=== PATIENT | female | born 1940 | race Caucasian/White ===

== ENCOUNTER → 2020-06-25 15:48 | Outpatient (CLI) | payer MEDICARE, BC, SELFPAY ==
--- NOTE | ~2020-06-25 | XR_ITS ---
XR knee RT 2V DATE: 06/25/2020 16:03 INDICATION: Right knee pain TECHNIQUE: AP and lateral views COMPARISON: None FINDINGS: Moderate osteopenia. No fracture or dislocation or joint effusion. There is minimal periarticular spurring of the patella. There is subtle chondrocalcinosis. Joint spaces are relatively preserved. IMPRESSION: Mild chondral calcinosis Mild osteoarthritis Moderate osteopenia Reviewed, dictated and finalized at location A.
== END ==
PROVIDERS: PCP Internal Medicine Gastroenterology; Visit Provider Nurse Practitioner Family
DX: M17.11 Unilateral primary osteoarthritis, right knee (principal)
CPT/HCPCS: 73560

== ENCOUNTER 2021-01-08 17:05 | IRF | payer MEDICARE, BC, SELFPAY ==
--- NOTE | ~2021-01-08 | XR_ITS ---
XR abdomen/kub 1V 01/16/2021 15:04 Indication: Diarrhea Procedure: KUB Comparison: No prior studies for comparison. Findings: Bowel gas pattern is nonobstructive. There are coarse calcifications in the pelvis, possibl y calcified uterine fibroids. Moderate lumbar spondylosis. No acute osseous abnormality. Lung bases a re unremarkable. Impression: 1: No acute abdominal abnormality. Reviewed, dictated and finalized at location B. Impression: 1: No acute abdominal abnormality.
--- NOTE | 2021-01-08 17:27 | WPDREHABHP ---
H&P: HPI History of Present Illness Date/Time: 01/08/21 17:27 Chief Complaint: Lumbar sacral spinal stenosis Narrative: HISTORY OF PRESENT ILLNESS: The patient's primary rehab impairment category is orthopedic other The etiologic diagnosis is lumbar sacral spinal stenosis I saw this patient [id number] on 01/08/2021 The patient is a 79-year-old female with past medical history of polio with bilateral lower extremity involvement and right facial weakness, Diabetes mellitus, hyperlipidemia, and chronic back and leg pain. Patient presented to [facility] on 01/03/2021 with bilateral lower extremity weakness radiculopathy from her lower back through the right thigh. MRI of the lumbar spine demonstrated L2-L3 mild canal stenosis, L3-4 and L4-5 bulge with moderate to severe canal stenosis, and left L5-S1 left the centric disc herniation and canal stenosis and lateral recess stenosis. On 01/03/[address] Huey Uribe patient underwent an L3-4 through L5-S1 posterior lumbar decompression laminectomy. Postoperative course was complicated by acute blood loss anemia, leukocytosis, fever low-grade of 103.2 on the morning of 01/05/2021. UA and chest x-rays were both negative. Wbc's was initially 12 and down trended to 10.9. Postop pain has been complicated after her block wore off. And patient has now been managed with oral analgesic in transdermal lidocaine patch. Patient will be transferred on Lovenox for DVT prophylaxis until patient is able to ambulate consistently over 150 ft. Therapy was initiated at the acute care facility and the patient transferred to us from [facility] on 01/08/2021 FALLS OR SURGERIES: The patient has had major surgeries consisting of the lumbar laminectomy of 01/03/2021 in the 100 days prior to admission. Patient has had 2 falls in the past year. They had [no] falls with injury in the past year. PRIOR LEVEL OF FUNCTION: Eating was [INDEPENDENT] Oral Care was [INDEPENDENT] Toileting Hygiene was [INDEPENDENT] Shower/Bathing was [INDEPENDENT] Upper Body Dressing was [INDEPENDENT] Lower Body Dressing was [INDEPENDENT] Donning/[place] Footwear was [INDEPENDENT] Rolling Left and Right was [INDEPENDENT] Sit to Lying was [INDEPENDENT] Lying to Sitting was [INDEPENDENT] Sit to Stand was [INDEPENDENT] Bed to Chair Transfers was [INDEPENDENT] Toilet Transfers was [INDEPENDENT] Walking was [INDEPENDENT] [>500 feet] with [NO DEVICE] patient does have a 2 wheeled walker and a cane that she uses for community Wheelchair Mobility was [NOT APPLICABLE PRIOR TO ADMISSION] Stairs were [INDEPENDENT] CURRENT LEVEL OF FUNCTION: Eating was setup for clean-up of Oral Care was set up or clean-up of Toileting Hygiene was dependent Shower/Bathing was substantial to max assistance Upper Body Dressing was partial to moderate assist Lower Body Dressing was substantial to maximal assist Donning/[place] Footwear was substantial to max Rolling Left and Right was partial to moderate Sit to Lying was partial to moderate Lying to Sitting was partial to moderate Sit to Stand was partial to moderate Bed to Chair Transfers were partial to moderate Toilet Transfers were partial to moderate Walking was 30 ft with rolling walker and partial to moderate assistance Wheelchair Mobility was not tested Stairs were not tested GOALS: Our therapists will evaluate the patient and establish the goals. However, upon pre-admission screening, the expected goals were to be independent for upper extremity ADLs and minimal assistance for lower extremity ADLs with self-care, INDEPENDENT with transfers, and [INDEPENDENT] with functional mobility so that the patient can return home. ESTIMATED LENGTH OF STAY: [10-14 days] POTENTIAL BARRIERS TO DISCHARGE: Family needs training. Severity of condition. Architectural barriers. ACTIVE CO-MORBIDITIES PRESENT ON ADMISSION: Active co-morbidities include low back pain, bila
--- NOTE | 2021-01-08 17:34 | ADMGEN ---
This patient, Nely Sweeney, was admitted to [facility] Room 224-02. Patient/family oriented to hospital policies and general routines including ID bracelet, bed and alarms, visiting hours, pain management, procedures, bathroom and other care routines, personal items, smoking policy, room service/diet, and visiting hours. Information on how to activate the Rapid Response Team has been discussed. Patient/Family are encouraged to report perceived risks to care and to ask questions if they do not understand what they are told or what they should do.
[2021-01-08 18:00] VITALS: BP 145/53; PULSE 73; RESP 18; TEMP 36.6; O2SAT 97; BMI 27.5
[2021-01-08 18:35] LABS: Mean Platelet Volume 9.5 fl (7.4-10.4); Platelet Count Result 370 k/mm3 (150-375)
[2021-01-08 18:45] LABS: Estimated Glomerular Filt Rate > 60
[2021-01-08] MEDS: CITALOPRAM HYDROBROMIDE 20 MG TABLET 40 MG PO (21:51)
[2021-01-08] MEDS: HYDROcodone/acetaminophen (*CRX) 5-325 MG TABLET 1 TAB PO (21:58)
[2021-01-08 22:00] VITALS: BP 141/78; PULSE 86; RESP 16; TEMP 37.3; O2SAT 100
[2021-01-08] MEDS: methocarbamoL 500 MG TABLET PO (22:44)
[2021-01-09 00:21] LABS: Glucose Point of Care 143 (65-105)
[2021-01-09] MEDS: HYDROcodone/acetaminophen (*CRX) 5-325 MG TABLET 2 TAB PO ×4 (02:49→20:31)
[2021-01-09 05:22] LABS: Basophils Absolute Auto 0.1 K/mm3 (0.0-0.1); Basophils Percent Auto 0.7 % (0.2-1.2); Eosinophils Absolute Auto 0.3 K/mm3 (0-0.3); Eosinophils Percent Auto 4.4 % (0-4.4); Hematocrit 24.6 % (37.0-47.0); Hemoglobin 7.9 g/dL (12.0-15.0); Immature Granulocyte Absolute 0.08 K/mm3 (0.00-0.031); Immature Granulocyte Percent A 1.1 % (0-0.5); Lymphocytes Absolute Auto 1.67 K/mm3 (0.9-3.2); Lymphocytes Percent Auto 22.3 % (18.3-44.2); Mean Corpuscular HGB Conc 32.1 g/dl (32-36); Mean Corpuscular Hemoglobin 27.1 pg (26-34); Mean Corpuscular Volume 84.5 fl (80-100); Mean Platelet Volume 9.5 fl (7.4-10.4); Monocytes Absolute Auto 0.9 K/mm3 (0.1-0.6); Monocytes Percent Auto 11.5 % (2.6-8.5); Neutrophils Absolute Auto 4.5 K/mm3 (1.3-6.7); Platelet Count Result 395 k/mm3 (150-375); Red Blood Count 2.91 M/mm3 (4.2-5.4); Red Cell Distribution Width 13.2 % (11.5-14.5); White Blood Count 7.5 K/mm3 (4.5-10.0)
[2021-01-09 05:37] LABS: Alanine Aminotransferase 36 U/L (4-35); Albumin Level 3.6 g/dL (3.5-5.1); Alkaline Phosphatase 136 U/L (38-126); Anion Gap 7 mmol/L (8-16); Aspartate Amino Transferase 36 U/L (14-36); Bilirubin,Total 0.3 mg/dL (0.2-1.3); Blood Urea Nitrogen 20 mg/dL (7-17); Calcium 8.6 mg/dL (8.4-10.2); Carbon Dioxide 30 mmol/L (22-30); Chloride 98 mmol/L (98-107); Estimated Glomerular Filt Rate 53; Glucose 124 mg/dL (65-105); Potassium 3.6 mmol/L (3.4-5.0); Sodium 135 mmol/L (137-145)
[2021-01-09 05:52] VITALS: BP 133/67; PULSE 70; RESP 16; TEMP 36.5; O2SAT 98
[2021-01-09 05:56] LABS: Hemoglobin A1C 5.8 % (<5.7)
[2021-01-09] MEDS: ENOXAPARIN 40 MG/0.4 ML SYRINGE SUB-Q (06:00)
[2021-01-09 06:51] LABS: Glucose Point of Care 127 (65-105)
[2021-01-09] MEDS: metFORMIN HCL 500 MG TABLET 1000 MG PO ×2 (09:19→17:58)
[2021-01-09] MEDS: GABAPENTIN 300 MG CAPSULE PO (09:19)
[2021-01-09] MEDS: PIOGLITAZONE HCL 15 MG TAB PO (09:19)
[2021-01-09] MEDS: methocarbamoL 500 MG TABLET PO ×2 (09:19→13:10)
[2021-01-09 12:30] VITALS: BMI 27.5
[2021-01-09 14:00] VITALS: BP 97/62; PULSE 79; RESP 14; TEMP 37.3; O2SAT 98
--- NOTE | 2021-01-09 15:17 | WPDNEURORHBP ---
Subjective Date/time seen: 01/09/21 15:17 Patient is seen during physical therapy. Patient complains of pain. Review of Systems Review of Systems: All systems reviewed & are unremarkable except as noted in HPI and below Exam Narrative: Exam Narrative: Patient is quite anxious and anticipates pain. Head reveals right facial paralysis. External ocular muscles are intact. eye contact is fair minus. Speech is dysarthric due to facial paralysis. Heart rate and rhythm is regular. Lungs are clear to auscultation. Abdomen is obese soft nontender bilateral upper extremity strength are 4-5 bilateral hip weakness is are noted at 2 at on the left and 2+ on the right. Babinski's are upgoing. Deep tendon reflexes are 2/4 to patella tendon. Objective Data Vital Signs Vital Signs: Vital Signs - 24 hr 01/08/21 18:00 01/08/21 22:00 01/09/21 05:52 Temperature 36.6 C 37.3 C 36.5 C Pulse Rate 73 86 70 Respiratory Rate 18 16 16 Blood Pressure 145/53 H 141/78 H 133/67 Pulse Oximetry 97 100 98 Intake/Output Intake/Output: Intake & Output 01/06/21 01/07/21 01/08/21 01/09/21 23:59 23:59 23:59 23:59 Intake Total 240 600 Balance 240 600 Meds/Results Medications: Active Medications Generic Name Dose Route Start Last Admin Trade Name Freq PRN Reason Stop Dose Admin Hydrocodone Bitart/Acetaminophen 1 tab 01/08/21 19:31 01/08/21 21:58 Hydrocodone/Acetaminophen (*Crx) 5-325 Mg Tablet PO 1 tab Q4H PRN Administration Pain (Scale Score 4-6) Hydrocodone Bitart/Acetaminophen 2 tab 01/08/21 19:31 01/09/21 02:49 Hydrocodone/Acetaminophen (*Crx) 5-325 Mg Tablet PO 2 tab Q4H PRN Administration Pain (Scale Score 7-10) Hydrocodone Bitart/Acetaminophen 2 tab 01/09/21 08:44 01/09/21 13:11 Hydrocodone/Acetaminophen (*Crx) 5-325 Mg Tablet PO 2 tab BID@0700,1200 SAMUEL Administration Citalopram Hydrobromide 40 mg 01/08/21 21:00 01/08/21 21:51 Citalopram Hydrobromide 20 Mg Tablet PO 40 mg HS SAMUEL Administration Dextrose 12.5 gm 01/08/21 17:37 Dextrose 50% 25 Gm/50 Ml Syringe IV PUSH PRN PRN Hypoglycemia Protocol Enoxaparin Sodium 40 mg 01/09/21 06:30 01/09/21 06:00 Enoxaparin 40 Mg/0.4 Ml Syringe SUB-Q 40 mg DAILY@0630 SAMUEL Administration Gabapentin 300 mg 01/09/21 09:00 01/09/21 09:19 Gabapentin 300 Mg Capsule PO 300 mg DAILY SAMUEL Administration Glucagon 1 mg 01/08/21 17:37 Glucagon For Inj 1 Mg Vial IM PRN PRN Hypoglycemia Protocol Glucose 15 gm 01/08/21 17:37 Glucose Oral Gel 15 Gm Of Glucse In 37.5 Gm Tube PO PRN PRN Hypoglycemia Protocol Dextrose 1,000 mls @ 100 mls/hr 01/08/21 17:37 Dextrose 5% 1,000 Ml IVPB PRN PRN Hypoglycemia Protocol Lidocaine 2 patch 01/10/21 09:00 Lidocaine 5% Patch TRANSDERM DAILY SAMUEL Metformin HCl 1,000 mg 01/09/21 08:00 01/09/21 09:19 Metformin Hcl 500 Mg Tablet PO 1,000 mg BIDWM SAMUEL Administration Methocarbamol 500 mg 01/08/21 19:31 01/08/21 22:44 Methocarbamol 500 Mg Tablet PO 500 mg Q12H PRN Administration Muscle Spasm Methocarbamol 500 mg 01/09/21 09:00 01/09/21 13:10 Methocarbamol 500 Mg Tablet PO 500 mg BID@0700,1200 SAMUEL Administration Pantoprazole Sodium 40 mg 01/08/21 19:31 Pantoprazole 40 Mg Tablet PO QAM PRN Gastric Reflux Pioglitazone HCl 15 mg 01/09/21 09:00 01/09/21 09:19 Pioglitazone Hcl 15 Mg Tab PO 15 mg DAILY SAMUEL Administration Labs Labs: Laboratory Results - last 24 hr 01/08/21 01/08/21 01/08/21 18:28 18:29 22:46 WBC RBC Hgb Hct MCV MCH MCHC RDW Plt Count 370 MPV 9.5 Immature Gran % (Auto) Neut % (Auto) Lymph % (Auto) [place] % (Auto) Eos % (Auto) Baso % (Auto) Lymph # (Auto) [place] # (Auto) Eos # (Auto) Baso # (Auto) Abs Immat Gran (auto) Absolute Neuts (auto)
[2021-01-09 17:33] LABS: Glucose Point of Care 113 (65-105)
[2021-01-09] MEDS: CITALOPRAM HYDROBROMIDE 20 MG TABLET 40 MG PO (20:33)
[2021-01-09 21:36] VITALS: BP 119/56; PULSE 80; RESP 16; TEMP 37.4; O2SAT 99
[2021-01-10 06:00] VITALS: BP 142/59; PULSE 76; RESP 16; TEMP 36.8; O2SAT 98
[2021-01-10] MEDS: ENOXAPARIN 40 MG/0.4 ML SYRINGE SUB-Q (06:31)
[2021-01-10] MEDS: HYDROcodone/acetaminophen (*CRX) 5-325 MG TABLET 1 TAB PO ×4 (06:31→20:18)
[2021-01-10] MEDS: methocarbamoL 500 MG TABLET PO ×2 (06:38→11:42)
[2021-01-10 07:03] LABS: Glucose Point of Care 119 (65-105)
[2021-01-10] MEDS: LIDOCAINE 5% PATCH 2 PATCH TRANSDERM (09:37)
--- NOTE | 2021-01-10 09:37 | RPD ---
INDIVIDUALIZED PLAN OF CARE FOR Nely Sweeney Brief Synthesis of Pre-Admission Screen, Post-Admission Evaluation and Therapy Evaluations: The patient presents to rehab with lumbar sacral spinal stenosis. Comorbidities include low back pain, bilateral leg pain, recurrent falls, disequilibrium, diabetic neuropathy, leukocytosis, fever, status post L3-S1 decompressive laminectomy, acute blood loss anemia, and acute postoperative pain. The complexity of the patient's medical management, nursing, and therapy needs require an inpatient rehab hospital stay with a physician-led interdisciplinary team approach. The patient?s needs will be best met in an intensive program vs. at a lower level of care. The patient requires physician services for medical oversight, management of post-op complications (acute blood loss anemia, leukocytosis, fever) in setting of present comorbidities, and pain management. The patient requires nursing services for anticoagulation therapy, diabetes training, DVT prophylactics, infection protection, medication management and education, pressure relief, and wound care Deficits include:ADLs, Balance, Endurance, Family Training/Education, Mobility, Pain Management, ROM, Safety, Strength, and Transfers. Wire Stripper/Case Management for: Discharge Planning and Patient/Family Counseling Physical Therapy: 5 days per week for 75 minutes. Treatments may include: Therapeutic Exercise, Gait Training, Neuromuscular Re-education, Transfer Training, Community Reintegration, Bed Mobility, Patient/Family Education, Wheelchair Mobility Group Therapy/Concurrent Therapy Rationales: -Improve attention span during functional activities in a distracted environment. -Enhance problem solving and/or adequate judgment skills during functional activities in a distracted environment. -Promote increased safety awareness in a distracted environment to reduce fall risk with functional tasks, transfers, and ambulation to allow a more safe, self-sufficient return to the home environment. -Improve dynamic balance skills to promote safety and independence with functional activities in a distracted environment for maximum gain. Occupational Therapy: 5 days per week for 75 minutes. Treatments may include: Therapeutic Exercise, Therapeutic Activity, Cognitive Training, Self-Care Transfer Training, Community Reintegration, Home Management, Patient/Family Education, Wheelchair Mobility Training, Energy Conservation Training Group Therapy/Concurrent Therapy Rationales: -Allow therapist to observe and teach generalization and carry-over of skills learned in individual therapy. -Enhance problem solving and sequencing skills during therapeutic activities in a distracted environment. -Promote increased safety awareness in a realistic setting to reduce fall risk with functional tasks due to visual and verbal distractions. -Increase functional level with ADLs, ADL transfers and use of adaptive equipment through therapeutic activities with others while promoting safety to allow a more safe, self-sufficient return home. Speech Therapy: 5 days per week for 30 minutes. Treatments may include: Dysphasia Therapy, Speech/Language/Communication Therapy, Cognitive Training, Patient/Family Education Group Therapy/Concurrent Therapy - Rationale: -Allow therapist to observe and teach generalization and carry-over of skills learned in individual therapy. -Improve comprehension skills with complex or abstract ideas through discussion in a realistic setting. -Enhance problem solving skills with complex issues during activities in a distracted environment. -Promote increased memory skills and concentration in a distracted environment for a safe transition home. -Improve attention and focus with language/communication skills in a realistic and supportive therapeutic setting. -Allow for practice of expression of basic needs and ideas through functional activities with others. Medical Prognosis: Good An
[2021-01-10] MEDS: metFORMIN HCL 500 MG TABLET 1000 MG PO ×2 (09:38→18:45)
[2021-01-10] MEDS: PIOGLITAZONE HCL 15 MG TAB PO (09:38)
[2021-01-10 14:00] VITALS: BP 117/57; PULSE 82; RESP 16; TEMP 37.6; O2SAT 97
--- NOTE | 2021-01-10 16:09 | WPDNEURORHBP ---
Subjective Date/time seen: 01/10/21 16:09 patient complains of bilateral lower extremity pain. Review of Systems Review of Systems: All systems reviewed & are unremarkable except as noted in HPI and below Functional Status Ambulation Ability Ability to Ambulate 10 Feet: Moderate Assistance X 1 Ambulation Assistive Devices: Walker, Wheeled Exam Narrative: Exam Narrative: Patient is quite anxious and anticipates pain. Head reveals right facial paralysis. External ocular muscles are intact. eye contact is fair minus. Speech is dysarthric due to facial paralysis. Heart rate and rhythm is regular. Lungs are clear to auscultation. Abdomen is obese soft nontender bilateral upper extremity strength are 4-5 bilateral hip weakness is are noted at 2 at on the left and 2+ on the right. Babinski's are upgoing. Deep tendon reflexes are 2/4 to patella tendon. Objective Data Vital Signs Vital Signs: Vital Signs - 24 hr 01/09/21 21:36 01/10/21 06:00 01/10/21 14:00 Temperature 37.4 C 36.8 C 37.6 C Pulse Rate 80 76 82 Respiratory Rate 16 16 16 Blood Pressure 119/56 L 142/59 H 117/57 L Pulse Oximetry 99 98 97 Intake/Output Intake/Output: Intake & Output 01/07/21 01/08/21 01/09/21 01/10/21 23:59 23:59 23:59 23:59 Intake Total 240 720 600 Balance 240 720 600 Meds/Results Medications: Active Medications Generic Name Dose Route Start Last Admin Trade Name Freq PRN Reason Stop Dose Admin Hydrocodone Bitart/Acetaminophen 1 tab 01/08/21 19:31 01/10/21 13:24 Hydrocodone/Acetaminophen (*Crx) 5-325 Mg Tablet PO 1 tab Q4H PRN Administration Pain (Scale Score 4-6) Hydrocodone Bitart/Acetaminophen 2 tab 01/08/21 19:31 01/09/21 20:31 Hydrocodone/Acetaminophen (*Crx) 5-325 Mg Tablet PO 2 tab Q4H PRN Administration Pain (Scale Score 7-10) Hydrocodone Bitart/Acetaminophen 1 tab 01/10/21 07:00 01/10/21 11:41 Hydrocodone/Acetaminophen (*Crx) 5-325 Mg Tablet PO 1 tab BID@0700,1200 SAMUEL Administration Citalopram Hydrobromide 40 mg 01/08/21 21:00 01/09/21 20:33 Citalopram Hydrobromide 20 Mg Tablet PO 40 mg HS SAMUEL Administration Dextrose 12.5 gm 01/08/21 17:37 Dextrose 50% 25 Gm/50 Ml Syringe IV PUSH PRN PRN Hypoglycemia Protocol Enoxaparin Sodium 40 mg 01/09/21 06:30 01/10/21 06:31 Enoxaparin 40 Mg/0.4 Ml Syringe SUB-Q 40 mg DAILY@0630 SAMUEL Administration Gabapentin 300 mg 01/10/21 21:00 Gabapentin 300 Mg Capsule PO HS SAMUEL Glucagon 1 mg 01/08/21 17:37 Glucagon For Inj 1 Mg Vial IM PRN PRN Hypoglycemia Protocol Glucose 15 gm 01/08/21 17:37 Glucose Oral Gel 15 Gm Of Glucse In 37.5 Gm Tube PO PRN PRN Hypoglycemia Protocol Dextrose 1,000 mls @ 100 mls/hr 01/08/21 17:37 Dextrose 5% 1,000 Ml IVPB PRN PRN Hypoglycemia Protocol Lidocaine 2 patch 01/10/21 09:00 01/10/21 09:37 Lidocaine 5% Patch TRANSDERM 2 patch DAILY SAMUEL Administration Metformin HCl 1,000 mg 01/09/21 08:00 01/10/21 09:38 Metformin Hcl 500 Mg Tablet PO 1,000 mg BIDWM SAMUEL Administration Methocarbamol 500 mg 01/08/21 19:31 01/08/21 22:44 Methocarbamol 500 Mg Tablet PO 500 mg Q12H PRN Administration Muscle Spasm Methocarbamol 500 mg 01/09/21 09:00 01/10/21 11:42 Methocarbamol 500 Mg Tablet PO 500 mg BID@0700,1200 SAMUEL Administration Pantoprazole Sodium 40 mg 01/08/21 19:31 Pantoprazole 40 Mg Tablet PO QAM PRN Gastric Reflux Pioglitazone HCl 15 mg 01/09/21 09:00 01/10/21 09:38 Pioglitazone Hcl 15 Mg Tab PO 15 mg DAILY SAMUEL Administration Labs Labs: Laboratory Results - last 24 hr 01/09/21 01/10/21 17:31 07:00 POC Capillary Glucose 113 H 119 H Progress Note: A&P Assessment and Plan (1) Degenerative lumbar spinal stenosis: Code(s): M48.061 - Spinal stenosis, lumbar region without neurogenic claudication
[2021-01-10 17:25] LABS: Glucose Point of Care 90 (65-105)
[2021-01-10] MEDS: CITALOPRAM HYDROBROMIDE 20 MG TABLET 40 MG PO (20:19)
[2021-01-10] MEDS: GABAPENTIN 300 MG CAPSULE PO (20:19)
[2021-01-10 22:00] VITALS: BP 119/59; PULSE 72; RESP 16; TEMP 36.4; O2SAT 98
[2021-01-11 05:56] VITALS: BP 146/77; PULSE 71; RESP 16; TEMP 37.1; O2SAT 98
[2021-01-11] MEDS: HYDROcodone/acetaminophen (*CRX) 5-325 MG TABLET 1 TAB PO ×4 (06:48→21:12)
[2021-01-11] MEDS: methocarbamoL 500 MG TABLET PO (06:48)
[2021-01-11] MEDS: ENOXAPARIN 40 MG/0.4 ML SYRINGE SUB-Q (06:49)
[2021-01-11 06:55] LABS: Glucose Point of Care 129 (65-105)
[2021-01-11] MEDS: LIDOCAINE 5% PATCH 2 PATCH TRANSDERM (09:16)
[2021-01-11] MEDS: metFORMIN HCL 500 MG TABLET 1000 MG PO ×2 (09:16→16:31)
[2021-01-11] MEDS: PIOGLITAZONE HCL 15 MG TAB PO (09:16)
--- NOTE | 2021-01-11 10:05 | WPDNEURORHBP ---
Subjective Date/time seen: 01/11/21 10:05 Interval history: DX lumbar sacral spinal stenosis The patient is a 79-year-old female with past medical history of polio with bilateral lower extremity involvement and right facial weakness, Diabetes mellitus, hyperlipidemia, and chronic back and leg pain. Patient presented to [facility] on 01/03/2021 with bilateral lower extremity weakness radiculopathy from her lower back through the right thigh. MRI of the lumbar spine demonstrated L2-L3 mild canal stenosis, L3-4 and L4-5 bulge with moderate to severe canal stenosis, and left L5-S1 left the centric disc herniation and canal stenosis and lateral recess stenosis. On 01/03/[address] Huey Uribe patient underwent an L3-4 through L5-S1 posterior lumbar decompression laminectomy. Postoperative course was complicated by acute blood loss anemia, leukocytosis, fever low-grade of 103.2 on the morning of 01/05/2021. UA and chest x-rays were both negative. Wbc's was initially 12 and down trended to 10.9. Postop pain has been complicated after her block wore off. And patient has now been managed with oral analgesic and transdermal lidocaine patch. Patient [facility] be [facility] for D[facility] prophylaxis until patient is able to ambulate consistently over 150 ft. Review of Systems Review of Systems: All systems reviewed & are unremarkable except as noted in HPI and below Functional Status Ambulation Ability Ability to Ambulate 10 Feet: Moderate Assistance X 1 Ambulation Assistive Devices: Walker, Wheeled Exam Narrative: Exam Narrative: Patient appears more calm. Head reveals right facial paralysis. External ocular muscles are intact. eye contact is fair minus. Speech is dysarthric due to facial paralysis. Heart rate and rhythm is regular. Lungs are clear to auscultation. Abdomen is obese soft nontender bilateral upper extremity strength are 4-5 bilateral hip weakness is are noted at 2 at on the left and 2+ on the right. Babinski's are upgoing. Deep tendon reflexes are 2/4 to patella tendon. Objective Data Vital Signs Vital Signs: Vital Signs - 24 hr 01/10/21 14:00 01/10/21 22:00 01/11/21 05:56 Temperature 37.6 C 36.4 C 37.1 C Pulse Rate 82 72 71 Respiratory Rate 16 16 16 Blood Pressure 117/57 L 119/59 L 146/77 H Pulse Oximetry 97 98 98 Intake/Output Intake/Output: Intake & Output 01/08/21 01/09/21 01/10/21 01/11/21 23:59 23:59 23:59 23:59 Intake Total 240 720 840 240 Balance 240 720 840 240 Meds/Results Medications: Active Medications Generic Name Dose Route Start Last Admin Trade Name Freq PRN Reason Stop Dose Admin Hydrocodone Bitart/Acetaminophen 1 tab 01/08/21 19:31 01/10/21 20:18 Hydrocodone/Acetaminophen (*Crx) 5-325 Mg Tablet PO 1 tab Q4H PRN Administration Pain (Scale Score 4-6) Hydrocodone Bitart/Acetaminophen 2 tab 01/08/21 19:31 01/09/21 20:31 Hydrocodone/Acetaminophen (*Crx) 5-325 Mg Tablet PO 2 tab Q4H PRN Administration Pain (Scale Score 7-10) Hydrocodone Bitart/Acetaminophen 1 tab 01/10/21 07:00 01/11/21 06:48 Hydrocodone/Acetaminophen (*Crx) 5-325 Mg Tablet PO 1 tab BID@0700,1200 SAMUEL Administration Citalopram Hydrobromide 40 mg 01/08/21 21:00 01/10/21 20:19 Citalopram Hydrobromide 20 Mg Tablet PO 40 mg HS SAMUEL Administration Dextrose 12.5 gm 01/08/21 17:37 Dextrose 50% 25 Gm/50 Ml Syringe IV PUSH PRN PRN Hypoglycemia Protocol Enoxaparin Sodium 40 mg 01/09/21 06:30 01/11/21 06:49 Enoxaparin 40 Mg/0.4 Ml Syringe SUB-Q 40 mg DAILY@0630 SAMUEL Administration Gabapentin 300 mg 01/10/21 21:00 01/10/21 20:19 Gabapentin 300 Mg Capsule PO 300 mg HS SAMUEL Administration Glucagon 1 mg 01/08/21 17:37 Glucagon For Inj 1 Mg Vial IM PRN PRN Hypoglycemia Protocol Glucose 15 gm 01/08/21 17:37 Glucose Oral Gel 15 Gm Of Glucse In 37.5 Gm Tube PO PRN PRN Hypoglycemia
[2021-01-11] MEDS: methocarbamoL 750 MG TABLET PO ×2 (11:01→16:31)
[2021-01-11 14:00] VITALS: BP 125/59; PULSE 85; RESP 18; TEMP 36.7; O2SAT 97
[2021-01-11 16:44] LABS: Glucose Point of Care 111 (65-105)
[2021-01-11] MEDS: CITALOPRAM HYDROBROMIDE 20 MG TABLET 40 MG PO (21:02)
[2021-01-11] MEDS: GABAPENTIN 300 MG CAPSULE PO (21:03)
[2021-01-11 22:00] VITALS: BP 132/63; PULSE 75; RESP 18; TEMP 36.3; O2SAT 97
[2021-01-12 06:00] VITALS: BP 147/65; PULSE 69; RESP 18; TEMP 36.9; O2SAT 97
[2021-01-12] MEDS: HYDROcodone/acetaminophen (*CRX) 5-325 MG TABLET 1 TAB PO ×3 (06:32→20:18)
[2021-01-12] MEDS: ENOXAPARIN 40 MG/0.4 ML SYRINGE SUB-Q (06:44)
[2021-01-12 06:52] LABS: Glucose Point of Care 113 (65-105)
[2021-01-12] MEDS: methocarbamoL 750 MG TABLET PO ×3 (08:24→17:12)
[2021-01-12] MEDS: metFORMIN HCL 500 MG TABLET 1000 MG PO ×2 (08:24→17:12)
[2021-01-12] MEDS: PIOGLITAZONE HCL 15 MG TAB PO (08:25)
[2021-01-12] MEDS: LIDOCAINE 5% PATCH 2 PATCH TRANSDERM (08:25)
--- NOTE | 2021-01-12 08:41 | WPDNEURORHBP ---
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 Patient presented to [facility] on 01/03/2021 with bilateral lower extremity weakness, radiculopathy from her lower back through the right thigh. MRI of the lumbar spine demonstrated L2-L3 mild canal stenosis, L3-4 and L4-5 bulge with moderate to severe canal stenosis, and left L5-S1 left the centric disc herniation and canal stenosis and lateral recess stenosis. On 01/03/[address] Huey Uribe, patient underwent an L3-4 through L5-S1 posterior lumbar decompression laminectomy. Postoperative course was complicated by acute blood loss anemia, leukocytosis, fever low-grade of 103.2 on the morning of 01/05/2021. UA and chest x-rays were both negative. Wbc's was initially 12 and down trended to 10.9. Postop pain has been complicated after her block wore off. And patient has now been managed with oral analgesic and transdermal lidocaine patch. Patient will be transferred on Lovenox for DVT prophylaxis until patient is able to ambulate consistently over 150 ft. Patient is alert and bright. Patient states she is not in pain currently. Patient did not walk with therapy yesterday because of pain. Will increase gabapentin Review of Systems Review of Systems: All systems reviewed & are unremarkable except as noted in HPI and below Functional Status Ambulation Ability Ability to Ambulate 10 Feet: Moderate Assistance X 1 Ambulation Assistive Devices: Walker, Wheeled Exam Narrative: Exam Narrative: Patient more alert and does not voice any pain symptoms for the first time. Head reveals right facial paralysis. External ocular muscles are intact. eye contact is fair minus. Speech is dysarthric due to facial paralysis. Heart rate and rhythm is regular. Lungs are clear to auscultation. Abdomen is obese soft nontender. Bilateral upper extremity strength are 4-5, bilateral hip weakness is are noted at 2+at on the left and 3- on the right. Babinski's are upgoing. Deep tendon reflexes are 2/4 to patella tendon. No spasms noted on exam today. Patient did not walk yesterday because of pain. Objective Data Vital Signs Vital Signs: Vital Signs - 24 hr 01/11/21 14:00 01/11/21 22:00 01/12/21 06:00 Temperature 36.7 C 36.3 C L 36.9 C Pulse Rate 85 75 69 Respiratory Rate 18 18 18 Blood Pressure 125/59 L 132/63 147/65 H Pulse Oximetry 97 97 97 Intake/Output Intake/Output: Intake & Output 01/09/21 01/10/21 01/11/21 01/12/21 23:59 23:59 23:59 23:59 Intake Total 720 840 810 120 Balance 720 840 810 120 Meds/Results Medications: Active Medications Generic Name Dose Route Start Last Admin Trade Name Freq PRN Reason Stop Dose Admin Hydrocodone Bitart/Acetaminophen 1 tab 01/08/21 19:31 01/11/21 21:12 Hydrocodone/Acetaminophen (*Crx) 5-325 Mg Tablet PO 1 tab Q4H PRN Administration Pain (Scale Score 4-6) Hydrocodone Bitart/Acetaminophen 2 tab 01/08/21 19:31 01/09/21 20:31 Hydrocodone/Acetaminophen (*Crx) 5-325 Mg Tablet PO 2 tab Q4H PRN Administration Pain (Scale Score 7-10) Hydrocodone Bitart/Acetaminophen 1 tab 01/10/21 07:00 01/12/21 06:32 Hydrocodone/Acetaminophen (*Crx) 5-325 Mg Tablet PO 1 tab BID@0700,1200 SAMUEL Administration Citalopram Hydrobromide 40 mg 01/08/21 21:00 01/11/21 21:02 Citalopram Hydrobromide 20 Mg Tablet PO 40 mg HS SAMUEL Administration Dextrose 12.5 gm 01/08/21 17:37 Dextrose 50% 25 Gm/50 Ml Syringe IV PUSH PRN PRN Hypoglycemia Protocol Enoxaparin Sodium 40 mg 01/09/21 06:30 01/12/21 06:44 Enoxaparin 40 Mg/0.4 Ml Syringe SUB-Q 40 mg DAILY@0630 SAMUEL Administration G
[2021-01-12] MEDS: GABAPENTIN 100 MG CAPSULE PO ×2 (09:12→13:47)
[2021-01-12 14:00] VITALS: BP 107/46; PULSE 83; RESP 16; TEMP 36.7; O2SAT 93
[2021-01-12 17:09] LABS: Glucose Point of Care 97 (65-105)
[2021-01-12] MEDS: CITALOPRAM HYDROBROMIDE 20 MG TABLET 40 MG PO (20:17)
[2021-01-12] MEDS: GABAPENTIN 300 MG CAPSULE PO (20:17)
[2021-01-12 20:20] VITALS: PULSE 64; RESP 16; O2SAT 95
[2021-01-12 21:24] VITALS: BP 116/49; PULSE 64; RESP 16; TEMP 36.5; O2SAT 95
[2021-01-13 06:00] VITALS: BP 139/65; PULSE 73; RESP 16; TEMP 36.2; O2SAT 95
[2021-01-13] MEDS: ENOXAPARIN 40 MG/0.4 ML SYRINGE SUB-Q (06:17)
[2021-01-13] MEDS: HYDROcodone/acetaminophen (*CRX) 5-325 MG TABLET 1 TAB PO ×2 (06:20→11:59)
[2021-01-13 06:48] LABS: Glucose Point of Care 112 (65-105)
[2021-01-13] MEDS: GABAPENTIN 100 MG CAPSULE PO ×2 (08:38→13:02)
[2021-01-13] MEDS: methocarbamoL 750 MG TABLET PO ×3 (08:38→16:59)
[2021-01-13] MEDS: metFORMIN HCL 500 MG TABLET 1000 MG PO ×2 (08:38→16:59)
[2021-01-13] MEDS: LIDOCAINE 5% PATCH 2 PATCH TRANSDERM (08:38)
[2021-01-13] MEDS: PIOGLITAZONE HCL 15 MG TAB PO (08:38)
--- NOTE | 2021-01-13 11:37 | PCPTNOTE ---
eNly Sweeney was evaluated for a two wheeled walker on 01/13/2021 by this physical therapist branch assistant. The two wheeled walker will resolve patient's mobility limitations and will be used for ADL's within the home. The patient can safely use the two wheeled walker. ?The two wheeled walker will resolve the patient?s mobility deficits, including spinal precautions, increased pain, decreased endurance, decreased strength, decreased balance, and decreased safety awareness. Sara Singh, HR RECRUITER
[2021-01-13 14:00] VITALS: BP 122/55; PULSE 77; RESP 20; TEMP 36.3; O2SAT 95
--- NOTE | 2021-01-13 14:15 | WPDNEURORHBP ---
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 Patient presented to [facility] on 01/03/2021 with bilateral lower extremity weakness, radiculopathy from her lower back through the right thigh. MRI of the lumbar spine demonstrated L2-L3 mild canal stenosis, L3-4 and L4-5 bulge with moderate to severe canal stenosis, and left L5-S1 left the centric disc herniation and canal stenosis and lateral recess stenosis. On 01/03/[address] Huey Uribe, patient underwent an L3-4 through L5-S1 posterior lumbar decompression laminectomy. Postoperative course was complicated by acute blood loss anemia, leukocytosis, fever low-grade of 103.2 on the morning of 01/05/2021. UA and chest x-rays were both negative. Wbc's was initially 12 and down trended to 10.9. Postop pain has been complicated after her block wore off. And patient has now been managed with oral analgesic and transdermal lidocaine patch. Patient will be transferred on Lovenox for DVT prophylaxis until patient is able to ambulate consistently over 150 ft. Patient only walking short distance. Pain is limiting factor Review of Systems Review of Systems: All systems reviewed & are unremarkable except as noted in HPI and below Functional Status Ambulation Ability Ability to Ambulate 10 Feet: Moderate Assistance X 1 Ambulation Assistive Devices: Walker, Wheeled Exam Narrative: Exam Narrative: Patient more alert and does not voice any pain symptoms for the first time. Head reveals right facial paralysis. External ocular muscles are intact. Speech is dysarthric due to facial paralysis. Heart rate and rhythm is regular. Lungs are clear to auscultation. Abdomen is obese soft nontender. Bilateral upper extremity strength are 4-5, bilateral hip weakness is are noted at 2+at on the left and 3- on the right. Babinski's are upgoing. Deep tendon reflexes are 2/4 to patella tendon. No spasms noted on exam today. Objective Data Vital Signs Vital Signs: Vital Signs - 24 hr 01/12/21 20:20 01/12/21 21:24 01/13/21 06:00 Temperature 36.5 C 36.2 C L Pulse Rate 64 64 73 Respiratory Rate 16 16 16 Blood Pressure 116/49 L 139/65 Pulse Oximetry 95 95 95 Intake/Output Intake/Output: Intake & Output 01/10/21 01/11/21 01/12/21 01/13/21 23:59 23:59 23:59 23:59 Intake Total 840 810 600 480 Balance 840 810 600 480 Meds/Results Medications: Active Medications Generic Name Dose Route Start Last Admin Trade Name Freq PRN Reason Stop Dose Admin Hydrocodone Bitart/Acetaminophen 1 tab 01/08/21 19:31 01/12/21 20:18 Hydrocodone/Acetaminophen (*Crx) 5-325 Mg Tablet PO 1 tab Q4H PRN Administration Pain (Scale Score 4-6) Hydrocodone Bitart/Acetaminophen 2 tab 01/08/21 19:31 01/09/21 20:31 Hydrocodone/Acetaminophen (*Crx) 5-325 Mg Tablet PO 2 tab Q4H PRN Administration Pain (Scale Score 7-10) Hydrocodone Bitart/Acetaminophen 1 tab 01/10/21 07:00 01/13/21 11:59 Hydrocodone/Acetaminophen (*Crx) 5-325 Mg Tablet PO 1 tab BID@0700,1200 SAMUEL Administration Citalopram Hydrobromide 40 mg 01/08/21 21:00 01/12/21 20:17 Citalopram Hydrobromide 20 Mg Tablet PO 40 mg HS SAMUEL Administration Dextrose 12.5 gm 01/08/21 17:37 Dextrose 50% 25 Gm/50 Ml Syringe IV PUSH PRN PRN Hypoglycemia Protocol Enoxaparin Sodium 40 mg 01/09/21 06:30 01/13/21 06:17 Enoxaparin 40 Mg/0.4 Ml Syringe SUB-Q 40 mg DAILY@0630 SAMUEL Administration Gabapentin 300 mg 01/10/21 21:00 01/12/21 20:17 Gabapentin 300 Mg Capsule PO 300 mg HS SAMUEL Administration Gabapentin 100 mg 01/12/21 09:00 01/13/21 13:02 Gabapentin 100
--- NOTE | 2021-01-13 14:48 | PCPTNOTE ---
Sara Singh PTA completed an inpatient rehab wheelchair evaluation on Nely Sweeney on 01/13/2021. The patient is unable to safely and independently ambulate household distances due to their current impairments. Their diagnosis is decompressive laminectomy and their impairments include decreased strength, decreased endurance, decreased range of motion, decreased balance, lower extremity weakness, and ataxia. Nely's weight bearing status is weight-bearing as tolerated on the bilateral lower legs. The patient demonstrates significant functional mobility limitations that impair their ability to participate in mobility-related activities of daily living (MRADLs), including toileting, feeding, dressing, grooming, and bathing in the customary locations in the home. These limitations cannot be sufficiently resolved by the use of an appropriately fitted cane or walker. It is recommended that the patient utilize a wheelchair for functional mobility within the home in order to facilitate optimal safety, independence and participation in all MRADL's and adequately access their home environment on a regular basis. The patient's home provides adequate access between rooms, maneuvering space, and surfaces to accommodate the recommended wheelchair. The use of a wheelchair for functional mobility is strongly recommended and the patient is receptive to using the wheelchair. The use of this wheelchair will significantly improve the patient's ability to participate in MRADLS and the patient will use it on a regular basis in the home. This will facilitate optimal safety, independence, and participation. The patient has demonstrated sufficient physical and mental capabilities needed to safely propel a manual wheelchair that is provided in the home during a typical day. Recommended Wheelchair Frame: STANDARD Recommended Wheelchair Size: 16X16, seat to floor height 16 inches (patient height 4ft 10in) Recommended Wheelchair Cushion: STANDARD Wheelchair Leg Recommendations: BILATERAL SWING AWAY LEG RESTS -Anti-tippers are recommended due to patient demonstrating increased risk for falls. They would benefit from anti-tippers with added safety and stabilization. -Adjustable arm height is recommended because the patient requires an arm height that is different than that which is available using non-adjustable arms. The patient spends at least 2 hours per day in the wheelchair. Sara Singh PTA 01/13/21 Evaluating Therapist Date I agree with and certify that the above recommendation is medically necessary. Referring Physician Date I agree with and certify that the above recommendation is medically necessary. Referring Physician Date
[2021-01-13 17:26] LABS: Glucose Point of Care 102 (65-105)
[2021-01-13] MEDS: CITALOPRAM HYDROBROMIDE 20 MG TABLET 40 MG PO (21:32)
[2021-01-13] MEDS: GABAPENTIN 300 MG CAPSULE PO (21:32)
[2021-01-13 21:38] VITALS: BP 100/78; PULSE 84; RESP 16; TEMP 36.7; O2SAT 100
[2021-01-13] MEDS: HYDROcodone/acetaminophen (*CRX) 5-325 MG TABLET 2 TAB PO (21:39)
[2021-01-14 06:00] VITALS: BP 134/64; PULSE 75; RESP 16; TEMP 36.7; O2SAT 98
[2021-01-14] MEDS: ENOXAPARIN 40 MG/0.4 ML SYRINGE SUB-Q (06:30)
[2021-01-14] MEDS: HYDROcodone/acetaminophen (*CRX) 5-325 MG TABLET 1 TAB PO ×2 (06:30→21:05)
[2021-01-14 06:47] LABS: Glucose Point of Care 112 (65-105)
--- NOTE | 2021-01-14 10:54 | PCNFU ---
Nutrition Follow-Up Complete: Increased protein/kcal needs related to increased demands for healing and recovery as evidenced by recent laminectomy. Goal: Patient to consume 75% of meals/supplements or greater. Pt current nutrition is Diabetic Carbohydrate Consistent Diet. Last recorded weight is 59.7 kg. Bowel Motility: Last BM: 01/13 Labs Reviewed: Glu 112 Meds Noted: Hydrocodone, Celexa, Lovenox, Gabapentin, Lidoderm, Metformin, Robaxin, Protonix, Actos. Additional Notes: Agree with current diet order. Patient reports that she has a poor appetite but eats when meals come. Patient is eating 50 to 100% of meals. Patient requested discontinuing Glucerna Nutritional Shakes because patient thinks it might contribute to her loose stools. Patient explained that she does not each much when she is at home. Follow up in 7 days.
[2021-01-14] MEDS: metFORMIN HCL 500 MG TABLET 1000 MG PO ×2 (10:56→17:46)
[2021-01-14] MEDS: methocarbamoL 750 MG TABLET PO ×3 (10:56→17:46)
[2021-01-14] MEDS: LIDOCAINE 5% PATCH 2 PATCH TRANSDERM (10:57)
[2021-01-14] MEDS: GABAPENTIN 100 MG CAPSULE PO ×2 (10:57→14:31)
[2021-01-14] MEDS: PIOGLITAZONE HCL 15 MG TAB PO (10:57)
--- NOTE | 2021-01-14 11:19 | WPDNEURORHBP ---
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 Patient presented to [facility] on 01/03/2021 with bilateral lower extremity weakness, radiculopathy from her lower back through the right thigh. MRI of the lumbar spine demonstrated L2-L3 mild canal stenosis, L3-4 and L4-5 bulge with moderate to severe canal stenosis, and left L5-S1 left the centric disc herniation and canal stenosis and lateral recess stenosis. On 01/03/[address] Huey Uribe, patient underwent an L3-4 through L5-S1 posterior lumbar decompression laminectomy. Postoperative course was complicated by acute blood loss anemia, leukocytosis, fever low-grade of 103.2 on the morning of 01/05/2021. UA and chest x-rays were both negative. Wbc's was initially 12 and down trended to 10.9. Postop pain has been complicated after her block wore off. And patient has now been managed with oral analgesic and transdermal lidocaine patch. [facility] until patient is able to ambulate consistently over 150 ft. Patient only walking short distance. Pain is limiting factor. Review of Systems Review of Systems: All systems reviewed & are unremarkable except as noted in HPI and below Functional Status Ambulation Ability Ability to Ambulate 10 Feet: Moderate Assistance X 1 Ambulation Assistive Devices: Walker, Wheeled Exam Narrative: Exam Narrative: Patient resting comfortably in bed. Patient states she has no pain in bed but has difficulty with gait. Head reveals right facial paralysis. External ocular muscles are intact. Speech is dysarthric due to facial paralysis. Heart rate and rhythm is regular. Lungs are clear to auscultation. Abdomen is obese soft nontender. Bilateral upper extremity strength are 4-5, bilateral hip weakness is are noted at 2+at on the left and 3- on the right. Babinski's are upgoing. Deep tendon reflexes are 2/4 to patella tendon. No spasms noted on exam today. Objective Data Vital Signs Vital Signs: Vital Signs - 24 hr 01/13/21 14:00 01/13/21 21:38 01/14/21 06:00 Temperature 36.3 C L 36.7 C 36.7 C Pulse Rate 77 84 75 Respiratory Rate 20 16 16 Blood Pressure 122/55 L 100/78 134/64 Pulse Oximetry 95 100 98 Intake/Output Intake/Output: Intake & Output 01/11/21 01/12/21 01/13/21 01/14/21 23:59 23:59 23:59 23:59 Intake Total 810 600 720 240 Balance 810 600 720 240 Meds/Results Medications: Active Medications Generic Name Dose Route Start Last Admin Trade Name Freq PRN Reason Stop Dose Admin Hydrocodone Bitart/Acetaminophen 1 tab 01/08/21 19:31 01/12/21 20:18 Hydrocodone/Acetaminophen (*Crx) 5-325 Mg Tablet PO 1 tab Q4H PRN Administration Pain (Scale Score 4-6) Hydrocodone Bitart/Acetaminophen 2 tab 01/08/21 19:31 01/13/21 21:39 Hydrocodone/Acetaminophen (*Crx) 5-325 Mg Tablet PO 2 tab Q4H PRN Administration Pain (Scale Score 7-10) Hydrocodone Bitart/Acetaminophen 2 tab 01/14/21 12:00 Hydrocodone/Acetaminophen (*Crx) 5-325 Mg Tablet PO BID@0700,1200 SAMUEL Citalopram Hydrobromide 40 mg 01/08/21 21:00 01/13/21 21:32 Citalopram Hydrobromide 20 Mg Tablet PO 40 mg HS SAMUEL Administration Dextrose 12.5 gm 01/08/21 17:37 Dextrose 50% 25 Gm/50 Ml Syringe IV PUSH PRN PRN Hypoglycemia Protocol Enoxaparin Sodium 40 mg 01/09/21 06:30 01/14/21 06:30 Enoxaparin 40 Mg/0.4 Ml Syringe SUB-Q 40 mg DAILY@0630 SAMUEL Administration Gabapentin 300 mg 01/10/21 21:00 01/13/21 21:32 Gabapentin 300 Mg Capsule PO 300 mg HS SAMUEL Administration Gabapentin 100 mg 01/12/21 09:00 01/14/21 10:57 Gabapen
--- NOTE | 2021-01-14 11:59 | PCNSR ---
On 01/14/21, the student, Isi Pal, provided care and completed Converser documentation on this patient. I have reviewed the student's documentation and agree with the findings. In addition, previous intake goal was being met. Will continue to monitor with same goal.
[2021-01-14] MEDS: HYDROcodone/acetaminophen (*CRX) 5-325 MG TABLET 2 TAB PO (12:23)
[2021-01-14 14:00] VITALS: BP 116/58; PULSE 80; RESP 18; TEMP 36.1; O2SAT 100
[2021-01-14 17:11] LABS: Glucose Point of Care 101 (65-105)
[2021-01-14] MEDS: GABAPENTIN 300 MG CAPSULE PO (20:57)
[2021-01-14] MEDS: CITALOPRAM HYDROBROMIDE 20 MG TABLET 40 MG PO (20:57)
[2021-01-14 22:00] VITALS: BP 125/55; PULSE 78; RESP 16; TEMP 36.3; O2SAT 98
[2021-01-15] MEDS: HYDROcodone/acetaminophen (*CRX) 5-325 MG TABLET 2 TAB PO ×3 (05:32→20:12)
[2021-01-15 06:00] VITALS: BP 125/68; PULSE 77; RESP 16; TEMP 36.8; O2SAT 98
[2021-01-15] MEDS: ENOXAPARIN 40 MG/0.4 ML SYRINGE SUB-Q (06:55)
[2021-01-15 07:13] LABS: Glucose Point of Care 117 (65-105)
[2021-01-15] MEDS: metFORMIN HCL 500 MG TABLET 1000 MG PO ×2 (08:58→17:33)
[2021-01-15] MEDS: LIDOCAINE 5% PATCH 2 PATCH TRANSDERM (08:58)
[2021-01-15] MEDS: methocarbamoL 750 MG TABLET PO ×3 (08:58→17:33)
[2021-01-15] MEDS: GABAPENTIN 100 MG CAPSULE PO ×2 (08:59→13:37)
[2021-01-15] MEDS: PIOGLITAZONE HCL 15 MG TAB PO (08:59)
[2021-01-15 14:00] VITALS: BP 142/77; PULSE 80; RESP 18; TEMP 36.8; O2SAT 99
--- NOTE | 2021-01-15 14:14 | WPDNEURORHBP ---
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 Patient presented to [facility] on 01/03/2021 with bilateral lower extremity weakness, radiculopathy from her lower back through the right thigh. MRI of the lumbar spine demonstrated L2-L3 mild canal stenosis, L3-4 and L4-5 bulge with moderate to severe canal stenosis, and left L5-S1 left the centric disc herniation and canal stenosis and lateral recess stenosis. On 01/03/[address] Huey Uribe, patient underwent an L3-4 through L5-S1 posterior lumbar decompression laminectomy. Postoperative course was complicated by acute blood loss anemia, leukocytosis, fever low-grade of 103.2 on the morning of 01/05/2021. UA and chest x-rays were both negative. Wbc's was initially 12 and down trended to 10.9. Postop pain has been complicated after her block wore off. And patient has now been managed with oral analgesic and transdermal lidocaine patch. Patient will be transferred on Lovenox for DVT prophylaxis until patient is able to ambulate consistently over 150 ft. Patient seen with PT. Patient is walking greater distance and has decreased pain. Review of Systems Review of Systems: All systems reviewed & are unremarkable except as noted in HPI and below Functional Status Ambulation Ability Ability to Ambulate 10 Feet: Contact Guard Ability to Ambulate 50 Feet With 2 Turns: Contact Guard Ability to Ambulate 150 Feet: Contact Guard Ambulation Assistive Devices: Walker, Wheeled Exam Narrative: Exam Narrative: Head reveals right facial paralysis. External ocular muscles are intact. Speech is dysarthric due to facial paralysis. Heart rate and rhythm is regular. Lungs are clear to auscultation. Abdomen is obese soft nontender. Bilateral upper extremity strength are 4-5, bilateral hip weakness is are noted at 3/5 Babinski's are upgoing. Deep tendon reflexes are 2/4 to patella tendon. No spasms noted on exam today. Objective Data Vital Signs Vital Signs: Vital Signs - 24 hr 01/14/21 22:00 01/15/21 06:00 Temperature 36.3 C L 36.8 C Pulse Rate 78 77 Respiratory Rate 16 16 Blood Pressure 125/55 L 125/68 Pulse Oximetry 98 98 Intake/Output Intake/Output: Intake & Output 01/12/21 01/13/21 01/14/21 01/15/21 23:59 23:59 23:59 23:59 Intake Total 600 720 840 840 Balance 600 720 840 840 Meds/Results Medications: Active Medications Generic Name Dose Route Start Last Admin Trade Name Freq PRN Reason Stop Dose Admin Hydrocodone Bitart/Acetaminophen 1 tab 01/08/21 19:31 01/14/21 21:05 Hydrocodone/Acetaminophen (*Crx) 5-325 Mg Tablet PO 1 tab Q4H PRN Administration Pain (Scale Score 4-6) Hydrocodone Bitart/Acetaminophen 2 tab 01/08/21 19:31 01/13/21 21:39 Hydrocodone/Acetaminophen (*Crx) 5-325 Mg Tablet PO 2 tab Q4H PRN Administration Pain (Scale Score 7-10) Hydrocodone Bitart/Acetaminophen 2 tab 01/14/21 12:00 01/15/21 11:07 Hydrocodone/Acetaminophen (*Crx) 5-325 Mg Tablet PO 2 tab BID@0700,1200 SAMUEL Administration Citalopram Hydrobromide 40 mg 01/08/21 21:00 01/14/21 20:57 Citalopram Hydrobromide 20 Mg Tablet PO 40 mg HS SAMUEL Administration Dextrose 12.5 gm 01/08/21 17:37 Dextrose 50% 25 Gm/50 Ml Syringe IV PUSH PRN PRN Hypoglycemia Protocol Enoxaparin Sodium 40 mg 01/09/21 06:30 01/15/21 06:55 Enoxaparin 40 Mg/0.4 Ml Syringe SUB-Q 40 mg DAILY@0630 SAMUEL Administration Gabapentin 300 mg 01/10/21 21:00 01/14/21 20:57 Gabapentin 300 Mg Capsule PO 300 mg HS SAMUEL Administration Gabapentin 100 mg 01/12/21 09:00 01/15/21 13:37 Gabapentin 100 Mg Capsule PO 100 mg
[2021-01-15 17:07] LABS: Glucose Point of Care 120 (65-105)
[2021-01-15] MEDS: CITALOPRAM HYDROBROMIDE 20 MG TABLET 40 MG PO (20:12)
[2021-01-15] MEDS: GABAPENTIN 300 MG CAPSULE PO (20:12)
[2021-01-16 05:43] LABS: Basophils Absolute Auto 0.1 K/mm3 (0.0-0.1); Basophils Percent Auto 0.6 % (0.2-1.2); Eosinophils Absolute Auto 0.5 K/mm3 (0-0.3); Eosinophils Percent Auto 3.5 % (0-4.4); Hematocrit 28.9 % (37.0-47.0); Hemoglobin 9.1 g/dL (12.0-15.0); Immature Granulocyte Absolute 0.11 K/mm3 (0.00-0.031); Immature Granulocyte Percent A 0.9 % (0-0.5); Lymphocytes Absolute Auto 2.55 K/mm3 (0.9-3.2); Lymphocytes Percent Auto 20.1 % (18.3-44.2); Mean Corpuscular HGB Conc 31.5 g/dl (32-36); Mean Corpuscular Hemoglobin 27.7 pg (26-34); Mean Corpuscular Volume 88.1 fl (80-100); Mean Platelet Volume 9.6 fl (7.4-10.4); Monocytes Absolute Auto 0.7 K/mm3 (0.1-0.6); Monocytes Percent Auto 5.4 % (2.6-8.5); Neutrophils Absolute Auto 8.8 K/mm3 (1.3-6.7); Neutrophils Percent Auto 69.5 % (45.5-73.1); Platelet Count Result 809 k/mm3 (150-375); Red Blood Count 3.28 M/mm3 (4.2-5.4); Red Cell Distribution Width 13.8 % (11.5-14.5); White Blood Count 12.7 K/mm3 (4.5-10.0)
[2021-01-16 05:44] LABS: Alanine Aminotransferase 26 U/L (4-35); Albumin Level 3.9 g/dL (3.5-5.1); Alkaline Phosphatase 144 U/L (38-126); Anion Gap 7 mmol/L (8-16); Aspartate Amino Transferase 33 U/L (14-36); Bilirubin,Total 0.2 mg/dL (0.2-1.3); Blood Urea Nitrogen 21 mg/dL (7-17); Calcium 9.3 mg/dL (8.4-10.2); Carbon Dioxide 28 mmol/L (22-30); Chloride 102 mmol/L (98-107); Estimated Glomerular Filt Rate 53; Glucose 92 mg/dL (65-105); Potassium 4.1 mmol/L (3.4-5.0); Sodium 137 mmol/L (137-145)
[2021-01-16 06:00] VITALS: BP 130/59; PULSE 68; RESP 20; TEMP 36.2; O2SAT 98
[2021-01-16] MEDS: HYDROcodone/acetaminophen (*CRX) 7.5-325 MG TABLET 1 TAB PO ×2 (06:39→12:13)
[2021-01-16] MEDS: ENOXAPARIN 40 MG/0.4 ML SYRINGE SUB-Q (06:39)
[2021-01-16 07:16] LABS: Glucose Point of Care 115 (65-105)
[2021-01-16] MEDS: metFORMIN HCL 500 MG TABLET 1000 MG PO ×2 (08:39→17:01)
[2021-01-16] MEDS: PIOGLITAZONE HCL 15 MG TAB PO (08:39)
[2021-01-16] MEDS: LIDOCAINE 5% PATCH 2 PATCH TRANSDERM (08:39)
[2021-01-16] MEDS: GABAPENTIN 100 MG CAPSULE PO ×2 (08:39→14:40)
[2021-01-16] MEDS: methocarbamoL 750 MG TABLET PO (08:40)
--- NOTE | 2021-01-16 11:43 | WPDNEURORHBP ---
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 Patient presented to [facility] on 01/03/2021 with bilateral lower extremity weakness, radiculopathy from her lower back through the right thigh. MRI of the lumbar spine demonstrated L2-L3 mild canal stenosis, L3-4 and L4-5 bulge with moderate to severe canal stenosis, and left L5-S1 left the centric disc herniation and canal stenosis and lateral recess stenosis. On 01/03/[address] Huey Uribe, patient underwent an L3-4 through L5-S1 posterior lumbar decompression laminectomy. Postoperative course was complicated by acute blood loss anemia, leukocytosis, fever low-grade of 103.2 on the morning of 01/05/2021. UA and chest x-rays were both negative. Wbc's was initially 12 and down trended to 10.9. Postop pain has been complicated after her block wore off. And patient has now been managed with oral analgesic and transdermal lidocaine patch. Patient will be transferred on Lovenox for DVT prophylaxis until patient is able to ambulate consistently over 150 ft. Patient found incontinent of urine and had explosive diarrhea. Patient denies abdominal pain. Patient voices no other complaints. . Review of Systems Review of Systems: All systems reviewed & are unremarkable except as noted in HPI and below Functional Status Ambulation Ability Ability to Ambulate 10 Feet: Contact Guard Ability to Ambulate 50 Feet With 2 Turns: Contact Guard Ability to Ambulate 150 Feet: Contact Guard Ambulation Assistive Devices: Walker, Wheeled Exam Narrative: Exam Narrative: Head reveals right facial paralysis. External ocular muscles are intact. Speech is dysarthric due to facial paralysis. Heart rate and rhythm is regular. Lungs are clear to auscultation. Abdomen is obese soft nontender normal active bowel sounds.. Bilateral upper extremity strength are 4-5, bilateral hip weakness is are noted at 3/5 Babinski's are upgoing. Deep tendon reflexes are 2/4 to patella tendon. No spasms noted on exam today. Objective Data Vital Signs Vital Signs: Vital Signs - 24 hr 01/15/21 14:00 01/16/21 06:00 Temperature 36.8 C 36.2 C L Pulse Rate 80 68 Respiratory Rate 18 20 Blood Pressure 142/77 H 130/59 L Pulse Oximetry 99 98 Intake/Output Intake/Output: Intake & Output 01/13/21 01/14/21 01/15/21 01/16/21 23:59 23:59 23:59 23:59 Intake Total 835 499 9653 240 Balance 591 131 0141 240 Meds/Results Medications: Active Medications Generic Name Dose Route Start Last Admin Trade Name Freq PRN Reason Stop Dose Admin Hydrocodone Bitart/Acetaminophen 1 tab 01/08/21 19:31 01/14/21 21:05 Hydrocodone/Acetaminophen (*Crx) 5-325 Mg Tablet PO 1 tab Q4H PRN Administration Pain (Scale Score 4-6) Hydrocodone Bitart/Acetaminophen 2 tab 01/08/21 19:31 01/15/21 20:12 Hydrocodone/Acetaminophen (*Crx) 5-325 Mg Tablet PO 2 tab Q4H PRN Administration Pain (Scale Score 7-10) Hydrocodone Bitart/Acetaminophen 1 tab 01/16/21 07:00 01/16/21 06:39 Hydrocodone/Acetaminophen (*Crx) 7.5-325 Mg Tablet PO 1 tab BID@0700,1200 SAMUEL Administration Citalopram Hydrobromide 40 mg 01/08/21 21:00 01/15/21 20:12 Citalopram Hydrobromide 20 Mg Tablet PO 40 mg HS SAMUEL Administration Dextrose 12.5 gm 01/08/21 17:37 Dextrose 50% 25 Gm/50 Ml Syringe IV PUSH PRN PRN Hypoglycemia Protocol Enoxaparin Sodium 40 mg 01/09/21 06:30 01/16/21 06:39 Enoxaparin 40 Mg/0.4 Ml Syringe SUB-Q 40 mg DAILY@0630 SAMUEL Administration Gabapentin 300 mg 01/10/21 21:00 01/15/21 20:12 Gabapentin 300 Mg Capsule PO 300 mg HS SAMUEL Administration Gabapentin
[2021-01-16] MEDS: methocarbamoL 500 MG TABLET PO ×2 (13:00→17:01)
[2021-01-16 14:00] VITALS: BP 98/48; PULSE 84; RESP 14; TEMP 37.1; O2SAT 95
--- NOTE | 2021-01-16 14:34 | PCDIET ---
Nutrition Follow-Up Complete: Nutrition Diagnosis: Increased protein/kcal needs related to increased demands for healing and recovery as evidenced by recent laminectomy. Nutrition Goal: Patient to consume 75% of meals/supplements or greater. Goal met. Patient has consumed more than 80% of recorded meals, on average, since last review. Continues on diabetic diet. No c/o and feels diarrhea has almost completely resolved. Last recorded weight is 59.7 kg. Recommend obtaining new weight. Bowel Motility: Patient reports small BM this morning. Labs Reviewed: Hgb (9.1), Hct (28.9), Glu (115), BUN (21) Meds Noted: [place], Glucophage, Protonix, Actos Additional Notes: No documented pressure sores. Lower back incision open to air. Will continue to monitor with same goal. Nutrition Monitoring and Evaluation: Follow up in 7 days.
[2021-01-16] MEDS: CITALOPRAM HYDROBROMIDE 20 MG TABLET 40 MG PO (20:23)
[2021-01-16] MEDS: HYDROcodone/acetaminophen (*CRX) 5-325 MG TABLET 1 TAB PO (20:23)
[2021-01-16] MEDS: GABAPENTIN 300 MG CAPSULE PO (20:23)
[2021-01-16 20:30] VITALS: BP 117/50; PULSE 83; RESP 16; TEMP 36.8; O2SAT 100
[2021-01-17 05:30] VITALS: BP 115/58; PULSE 75; RESP 20; TEMP 36.7; O2SAT 100
[2021-01-17] MEDS: ENOXAPARIN 40 MG/0.4 ML SYRINGE SUB-Q (06:39)
[2021-01-17] MEDS: HYDROcodone/acetaminophen (*CRX) 7.5-325 MG TABLET 1 TAB PO ×2 (06:41→12:34)
[2021-01-17 07:09] LABS: Glucose Point of Care 114 (65-105)
[2021-01-17] MEDS: methocarbamoL 500 MG TABLET PO ×3 (08:35→17:08)
[2021-01-17] MEDS: PIOGLITAZONE HCL 15 MG TAB PO (08:35)
[2021-01-17] MEDS: GABAPENTIN 100 MG CAPSULE PO ×2 (08:35→14:11)
[2021-01-17] MEDS: metFORMIN HCL 500 MG TABLET 1000 MG PO ×2 (08:35→17:08)
[2021-01-17] MEDS: LIDOCAINE 5% PATCH 2 PATCH TRANSDERM (08:35)
[2021-01-17 13:32] VITALS: BP 123/69; PULSE 71; RESP 16; TEMP 36.4; O2SAT 99
--- NOTE | 2021-01-17 13:40 | WPDNEURORHBP ---
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 Patient presented to [facility] on 01/03/2021 with bilateral lower extremity weakness, radiculopathy from her lower back through the right thigh. MRI of the lumbar spine demonstrated L2-L3 mild canal stenosis, L3-4 and L4-5 bulge with moderate to severe canal stenosis, and left L5-S1 left the centric disc herniation and canal stenosis and lateral recess stenosis. On 01/03/[address] Huey Uribe, patient underwent an L3-4 through L5-S1 posterior lumbar decompression laminectomy. Postoperative course was complicated by acute blood loss anemia, leukocytosis, fever low-grade of 103.2 on the morning of 01/05/2021. UA and chest x-rays were both negative. Wbc's was initially 12 and down trended to 10.9. Postop pain has been complicated after her block wore off. And patient has now been managed with oral analgesic and transdermal lidocaine patch. Patient will be transferred on Lovenox for DVT prophylaxis until patient is able to ambulate consistently over 150 ft. Patient remains incontinent of bowel with diarrhea. Shier, daughter was called and stated patient had diarrhea at home very often. Patient is doing well with 1.5 Halls and Robaxin 500mg TID. Review of Systems Review of Systems: All systems reviewed & are unremarkable except as noted in HPI and below Functional Status Ambulation Ability Ability to Ambulate 10 Feet: Standby Assistance Ability to Ambulate 50 Feet With 2 Turns: Standby Assistance Ability to Ambulate 150 Feet: Standby Assistance Ambulation Assistive Devices: Walker, Wheeled Exam Narrative: Exam Narrative: Head reveals right facial paralysis. External ocular muscles are intact. Speech is dysarthric due to facial paralysis. Heart rate and rhythm is regular. Lungs are clear to auscultation. Abdomen is obese soft nontender normal active bowel sounds.. Bilateral upper extremity strength are 4-5, bilateral hip weakness is are noted at 3/5 Babinski's are upgoing. Deep tendon reflexes are 2/4 to patella tendon. No spasms noted on exam today. Objective Data Vital Signs Vital Signs: Vital Signs - 24 hr 01/16/21 14:00 01/16/21 20:30 01/17/21 05:30 Temperature 37.1 C 36.8 C 36.7 C Pulse Rate 84 83 75 Respiratory Rate 14 16 20 Blood Pressure 98/48 L 117/50 L 115/58 L Pulse Oximetry 95 100 100 01/17/21 13:32 Temperature 36.4 C L Pulse Rate 71 Respiratory Rate 16 Blood Pressure 123/69 Pulse Oximetry 99 Intake/Output Intake/Output: Intake & Output 01/14/21 01/15/21 01/16/21 01/17/21 23:59 23:59 23:59 23:59 Intake Total 840 1200 720 290 Balance 840 1200 720 290 Meds/Results Medications: Active Medications Generic Name Dose Route Start Last Admin Trade Name Freq PRN Reason Stop Dose Admin Hydrocodone Bitart/Acetaminophen 1 tab 01/08/21 19:31 01/16/21 20:23 Hydrocodone/Acetaminophen (*Crx) 5-325 Mg Tablet PO 1 tab Q4H PRN Administration Pain (Scale Score 4-6) Hydrocodone Bitart/Acetaminophen 2 tab 01/08/21 19:31 01/15/21 20:12 Hydrocodone/Acetaminophen (*Crx) 5-325 Mg Tablet PO 2 tab Q4H PRN Administration Pain (Scale Score 7-10) Hydrocodone Bitart/Acetaminophen 1 tab 01/16/21 07:00 01/17/21 12:34 Hydrocodone/Acetaminophen (*Crx) 7.5-325 Mg Tablet PO 1 tab BID@0700,1200 SAMUEL Administration Citalopram Hydrobromide 40 mg 01/08/21 21:00 01/16/21 20:23 Citalopram Hydrobromide 20 Mg Tablet PO 40 mg HS SAMUEL Administration Dextrose 12.5 gm 01/08/21 17:37 Dextrose 50% 25 Gm/50 Ml Syringe IV PUSH PRN PRN Hypoglycemia Protocol Enoxaparin Sodium 40 mg 01/09/21 06:30
[2021-01-17] MEDS: HYDROcodone/acetaminophen (*CRX) 5-325 MG TABLET 1 TAB PO (18:01)
[2021-01-17 19:50] VITALS: PULSE 71; RESP 16; O2SAT 99
[2021-01-17] MEDS: CITALOPRAM HYDROBROMIDE 20 MG TABLET 40 MG PO (20:02)
[2021-01-17] MEDS: GABAPENTIN 300 MG CAPSULE PO (20:02)
[2021-01-17 21:27] VITALS: BP 129/50; PULSE 80; RESP 16; TEMP 36.3; O2SAT 100
[2021-01-18 05:34] VITALS: BP 120/67; PULSE 73; RESP 16; TEMP 36.4; O2SAT 97
[2021-01-18 06:17] LABS: Glucose Point of Care 109 (65-105)
[2021-01-18] MEDS: ENOXAPARIN 40 MG/0.4 ML SYRINGE SUB-Q (06:30)
[2021-01-18] MEDS: HYDROcodone/acetaminophen (*CRX) 7.5-325 MG TABLET 1 TAB PO ×2 (06:30→12:30)
--- NOTE | 2021-01-18 08:35 | WPDNEURORHBP ---
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 Patient presented to [facility] on 01/03/2021 with bilateral lower extremity weakness, radiculopathy from her lower back through the right thigh. MRI of the lumbar spine demonstrated L2-L3 mild canal stenosis, L3-4 and L4-5 bulge with moderate to severe canal stenosis, and left L5-S1 left the centric disc herniation and canal stenosis and lateral recess stenosis. On 01/03/[address] Huey Uribe, patient underwent an L3-4 through L5-S1 posterior lumbar decompression laminectomy. Postoperative course was complicated by acute blood loss anemia, leukocytosis, fever low-grade of 103.2 on the morning of 01/05/2021. UA and chest x-rays were both negative. Wbc's was initially 12 and down trended to 10.9. Postop pain has been complicated after her block wore off. And patient has now been managed with oral analgesic and transdermal lidocaine patch. Patient will be transferred on Lovenox for DVT prophylaxis until patient is able to ambulate consistently over 150 ft. Patient with no diarrhea today. This appears to be acute/chronic situation. Review of Systems Review of Systems: All systems reviewed & are unremarkable except as noted in HPI and below Functional Status Ambulation Ability Ability to Ambulate 10 Feet: Standby Assistance Ability to Ambulate 50 Feet With 2 Turns: Standby Assistance Ability to Ambulate 150 Feet: Standby Assistance Ambulation Assistive Devices: Walker, Wheeled Exam Narrative: Exam Narrative: Head reveals right facial paralysis. External ocular muscles are intact. Speech is dysarthric due to facial paralysis. Heart rate and rhythm is regular. Lungs are clear to auscultation. Abdomen is obese soft nontender normal active bowel sounds.. Bilateral upper extremity strength are 4-5, bilateral hip weakness is are noted at 3/5 Babinski's are upgoing. Deep tendon reflexes are 2/4 to patella tendon. No spasms noted on exam today. Patient at SBA/Min with stand pivot transfers. Objective Data Vital Signs Vital Signs: Vital Signs - 24 hr 01/17/21 13:32 01/17/21 19:50 01/17/21 21:27 Temperature 36.4 C L 36.3 C L Pulse Rate 71 71 80 Respiratory Rate 16 16 16 Blood Pressure 123/69 129/50 L Pulse Oximetry 99 99 100 01/18/21 05:34 Temperature 36.4 C L Pulse Rate 73 Respiratory Rate 16 Blood Pressure 120/67 Pulse Oximetry 97 Intake/Output Intake/Output: Intake & Output 01/15/21 01/16/21 01/17/21 01/18/21 23:59 23:59 23:59 23:59 Intake Total 1200 720 530 240 Balance 1200 720 530 240 Meds/Results Medications: Active Medications Generic Name Dose Route Start Last Admin Trade Name Freq PRN Reason Stop Dose Admin Acetaminophen 325 mg 01/17/21 14:09 Acetaminophen 325 Mg Tablet PO Q4H PRN Mild Pain (1-3) or Fever Hydrocodone Bitart/Acetaminophen 1 tab 01/08/21 19:31 01/17/21 18:01 Hydrocodone/Acetaminophen (*Crx) 5-325 Mg Tablet PO 1 tab Q4H PRN Administration Pain (Scale Score 4-6) Hydrocodone Bitart/Acetaminophen 2 tab 01/08/21 19:31 01/15/21 20:12 Hydrocodone/Acetaminophen (*Crx) 5-325 Mg Tablet PO 2 tab Q4H PRN Administration Pain (Scale Score 7-10) Hydrocodone Bitart/Acetaminophen 1 tab 01/16/21 07:00 01/18/21 06:30 Hydrocodone/Acetaminophen (*Crx) 7.5-325 Mg Tablet PO 1 tab BID@0700,1200 SAMUEL Administration Citalopram Hydrobromide 40 mg 01/08/21 21:00 01/17/21 20:02 Citalopram Hydrobromide 20 Mg Tablet PO 40 mg HS SAMUEL Administration Dextrose 12.5 gm 01/08/21 17:37 Dextrose 50% 25 Gm/50 Ml Syringe IV PUSH PRN PRN Hypoglycemia Protocol E
[2021-01-18] MEDS: metFORMIN HCL 500 MG TABLET 1000 MG PO ×2 (08:36→16:48)
[2021-01-18] MEDS: methocarbamoL 500 MG TABLET PO ×3 (08:39→16:49)
[2021-01-18] MEDS: GABAPENTIN 100 MG CAPSULE PO ×2 (08:39→14:55)
[2021-01-18] MEDS: LIDOCAINE 5% PATCH 2 PATCH TRANSDERM (08:40)
[2021-01-18] MEDS: PIOGLITAZONE HCL 15 MG TAB PO (08:40)
[2021-01-18 09:06] LABS: Basophils Absolute Auto 0.1 K/mm3 (0.0-0.1); Eosinophils Absolute Auto 0.5 K/mm3 (0-0.3); Eosinophils Percent Auto 4.6 % (0-4.4); Hematocrit 27.3 % (37.0-47.0); Hemoglobin 8.8 g/dL (12.0-15.0); Immature Granulocyte Absolute 0.07 K/mm3 (0.00-0.031); Immature Granulocyte Percent A 0.7 % (0-0.5); Lymphocytes Absolute Auto 1.46 K/mm3 (0.9-3.2); Lymphocytes Percent Auto 14.7 % (18.3-44.2); Mean Corpuscular HGB Conc 32.2 g/dl (32-36); Mean Corpuscular Volume 86.9 fl (80-100); Mean Platelet Volume 9.1 fl (7.4-10.4); Monocytes Absolute Auto 0.6 K/mm3 (0.1-0.6); Monocytes Percent Auto 5.7 % (2.6-8.5); Neutrophils Absolute Auto 7.3 K/mm3 (1.3-6.7); Neutrophils Percent Auto 73.3 % (45.5-73.1); Platelet Count Result 821 k/mm3 (150-375); Red Blood Count 3.14 M/mm3 (4.2-5.4); Red Cell Distribution Width 13.7 % (11.5-14.5); White Blood Count 9.9 K/mm3 (4.5-10.0)
[2021-01-18 14:00] VITALS: BP 115/59; PULSE 78; RESP 18; TEMP 36.6; O2SAT 98
[2021-01-18] MEDS: HYDROcodone/acetaminophen (*CRX) 5-325 MG TABLET 1 TAB PO ×2 (16:49→21:55)
[2021-01-18 20:00] VITALS: PULSE 78; RESP 18; O2SAT 98
[2021-01-18] MEDS: CITALOPRAM HYDROBROMIDE 20 MG TABLET 40 MG PO (20:37)
[2021-01-18] MEDS: GABAPENTIN 300 MG CAPSULE PO (20:37)
[2021-01-18 21:43] VITALS: BP 107/51; PULSE 70; RESP 16; TEMP 36.6; O2SAT 99
[2021-01-19 05:32] VITALS: BP 118/68; PULSE 78; RESP 16; TEMP 37.1; O2SAT 99
[2021-01-19 05:50] LABS: Glucose Point of Care 96 (65-105)
[2021-01-19] MEDS: HYDROcodone/acetaminophen (*CRX) 7.5-325 MG TABLET 1 TAB PO ×2 (06:53→11:35)
[2021-01-19] MEDS: ENOXAPARIN 40 MG/0.4 ML SYRINGE SUB-Q (06:53)
--- NOTE | 2021-01-19 08:19 | WPDNEURORHBP ---
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 Patient presented to [facility] on 01/03/2021 with bilateral lower extremity weakness, radiculopathy from her lower back through the right thigh. MRI of the lumbar spine demonstrated L2-L3 mild canal stenosis, L3-4 and L4-5 bulge with moderate to severe canal stenosis, and left L5-S1 left the centric disc herniation and canal stenosis and lateral recess stenosis. On 01/03/[address] Huey Uribe, patient underwent an L3-4 through L5-S1 posterior lumbar decompression laminectomy. Postoperative course was complicated by acute blood loss anemia, leukocytosis, fever low-grade of 103.2 on the morning of 01/05/2021. UA and chest x-rays were both negative. Wbc's was initially 12 and down trended to 10.9. Postop pain has been complicated after her block wore off. And patient has now been managed with oral analgesic and transdermal lidocaine patch. [facility] until patient is able to ambulate consistently over 150 ft. Patient complains of pain in legs. Patient does not want adjustments to pain meds. Review of Systems Review of Systems: All systems reviewed & are unremarkable except as noted in HPI and below Functional Status Ambulation Ability Ability to Ambulate 10 Feet: Standby Assistance Ability to Ambulate 50 Feet With 2 Turns: Standby Assistance Ability to Ambulate 150 Feet: Standby Assistance Ambulation Assistive Devices: Walker, Wheeled Exam Narrative: Exam Narrative: Head reveals right facial paralysis. External ocular muscles are intact. Speech is dysarthric due to facial paralysis. Heart rate and rhythm is regular. Lungs are clear to auscultation. Abdomen is obese soft nontender normal active bowel sounds.No spasms noted on exam today. Patient at A with stand pivot transfers. Objective Data Vital Signs Vital Signs: Vital Signs - 24 hr 01/18/21 14:00 01/18/21 20:00 01/18/21 21:43 Temperature 36.6 C 36.6 C Pulse Rate 78 78 70 Respiratory Rate 18 18 16 Blood Pressure 115/59 L 107/51 L Pulse Oximetry 98 98 99 01/19/21 05:32 Temperature 37.1 C Pulse Rate 78 Respiratory Rate 16 Blood Pressure 118/68 Pulse Oximetry 99 Intake/Output Intake/Output: Intake & Output 01/16/21 01/17/21 01/18/21 01/19/21 23:59 23:59 23:59 23:59 Intake Total 720 530 720 Balance 720 530 720 Meds/Results Medications: Active Medications Generic Name Dose Route Start Last Admin Trade Name Freq PRN Reason Stop Dose Admin Acetaminophen 325 mg 01/17/21 14:09 Acetaminophen 325 Mg Tablet PO Q4H PRN Mild Pain (1-3) or Fever Hydrocodone Bitart/Acetaminophen 1 tab 01/16/21 07:00 01/19/21 06:53 Hydrocodone/Acetaminophen (*Crx) 7.5-325 Mg Tablet PO 1 tab BID@0700,1200 SAMUEL Administration Hydrocodone Bitart/Acetaminophen 1 tab 01/18/21 21:06 01/18/21 21:55 Hydrocodone/Acetaminophen (*Crx) 5-325 Mg Tablet PO 1 tab Q4H PRN Administration Pain (Scale Score 4-6) Hydrocodone Bitart/Acetaminophen 2 tab 01/18/21 21:06 Hydrocodone/Acetaminophen (*Crx) 5-325 Mg Tablet PO Q4H PRN Pain (Scale Score 7-10) Citalopram Hydrobromide 40 mg 01/08/21 21:00 01/18/21 20:37 Citalopram Hydrobromide 20 Mg Tablet PO 40 mg HS SAMUEL Administration Dextrose 12.5 gm 01/08/21 17:37 Dextrose 50% 25 Gm/50 Ml Syringe IV PUSH PRN PRN Hypoglycemia Protocol Enoxaparin Sodium 40 mg 01/09/21 06:30 01/19/21 06:53 Enoxaparin 40 Mg/0.4 Ml Syringe SUB-Q 40 mg DAILY@0630 SAMUEL Administration Gabapentin 300 mg 01/10/21 21:00 01/18/21 20:37 Gabapentin 300
[2021-01-19] MEDS: LIDOCAINE 5% PATCH 2 PATCH TRANSDERM (08:32)
[2021-01-19] MEDS: methocarbamoL 500 MG TABLET PO ×3 (08:32→17:17)
[2021-01-19] MEDS: GABAPENTIN 100 MG CAPSULE PO ×2 (08:32→14:53)
[2021-01-19] MEDS: metFORMIN HCL 500 MG TABLET 1000 MG PO ×2 (08:32→17:17)
[2021-01-19] MEDS: PIOGLITAZONE HCL 15 MG TAB PO (08:33)
[2021-01-19 14:00] VITALS: BP 102/50; PULSE 65; RESP 18; TEMP 36.3; O2SAT 96
[2021-01-19] MEDS: HYDROcodone/acetaminophen (*CRX) 5-325 MG TABLET 1 TAB PO ×2 (17:17→21:19)
[2021-01-19] MEDS: GABAPENTIN 300 MG CAPSULE PO (20:09)
[2021-01-19] MEDS: CITALOPRAM HYDROBROMIDE 20 MG TABLET 40 MG PO (20:09)
[2021-01-19 21:03] VITALS: BP 124/64; PULSE 70; RESP 18; TEMP 36; O2SAT 99
[2021-01-20 06:00] VITALS: BP 135/56; PULSE 66; RESP 20; TEMP 36.3; O2SAT 100
[2021-01-20] MEDS: HYDROcodone/acetaminophen (*CRX) 7.5-325 MG TABLET 1 TAB PO ×2 (06:35→11:53)
[2021-01-20] MEDS: ENOXAPARIN 40 MG/0.4 ML SYRINGE SUB-Q (06:37)
[2021-01-20 06:43] LABS: Glucose Point of Care 107 (65-105)
[2021-01-20] MEDS: GABAPENTIN 100 MG CAPSULE PO (08:37)
[2021-01-20] MEDS: LIDOCAINE 5% PATCH 2 PATCH TRANSDERM (08:37)
[2021-01-20] MEDS: metFORMIN HCL 500 MG TABLET 1000 MG PO ×2 (08:38→17:43)
[2021-01-20] MEDS: PIOGLITAZONE HCL 15 MG TAB PO (08:38)
[2021-01-20] MEDS: methocarbamoL 500 MG TABLET PO ×3 (08:38→17:43)
--- NOTE | 2021-01-20 08:56 | WPDNEURORHBP ---
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 Patient presented to [facility] on 01/03/2021 with bilateral lower extremity weakness, radiculopathy from her lower back through the right thigh. MRI of the lumbar spine demonstrated L2-L3 mild canal stenosis, L3-4 and L4-5 bulge with moderate to severe canal stenosis, and left L5-S1 left the centric disc herniation and canal stenosis and lateral recess stenosis. On 01/03/[address] Huey Uribe, patient underwent an L3-4 through L5-S1 posterior lumbar decompression laminectomy. Postoperative course was complicated by acute blood loss anemia, leukocytosis, fever low-grade of 103.2 on the morning of 01/05/2021. UA and chest x-rays were both negative. Wbc's was initially 12 and down trended to 10.9. Postop pain has been complicated after her block wore off. And patient has now been managed with oral analgesic and transdermal lidocaine patch. Patient will be transferred on Lovenox for DVT prophylaxis until patient is able to ambulate consistently over 150 ft. Patient complains of shooting/burning pain to left hip. Patient does not want adjustments to pain meds to be lowered. Patient receptive to increasing Neurontin. Review of Systems Review of Systems: All systems reviewed & are unremarkable except as noted in HPI and below Functional Status Ambulation Ability Ability to Ambulate 10 Feet: Standby Assistance Ability to Ambulate 50 Feet With 2 Turns: Standby Assistance Ability to Ambulate 150 Feet: Standby Assistance Ambulation Assistive Devices: Walker, Wheeled Exam Narrative: Exam Narrative: Head reveals right facial paralysis. External ocular muscles are intact. Speech is dysarthric due to facial paralysis. Heart rate and rhythm is regular. Lungs are clear to auscultation. Abdomen is obese soft nontender normal active bowel sounds.No spasms noted on exam today. Patient at SBA with stand pivot transfers. Endurance is good. Objective Data Vital Signs Vital Signs: Vital Signs - 24 hr 01/19/21 14:00 01/19/21 21:03 01/20/21 06:00 Temperature 36.3 C L 36.0 C L 36.3 C L Pulse Rate 65 70 66 Respiratory Rate 18 18 20 Blood Pressure 102/50 L 124/64 135/56 L Pulse Oximetry 96 99 100 Intake/Output Intake/Output: Intake & Output 01/17/21 01/18/21 01/19/21 01/20/21 23:59 23:59 23:59 23:59 Intake Total 530 720 720 Balance 530 720 720 Meds/Results Medications: Active Medications Generic Name Dose Route Start Last Admin Trade Name Freq PRN Reason Stop Dose Admin Acetaminophen 325 mg 01/17/21 14:09 Acetaminophen 325 Mg Tablet PO Q4H PRN Mild Pain (1-3) or Fever Hydrocodone Bitart/Acetaminophen 1 tab 01/16/21 07:00 01/20/21 06:35 Hydrocodone/Acetaminophen (*Crx) 7.5-325 Mg Tablet PO 1 tab BID@0700,1200 SAMUEL Administration Hydrocodone Bitart/Acetaminophen 1 tab 01/18/21 21:06 01/19/21 21:19 Hydrocodone/Acetaminophen (*Crx) 5-325 Mg Tablet PO 1 tab Q4H PRN Administration Pain (Scale Score 4-6) Hydrocodone Bitart/Acetaminophen 2 tab 01/18/21 21:06 Hydrocodone/Acetaminophen (*Crx) 5-325 Mg Tablet PO Q4H PRN Pain (Scale Score 7-10) Citalopram Hydrobromide 40 mg 01/08/21 21:00 01/19/21 20:09 Citalopram Hydrobromide 20 Mg Tablet PO 40 mg HS SAMUEL Administration Dextrose 12.5 gm 01/08/21 17:37 Dextrose 50% 25 Gm/50 Ml Syringe IV PUSH PRN PRN Hypoglycemia Protocol Enoxaparin Sodium 40 mg 01/09/21 06:30 01/20/21 06:37 Enoxaparin 40 Mg/0.4 Ml Syringe SUB-Q 40 mg DAILY@0630 SAMUEL Administration Gabapentin 300 mg 01/10/21 21:00 01/19/21 20:09 Gabapentin 300
[2021-01-20] MEDS: GABAPENTIN 100 MG CAPSULE 200 MG PO (13:11)
[2021-01-20 14:00] VITALS: BP 104/51; PULSE 84; RESP 16; TEMP 36.2; O2SAT 98
[2021-01-20] MEDS: HYDROcodone/acetaminophen (*CRX) 5-325 MG TABLET 1 TAB PO ×2 (17:48→22:03)
[2021-01-20] MEDS: GABAPENTIN 300 MG CAPSULE PO (20:24)
[2021-01-20] MEDS: CITALOPRAM HYDROBROMIDE 20 MG TABLET 40 MG PO (20:24)
[2021-01-20 21:32] VITALS: BP 110/53; PULSE 73; RESP 16; TEMP 36.2; O2SAT 100
[2021-01-21] MEDS: HYDROcodone/acetaminophen (*CRX) 5-325 MG TABLET 2 TAB PO (05:20)
[2021-01-21 05:44] VITALS: BP 150/70; PULSE 70; RESP 16; TEMP 36.3; O2SAT 99
[2021-01-21] MEDS: ENOXAPARIN 40 MG/0.4 ML SYRINGE SUB-Q (05:56)
[2021-01-21 06:48] LABS: Glucose Point of Care 109 (65-105)
[2021-01-21] MEDS: methocarbamoL 500 MG TABLET PO ×3 (09:32→17:35)
[2021-01-21] MEDS: metFORMIN HCL 500 MG TABLET 1000 MG PO ×2 (09:32→17:35)
[2021-01-21] MEDS: PIOGLITAZONE HCL 15 MG TAB PO (09:33)
[2021-01-21] MEDS: GABAPENTIN 100 MG CAPSULE 200 MG PO ×2 (09:33→15:22)
[2021-01-21] MEDS: LIDOCAINE 5% PATCH 2 PATCH TRANSDERM (10:50)
[2021-01-21] MEDS: HYDROcodone/acetaminophen (*CRX) 7.5-325 MG TABLET 1 TAB PO (12:34)
--- NOTE | 2021-01-21 13:12 | WPDNEURORHBP ---
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 Patient presented to [facility] on 01/03/2021 with bilateral lower extremity weakness, radiculopathy from her lower back through the right thigh. MRI of the lumbar spine demonstrated L2-L3 mild canal stenosis, L3-4 and L4-5 bulge with moderate to severe canal stenosis, and left L5-S1 left the centric disc herniation and canal stenosis and lateral recess stenosis. On 01/03/[address] Huey Uribe, patient underwent an L3-4 through L5-S1 posterior lumbar decompression laminectomy. Postoperative course was complicated by acute blood loss anemia, leukocytosis, fever low-grade of 103.2 on the morning of 01/05/2021. UA and chest x-rays were both negative. Wbc's was initially 12 and down trended to 10.9. Postop pain has been complicated after her block wore off. And patient has now been managed with oral analgesic and transdermal lidocaine patch. Patient will be transferred on Lovenox for DVT prophylaxis until patient is able to ambulate consistently over 150 ft. Patient complains of ongoing hip pain. Patient denies problems with increased dose of Neurontin. Review of Systems Review of Systems: All systems reviewed & are unremarkable except as noted in HPI and below Functional Status Ambulation Ability Ability to Ambulate 10 Feet: Independent Ability to Ambulate 50 Feet With 2 Turns: Standby Assistance Ability to Ambulate 150 Feet: Standby Assistance Ambulation Assistive Devices: Walker, Wheeled Transfers Ability Ability to Transfer In/Out of Chair: Independent Exam Narrative: Exam Narrative: Head reveals right facial paralysis. External ocular muscles are intact. Speech is dysarthric due to facial paralysis. Heart rate and rhythm is regular. Lungs are clear to auscultation. Abdomen is obese soft nontender normal active bowel sounds.No spasms noted on exam today. Patient see walking with walker at increased pace. Patient reminded to decrease speed. Endurance is good. Objective Data Vital Signs Vital Signs: Vital Signs - 24 hr 01/20/21 14:00 01/20/21 21:32 01/21/21 05:44 Temperature 36.2 C L 36.2 C L 36.3 C L Pulse Rate 84 73 70 Respiratory Rate 16 16 16 Blood Pressure 104/51 L 110/53 L 150/70 H Pulse Oximetry 98 100 99 Intake/Output Intake/Output: Intake & Output 01/18/21 01/19/21 01/20/21 01/21/21 23:59 23:59 23:59 23:59 Intake Total 720 720 600 240 Balance 720 720 600 240 Meds/Results Medications: Active Medications Generic Name Dose Route Start Last Admin Trade Name Freq PRN Reason Stop Dose Admin Acetaminophen 325 mg 01/17/21 14:09 Acetaminophen 325 Mg Tablet PO Q4H PRN Mild Pain (1-3) or Fever Hydrocodone Bitart/Acetaminophen 1 tab 01/16/21 07:00 01/21/21 12:34 Hydrocodone/Acetaminophen (*Crx) 7.5-325 Mg Tablet PO 1 tab BID@0700,1200 SMAUEL Administration Hydrocodone Bitart/Acetaminophen 1 tab 01/18/21 21:06 01/20/21 22:03 Hydrocodone/Acetaminophen (*Crx) 5-325 Mg Tablet PO 1 tab Q4H PRN Administration Pain (Scale Score 4-6) Hydrocodone Bitart/Acetaminophen 2 tab 01/18/21 21:06 01/21/21 05:20 Hydrocodone/Acetaminophen (*Crx) 5-325 Mg Tablet PO 2 tab Q4H PRN Administration Pain (Scale Score 7-10) Citalopram Hydrobromide 40 mg 01/08/21 21:00 01/20/21 20:24 Citalopram Hydrobromide 20 Mg Tablet PO 40 mg HS SAMUEL Administration Dextrose 12.5 gm 01/08/21 17:37 Dextrose 50% 25 Gm/50 Ml Syringe IV PUSH PRN PRN Hypoglycemia Protocol Gabapentin 300 mg 01/10/21 21:00 01/20/21 20:24 Gabapentin 300 Mg Capsule PO 300 mg HS SAMUEL Administration Gabap
[2021-01-21 14:00] VITALS: BP 122/54; PULSE 78; RESP 16; TEMP 36.6; O2SAT 100
[2021-01-21] MEDS: HYDROcodone/acetaminophen (*CRX) 5-325 MG TABLET 1 TAB PO ×2 (17:39→22:00)
[2021-01-21] MEDS: CITALOPRAM HYDROBROMIDE 20 MG TABLET 40 MG PO (20:48)
[2021-01-21] MEDS: GABAPENTIN 300 MG CAPSULE PO (20:48)
[2021-01-21 21:53] VITALS: BP 107/56; PULSE 71; RESP 18; TEMP 36.1; O2SAT 98
[2021-01-22 06:00] VITALS: BP 132/63; PULSE 80; RESP 16; TEMP 36.6; O2SAT 100
[2021-01-22] MEDS: HYDROcodone/acetaminophen (*CRX) 7.5-325 MG TABLET 1 TAB PO ×2 (06:35→12:25)
[2021-01-22 06:59] LABS: Glucose Point of Care 99 (65-105)
[2021-01-22] MEDS: LIDOCAINE 5% PATCH 2 PATCH TRANSDERM (09:03)
[2021-01-22] MEDS: metFORMIN HCL 500 MG TABLET 1000 MG PO ×2 (09:03→17:31)
[2021-01-22] MEDS: methocarbamoL 500 MG TABLET PO ×3 (09:03→17:31)
[2021-01-22] MEDS: GABAPENTIN 100 MG CAPSULE 200 MG PO ×2 (09:04→14:02)
[2021-01-22] MEDS: PIOGLITAZONE HCL 15 MG TAB PO (09:05)
--- NOTE | 2021-01-22 10:50 | PCNFU ---
Nutrition Follow-Up Complete: Increased protein/kcal needs related to increased demands for healing and recovery as evidenced by recent laminectomy. Goal: Patient to consume 75% of meals/supplements or greater. Goal has been achieved. Will continue to meet goal. Pt current nutrition is Diabetic Carbohydrate Consistent Diet. Receiving Banatrol Plus. Last recorded weight is 59.7 kg. Bowel Motility: Last 01/20 Labs Reviewed: Hgb 8.8, Hct 27.3, POC Capillary Glucose 99 Meds Noted: Tylenol PRN, Hydrocodone Bitart/Acetaminophen, Celexa, Dextrose PRN, Gabapentin, Glucagon PRN, Glucose-15 PRN, Lidoderm, Metformin, Robaxin, Protonix, Actos. Additional Notes: Nutrition follow up. 70 to 100% of meals being consumed. Patient reports not having an appetite but she eats anyway. Follow up in 7 days.
[2021-01-22 14:00] VITALS: BP 124/60; PULSE 99; RESP 18; TEMP 36.1; O2SAT 99
--- NOTE | 2021-01-22 15:35 | WPDNEURORHBP ---
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 Patient presented to [facility] on 01/03/2021 with bilateral lower extremity weakness, radiculopathy from her lower back through the right thigh. MRI of the lumbar spine demonstrated L2-L3 mild canal stenosis, L3-4 and L4-5 bulge with moderate to severe canal stenosis, and left L5-S1 left the centric disc herniation and canal stenosis and lateral recess stenosis. On 01/03/[address] Huey Uribe, patient underwent an L3-4 through L5-S1 posterior lumbar decompression laminectomy. Postoperative course was complicated by acute blood loss anemia, leukocytosis, fever low-grade of 103.2 on the morning of 01/05/2021. UA and chest x-rays were both negative. Wbc's was initially 12 and down trended to 10.9. Postop pain has been complicated after her block wore off. And patient has now been managed with oral analgesic and transdermal lidocaine patch. Patient will be transferred on Lovenox for DVT prophylaxis until patient is able to ambulate consistently over 150 ft. Patient complains of ongoing hip pain. Patient denies problems with increased dose of Neurontin.Discharge meds reviewed with patient. Review of Systems Review of Systems: All systems reviewed & are unremarkable except as noted in HPI and below Functional Status Ambulation Ability Ability to Ambulate 10 Feet: Independent Ability to Ambulate 50 Feet With 2 Turns: Independent Ability to Ambulate 150 Feet: Independent Ambulation Assistive Devices: Walker, Wheeled Transfers Ability Ability to Transfer In/Out of Chair: Standby Assistance Exam Narrative: Exam Narrative: Head reveals right facial paralysis. External ocular muscles are intact. Speech is dysarthric due to facial paralysis. Heart rate and rhythm is regular. Lungs are clear to auscultation. Abdomen is obese soft nontender normal active bowel sounds.No spasms noted on exam today. Patient resting comfortably in bed. Endurance is good. Objective Data Vital Signs Vital Signs: Vital Signs - 24 hr 01/21/21 21:53 01/22/21 06:00 01/22/21 14:00 Temperature 36.1 C L 36.6 C 36.1 C L Pulse Rate 71 80 99 Respiratory Rate 18 16 18 Blood Pressure 107/56 L 132/63 124/60 Pulse Oximetry 98 100 99 Intake/Output Intake/Output: Intake & Output 01/19/21 01/20/21 01/21/21 01/22/21 23:59 23:59 23:59 23:59 Intake Total 720 600 600 480 Balance 720 600 600 480 Meds/Results Medications: Active Medications Generic Name Dose Route Start Last Admin Trade Name Freq PRN Reason Stop Dose Admin Acetaminophen 325 mg 01/17/21 14:09 Acetaminophen 325 Mg Tablet PO Q4H PRN Mild Pain (1-3) or Fever Hydrocodone Bitart/Acetaminophen 1 tab 01/16/21 07:00 01/22/21 12:25 Hydrocodone/Acetaminophen (*Crx) 7.5-325 Mg Tablet PO 1 tab BID@0700,1200 SAMUEL Administration Hydrocodone Bitart/Acetaminophen 1 tab 01/18/21 21:06 01/21/21 22:00 Hydrocodone/Acetaminophen (*Crx) 5-325 Mg Tablet PO 1 tab Q4H PRN Administration Pain (Scale Score 4-6) Hydrocodone Bitart/Acetaminophen 2 tab 01/18/21 21:06 01/21/21 05:20 Hydrocodone/Acetaminophen (*Crx) 5-325 Mg Tablet PO 2 tab Q4H PRN Administration Pain (Scale Score 7-10) Citalopram Hydrobromide 40 mg 01/08/21 21:00 01/21/21 20:48 Citalopram Hydrobromide 20 Mg Tablet PO 40 mg HS SAMUEL Administration Dextrose 12.5 gm 01/08/21 17:37 Dextrose 50% 25 Gm/50 Ml Syringe IV PUSH PRN PRN Hypoglycemia Protocol Gabapentin 300 mg 01/10/21 21:00 01/21/21 20:48 Gabapentin 300 Mg Capsule PO 300 mg HS SAMUEL Administration Gabapentin 200 mg 01/20/21 14:0
[2021-01-22] MEDS: HYDROcodone/acetaminophen (*CRX) 5-325 MG TABLET 1 TAB PO ×2 (17:35→22:51)
[2021-01-22 20:00] VITALS: PULSE 99; RESP 18; O2SAT 99
[2021-01-22 20:59] LABS: Glucose Point of Care 94 (65-105)
[2021-01-22] MEDS: CITALOPRAM HYDROBROMIDE 20 MG TABLET 40 MG PO (21:00)
[2021-01-22] MEDS: GABAPENTIN 300 MG CAPSULE PO (21:03)
[2021-01-22 22:00] VITALS: BP 103/56; PULSE 76; RESP 18; TEMP 36.5; O2SAT 98
[2021-01-23] MEDS: ACETAMINOPHEN 325 MG TABLET PO (05:15)
[2021-01-23 05:20] LABS: Basophils Absolute Auto 0.1 K/mm3 (0.0-0.1); Basophils Percent Auto 1.2 % (0.2-1.2); Eosinophils Absolute Auto 0.6 K/mm3 (0-0.3); Eosinophils Percent Auto 6.8 % (0-4.4); Hematocrit 25.6 % (37.0-47.0); Hemoglobin 8.2 g/dL (12.0-15.0); Immature Granulocyte Absolute 0.04 K/mm3 (0.00-0.031); Immature Granulocyte Percent A 0.5 % (0-0.5); Lymphocytes Absolute Auto 2.36 K/mm3 (0.9-3.2); Lymphocytes Percent Auto 28.2 % (18.3-44.2); Mean Corpuscular Volume 84.2 fl (80-100); Mean Platelet Volume 9.4 fl (7.4-10.4); Monocytes Absolute Auto 0.8 K/mm3 (0.1-0.6); Neutrophils Absolute Auto 4.6 K/mm3 (1.3-6.7); Neutrophils Percent Auto 54.3 % (45.5-73.1); Platelet Count Result 710 k/mm3 (150-375); Red Blood Count 3.04 M/mm3 (4.2-5.4); Red Cell Distribution Width 13.6 % (11.5-14.5); White Blood Count 8.4 K/mm3 (4.5-10.0)
[2021-01-23 05:42] LABS: Alanine Aminotransferase 11 U/L (4-35); Albumin Level 3.6 g/dL (3.5-5.1); Alkaline Phosphatase 98 U/L (38-126); Anion Gap 4 mmol/L (8-16); Aspartate Amino Transferase 20 U/L (14-36); Bilirubin,Total 0.2 mg/dL (0.2-1.3); Blood Urea Nitrogen 22 mg/dL (7-17); Carbon Dioxide 31 mmol/L (22-30); Chloride 102 mmol/L (98-107); Estimated Glomerular Filt Rate 53; Glucose 92 mg/dL (65-105); Potassium 4.4 mmol/L (3.4-5.0); Sodium 137 mmol/L (137-145)
[2021-01-23 05:49] VITALS: BP 120/57; PULSE 67; RESP 18; TEMP 37.2; O2SAT 99
[2021-01-23 07:03] LABS: Glucose Point of Care 108 (65-105)
[2021-01-23] MEDS: HYDROcodone/acetaminophen (*CRX) 7.5-325 MG TABLET 1 TAB PO ×2 (07:10→12:24)
[2021-01-23] MEDS: methocarbamoL 500 MG TABLET PO ×2 (08:47→12:24)
[2021-01-23] MEDS: GABAPENTIN 100 MG CAPSULE 200 MG PO (08:47)
[2021-01-23] MEDS: LIDOCAINE 5% PATCH 2 PATCH TRANSDERM (08:47)
[2021-01-23] MEDS: metFORMIN HCL 500 MG TABLET 1000 MG PO (08:48)
[2021-01-23] MEDS: PIOGLITAZONE HCL 15 MG TAB PO (08:48)
--- NOTE | 2021-01-23 12:22 | PM.DS ---
DS: Admitting Diagnosis Admitting Diagnosis Admitting Diagnosis: lumbar sacral spinal stenosis with myelopathy and radiculopathy in setting of post-polio status post decompression laminectomy DS: Discharge Diagnosis Discharge Diagnosis (1) Degenerative lumbar spinal stenosis: Code(s): M48.061 - Spinal stenosis, lumbar region without neurogenic claudication Status: Acute Assessment and Plan: s/p surgery and rehab (2) Hx of decompressive lumbar laminectomy: Code(s): Z98.890 - Other specified postprocedural states Status: Acute (3) Diabetes: Code(s): E11.9 - Type 2 diabetes mellitus without complications Status: Acute Assessment and Plan: Actos 15mg daily. Glucophage 1000mg BID. (4) Post-polio syndrome: Code(s): G14 - Postpolio syndrome Status: Acute Assessment and Plan: Monitor (5) Hyperlipidemia: Code(s): E78.5 - Hyperlipidemia, unspecified Status: Acute (6) Radiculopathy due to disorder of intervertebral disc of lumbar spine: Code(s): M51.16 - Intervertebral disc disorders with radiculopathy, lumbar region Status: Acute Assessment and Plan: Neurontin 100 mg BID with 300mg q hs. 01/20/21 increase Neruontin to 200 mg BID with 300 mg qhs (7) Myelopathy: Code(s): G95.9 - Disease of spinal cord, unspecified Status: Acute Assessment and Plan: Post polio with spinal stenosis. (8) Acute postoperative pain: Code(s): G89.18 - Other acute postprocedural pain Status: Acute Assessment and Plan: norco and robaxin one tablet before am and pm therapy. Neurontin 100 mg BID with 300mg hs. 01/14/21 Will increase [place] to 2 tablets before therapies to allow for longer distance in gait and more participation during therapies. 01/15/21 Decrease [place] to 1.5 BID with therapies 01/16/21 Decrease Robaxin to 500mg TID (9) Anemia: Code(s): D64.9 - Anemia, unspecified Status: Acute (10) Diarrhea: Code(s): R19.7 - Diarrhea, unspecified Status: Acute Assessment and Plan: Patient has had on and off again diarrhea. Today large diarrhea was noted. Patient was also incontinent of urine. KUB will be ordered. Blood work revealed elevated white count of 12. 01/18/21 WBC 9.9 No diarrhea. 01/19/21 Patient started on Bannatrol to assist with loose stools. 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 Patient presented to [facility] on 01/03/2021 with bilateral lower extremity weakness, radiculopathy from her lower back through the right thigh. MRI of the lumbar spine demonstrated L2-L3 mild canal stenosis, L3-4 and L4-5 bulge with moderate to severe canal stenosis, and left L5-S1 left the centric disc herniation and canal stenosis and lateral recess stenosis. On 01/03/[address] Huey Uribe, patient underwent an L3-4 through L5-S1 posterior lumbar decompression laminectomy. Postoperative course was complicated by acute blood loss anemia, leukocytosis, fever low-grade of 103.2 on the morning of 01/05/2021. UA and chest x-rays were both negative. Wbc's was initially 12 and down trended to 10.9. Postop pain has been complicated after her block wore off. And patient has now been managed with oral analgesic and transdermal lidocaine patch. Patient will be transferred on Lovenox for DVT prophylaxis until patient is able to ambulate consistently over 150 ft. REHAB HOSPITAL COURSE: Diarrhea: Patient has acute on chronic diarrhea mostly contributing from the use of Glucophage. Patient has been placed on Bannatrol with relatively good results. DM good control on current regime Inc
--- NOTE | 2021-01-25 18:09 | PC.NURSE ---
family called regarding issue with a script from surgeon. Stated that the pharmacy was not able to get ahold of that doctor and family called stating patient had not had any pain medication since discharge and was in a lot of pain. Spoke with Dr Matt who wrote script for patient for a small amount of pain medication to ensure patient could pain medication and updated family to make sure that the surgeons office was contacted regarding original script for direction clarification. script was picked up by family member of patient.
--- NOTE | 2021-01-26 10:21 | PC.NURSE ---
talked with pharmacist this at outside facility apparently the script that was given to patient yesterday for pain did not have a date on it. I told pharmacist that i was sitting here yesterday when other nurse nataliia was talking to Dr. Matt and heard them talking about writing a pain script.
== END 2021-01-23 13:30 | disposition home health service (06) | DRG 561 ==
PROVIDERS: Admitting Provider Physical Medicine & Rehabilitation; PCP Internal Medicine Gastroenterology; Visit Provider Physical Medicine & Rehabilitation
DX: Z47.89 Encounter for other orthopedic aftercare (principal); M48.07 Spinal stenosis, lumbosacral region; R29.810 Facial weakness; D64.9 Anemia, unspecified; E78.5 Hyperlipidemia, unspecified; E11.42 Type 2 diabetes mellitus with diabetic polyneuropathy; G89.29 Other chronic pain; M54.16 Radiculopathy, lumbar region; R32 Unspecified urinary incontinence; R19.7 Diarrhea, unspecified; R29.6 Repeated falls; Z86.12 Personal history of poliomyelitis; Z79.84 Long term (current) use of oral hypoglycemic drugs
CPT/HCPCS: 36415; 74018; 80053; 82565; 82948; 83036; 85025; 85049; 92507; 92523; 92610; 97110; 97116; 97161; 97165; 97530; 97535; 97542; A9270; J1650

== ENCOUNTER 2021-01-24 14:21 | Emergency (ER) | payer MEDICARE, BC, SELFPAY ==
--- NOTE | ~2021-01-24 | XR_ITS ---
EXAMINATION: XR pelvis 1-2V EXAM DATE: 01/24/2021 14:59 INDICATION: Fall, pelvic pain. TECHNIQUE: Pelvis frontal projection(s) obtained and reviewed. There is no prior study for compariso n. FINDINGS: There are no acute pelvic fractures or dislocations identified. There is no subcutaneous g as. The soft tissue is unremarkable. There are no radiopaque foreign bodies. There is mild symmetric bilateral hip primary osteoarthritis. IMPRESSION: No acute osseous findings. Reviewed, dictated and finalized at location B. IMPRESSION: No acute osseous findings.
--- NOTE | ~2021-01-24 | CT_ITS ---
EXAMINATION: CT cervical spine wo con EXAM DATE: 01/24/2021 14:48 INDICATION: Fall. TECHNIQUE: Spiral CT of the cervical spine was performed without contrast. Axial images were reviewe d. Coronal and sagittal reformatted images cervical spine were also reviewed. The dose-length produc t (DLP) for this examination was 175.09 mGy-cm. The exposure was tailored according to patient size (auto mA exposure control), and iterative reconstruction (ASIR) was used as additional dose reduction technique. There is no prior study for comparison. FINDINGS: There is no evidence of acute cervical fracture. The odontoid process is intact. Pre-dens space is normal. Prevertebral soft tissue is normal. There are no soft tissue abnormalities identi fied. There is no disc space widening or traumatic vertebral body subluxation suspected. Moderate t o severe disc disease C5-6 and 6-7, mild to moderate C3-4 4-5. Multiple subluxations which are likely degenerative. Advanced cervical arthropathy and multilevel neural foraminal stenosis. A detailed le gustavo by level evaluation of spondylosis can be added as addendum if requested. IMPRESSION: 1. No acute cervical fracture. 2. Advanced cervical spondylosis. Reviewed, dictated and finalized at location B.
--- NOTE | ~2021-01-24 | CT_ITS ---
EXAMINATION: CT brain wo con DATE: 01/24/2021 14:48 INDICATION: Fall with head injury TECHNIQUE: Computed tomography (CT) of the head was performed without intravenous contrast. Sagittal and coronal reconstructions were performed. The mA was adjusted according to patient size. Iterative reconstruction technique was employed. The dose-length product was 605.33 mGy-cm. COMPARISON: None FINDINGS: No fracture. No acute intracranial hemorrhage, acute infarction or abnormal extra axial fluid collect ion. There is moderate scattered white matter hypoattenuation consistent with chronic small vessel is chemic disease. Symmetric prominence of the sulci and ventricles consistent with mild to moderate age -appropriate diffuse cerebral volume loss. No mass/mass effect. The orbits, paranasal sinuses and mas toid air cells are normal. IMPRESSION: 1. No fracture or acute intracranial process. 2. Age-related changes including mild to moderate diffuse volume loss and moderate scattered white ma tter hypoattenuation consistent with chronic small vessel ischemic disease. Reviewed, dictated and finalized at location A. IMPRESSION: 1. No fracture or acute intracranial process. 2. Age-related changes including mild to moderate diffuse volume loss and moder ate scattered white matter hypoattenuation consistent with chronic small vessel ischemic disease.
--- NOTE | ~2021-01-24 | XR_ITS ---
EXAMINATION: XR lumbar spine 2-3V EXAM DATE: 01/24/2021 14:58 INDICATION: Fall, posterior back surgery. TECHNIQUE: Lumber spine frontal, lateral, lateral L5-S1 projections for interpretation. There is no prior study for comparison. FINDINGS: Probable L3 laminotomy, L4 and L5 laminectomies. There is moderate disc disease L4-5 with gas in the disc space , probably vacuum disc phenomenon. There is about 3 mm mm anterolisthesis L3 on L4 and L4 on L5 without spondylolysis. There are no acute fractures identified. Sacrum, sacroiliac j oints, sacral arcuate lines are intact. Probable small fibroids. Paraspinal soft tissue is unremarkab le. Vertebral body heights are maintained. IMPRESSION: 1. No acute lumbar findings. 2. Posterior surgical changes L3-L5. 3. Moderate disc disease L3-4. Reviewed, dictated and finalized at location B.
[2021-01-24 14:21] VITALS: BP 141/78; PULSE 82; RESP 15; TEMP 37.4; O2SAT 99
--- NOTE | 2021-01-24 14:38 | ED.FALL ---
HPI - Fall General Chief Complaint: Fall Stated Complaint: Fall, Back Pain Time Seen by Provider: 01/24/21 14:25 Source: patient, EMS and RN notes reviewed Mode of arrival: EMS Limitations: no limitations History of Present Illness HPI Narrative: Patient is 80 years old white female status post lower back surgery at [facility] 2 weeks ago, got discharged from our rehab yesterday. Today was going to the bathroom using her walker, lost her coordination and fell sideways, hit the head on the wall in the way down to the floor. Patient denies any other injuries. Patient denies any new complaints different than before or after the surgery. Patient is telling me that she have trouble moving her legs and have lower back pain and leg pain which is not improving after the surgery. Patient could not get her prescription of pain medication yesterday because was told by the pharmacist that the dose is very high Related Data Home Medications Medication Instructions Recorded Confirmed citalopram 40 mg PO HS 04/25/20 01/08/21 metformin 1,000 mg PO BIDWM 04/25/20 01/08/21 pioglitazone [Actos] 15 mg PO DAILY 04/25/20 01/08/21 hydrocodone-acetaminophen 1 tablet PO Q4H PRN 01/08/21 01/08/21 hydrocodone-acetaminophen 2 tablet PO Q4H PRN 01/08/21 01/08/21 methocarbamol 500 mg PO Q12H PRN 01/08/21 01/08/21 pantoprazole 40 mg PO QAM PRN 01/08/21 01/08/21 Allergies Allergy/AdvReac Type Severity Reaction Status Date / Time No Known Allergies Allergy Verified 01/24/21 14:26 Review of Systems Review of Systems: Narrative: CONSTITUTIONAL: Denies fever, chills, or sweats. EYES: Denies visual changes, redness, or discharge. ENT: Denies rhinorrhea, congestion, sore throat, or otalgia. CARDIOVASCULAR: Denies chest pain, palpitations, or edema. RESPIRATORY: Denies cough or dyspnea. GASTROINTESTINAL: Denies abdominal pain, nausea, vomiting, or diarrhea. GENITOURINARY: Denies dysuria or hematuria. SKIN: Denies rash or itching. MUSCULOSKELETAL: Denies back pain, joint pain, or myalgia. NEUROLOGIC: Denies headache, numbness, or weakness. PSYCHIATRIC: Denies anxiety or depression. [facility] Past Medical History Medical History Chronic back pain Degenerative lumbar spinal stenosis Diabetes Hyperlipidemia Myelopathy Post-polio syndrome Radiculopathy due to disorder of intervertebral disc of lumbar spine Surgical History Surgical History History of carpal tunnel surgery of left wrist History of carpal tunnel surgery of right wrist History of right cataract surgery Hx of tonsillectomy Family History Family History Other Cancer Diabetes mellitus Social History Social History Social History: patient lives with her daughter in a one-story home with 5 steps to enter and a basement. The patient reports she ambulates household distances at home without device. Patient also admits to frequent falls. Patient has a 2 wheeled walker, wheelchair, and a straight cane. The patient's daughters home mission worker and there to college age grand children at home that can provide assistance. Patient states that she bathe and dress herself. Daughter performed meal prepping. Smoking status: Never smoker Second hand tobacco smoke exposure: No Alcohol intake: never Substance use: never Substance use type: does not use Spiritual care concerns: No Exam Narrative: Exam Narrative: General appearance: Well-developed, well-nourished Skin: Normal color Head: Normocephalic, nontraumatic Eyes: Clear conjunctiva ENT: Oropharynx normal, ears normal, nose normal Neck: Supple, nontender Chest and respiratory: Airway patent, no respiratory distress, no accessory muscle use Heart: Regular rate/rhythm Abdomen: Soft, nontender, no organomegaly, quiet bowel
[2021-01-24 15:29] VITALS: BP 154/87; PULSE 74; RESP 15; O2SAT 99
--- NOTE | 2021-01-24 16:57 | PC.NURSE ---
patient's daughter reports that they would like to go home tonight. Patient's daugher and patient reports that they feel its all due to medications that they can discontinue themselves. patients daughter also requests pain pills due to a script that has never been filled. air traffic coordinator contacted at this time for follow up.
--- NOTE | 2021-01-24 17:28 | PC.NURSE ---
pt ambulated with walker without difficulty
[2021-01-24] MEDS: LOPERAMIDE HCL 2 MG CAPSULE 4 MG PO (17:49)
[2021-01-24 18:05] VITALS: BP 123/65; PULSE 64; RESP 16; O2SAT 100
== END 2021-01-24 18:09 | disposition home or self-care (01) ==
PROVIDERS: Emergency Provider Emergency Medicine; PCP Internal Medicine Gastroenterology
DX: S09.90XA Unspecified injury of head, initial encounter (principal); E11.9 Type 2 diabetes mellitus without complications; E78.5 Hyperlipidemia, unspecified; G14 Postpolio syndrome; M51.16 Intervertebral disc disorders with radiculopathy, lumbar region; M48.061 Spinal stenosis, lumbar region without neurogenic claudication; Z79.84 Long term (current) use of oral hypoglycemic drugs; Z98.41 Cataract extraction status, right eye; M47.812 Spondylosis without myelopathy or radiculopathy, cervical region; W18.39XA Other fall on same level, initial encounter
CPT/HCPCS: 70450; 72100; 72125; 72170; 99284; A9270

== ENCOUNTER 2021-02-06 14:15 | Outpatient (NON) | payer MEDICARE, BC, SELFPAY ==
[2021-02-06 15:26] LABS: Add Urine Microscopic? YES; Amorphous Sediment Urine Few; Appearance Urine Cloudy (Clear); Bacteria Urine Trace /hpf; Bilirubin Urine Negative (Negative); Blood Urine Negative (Negative); Color Urine Yellow (Yellow); Glucose Urine UA Negative (Negative); Ketones Urine Negative (Negative); Leukocyte Esterase Ur 1+ LEU/UL (Negative); Mucus Urine Few /lpf; Nitrate Urine Negative (Negative); Protein Urine 2+ mg/dL (Negative); Squamous Epithelial Cell Urine Many /hpf (Few); Urobilinogen Urine Negative mg/dL (<2.0)
== END 2021-02-06 14:16 | disposition home or self-care (01) ==
PROVIDERS: PCP Internal Medicine Gastroenterology; Visit Provider Internal Medicine Gastroenterology
DX: N39.0 Urinary tract infection, site not specified (principal)
CPT/HCPCS: 81001; 87086; 87088

== ENCOUNTER 2023-07-27 16:34 | Emergency (ER) | payer MEDICARE, BC, SELFPAY ==
--- NOTE | ~2023-07-27 | CT_ITS ---
EXAMINATION: CT lumbar spine wo con DATE: 07/27/2023 17:38 INDICATION: R low back pain s/p fall . TECHNIQUE: Computed tomography (CT) of the lumbar spine was performed without intravenous contrast. A utomated exposure control and iterative reconstruction technique were employed. The dose-length produ ct was 411.84 mGy-cm. COMPARISON: 01/24/2021. FINDINGS: 5 nonrib-bearing lumbar-type vertebral bodies. Pedicles intact. Stable grade 1 anterolisthe ses at L3-4 and L4-5. Stable grade 1 retrolisthesis at L5-S1. Vertebral body heights preserved. Manny ectomy defects from L3 through L5. Severe degenerative disc disease at L3-4 and L4-5. No severe centr al canal stenosis. Severe bilateral neural foraminal narrowing at L5-S1. Atherosclerotic aortic calci fications. Calcified uterine fibroids. IMPRESSION: No acute fracture or traumatic malalignment in the lumbar spine. Reviewed, dictated and finalized at location K. MECHANIC
--- NOTE | ~2023-07-27 | CT_ITS ---
EXAMINATION: CT brain wo con DATE: 07/27/2023 17:11 INDICATION: Fall with head injury TECHNIQUE: Computed tomography (CT) of the head was performed without intravenous contrast. Sagittal and coronal reconstructions were performed. The mA was adjusted according to patient size. Iterative reconstruction technique was employed. The dose-length product was 605.33 mGy-cm. COMPARISON: head CT dated 01/24/2021 FINDINGS: No fracture. No acute intracranial hemorrhage, acute infarction or abnormal extra axial fluid collect ion. There is moderate scattered white matter hypoattenuation consistent with chronic small vessel is chemic disease. Symmetric prominence of the sulci and ventricles consistent with mild to moderate age -appropriate diffuse cerebral volume loss. No mass/mass effect. Changes of right intraocular lens rep lacement. The orbits, paranasal sinuses and mastoid air cells are normal. IMPRESSION: 1. No fracture or acute intracranial process. 2. Age-related changes including mild to moderate diffuse volume loss and moderate scattered white ma tter hypoattenuation consistent with chronic small vessel ischemic disease. Reviewed, dictated and finalized at location A. LER HEAD IMPRESSION: 1. No fracture or acute intracranial process. 2. Age-related changes including mild to moderate diffuse volume loss and moder ate scattered white matter hypoattenuation consistent with chronic small vessel ischemic disease.
--- NOTE | ~2023-07-27 | CT_ITS ---
EXAMINATION: 1. CT facial & cervical spine wo DATE: 07/27/2023 17:13 INDICATION: Right facial swelling and ecchymoses to the right eye post fall with head injury TECHNIQUE: 1. Computed tomography (CT) of the maxillofacial region and of the cervical spine were performed with out intravenous contrast. Sagittal and coronal reconstructions of both regions were obtained. Automat ed exposure control and iterative reconstruction technique were employed. The dose-length product was 182.56 mGy-cm. COMPARISON: None. FINDINGS: Maxillofacial CT: Bilateral temporomandibular joints are normal alignment. No acute maxillofacial fractures. Specifical ly the nasal bones, zygomatic arches, mandible, pterygoid plates and yanez of the orbits and paranasa l sinuses are all intact. Changes of right intraocular lens replacement. Orbits are otherwise normal. Mild mucosal thickening in the right maxillary sinus. Patient is edentulous aside from the right-yang ed mandibular incisors. Cervical spine CT: Mild cervical levocurvature. 4 mm anterolisthesis C7 on T1, 2 mm anterolisthesis C4 on C5 and T1-2 mi llimeters anterolisthesis C2 on C3 and C3 on C4. Vertebral body heights are normal. No fracture. Melinda re disc height loss with degenerative endplate changes at C5-C6, C6-C7 and T4-T5. Moderate disc heigh t loss at C3-C4, C4-C5 and C7-T1 through T3-T4 and mild at C2-C3. Disc bulges and disc osteophyte com plex resulting in multilevel mild central canal stenosis throughout the cervical spine. Multilevel bi lateral moderate to severe cervical facet and uncovertebral osteoarthritis. This results in moderate neural from stenosis at many levels on both the left and right sides of the cervical spine most promi nent on the left at C3-C4. There is also multilevel bilateral neural foraminal stenosis in the visual ized upper thoracic spine. Mosaic attenuation in the visualized upper lungs likely related to expirat ory phase of imaging. Cervical soft tissues are unremarkable. IMPRESSION: 1. No maxillofacial fractures. 2. Severe cervical spondylosis with no acute osseous abnormality. Reviewed, dictated and finalized at location A. ANALYST
[2023-07-27 16:48] VITALS: BP 158/74; PULSE 71; RESP 18; TEMP 36.5; O2SAT 97
[2023-07-27 17:01] VITALS: BP 157/80; PULSE 68; RESP 15; O2SAT 98
--- NOTE | 2023-07-27 17:04 | ED.FALL ---
HPI - Fall General Chief Complaint: Fall Stated Complaint: Fall this morning Time Seen by Provider: 07/27/23 16:57 Source: patient Mode of arrival: ambulatory Limitations: no limitations History of Present Illness HPI Narrative: Patient is an 83 y/o female, with PMH of polio and post polio syndrome, who presents to the ED with c/o fall. Patient reports she fell this morning. She states she had gotten up out of bed and became slightly dizzy. She went to sit back down on the bed but fell forward, hitting her face and landing on her knees. Patient does not believe she lost consciousness or had a syncopal episode. She remembers the fall. She states she frequently has dizziness due to her postpolio syndrome. She denies feeling dizzy currently or since the fall this morning. Patient complains of pain to the right side of her face. She does also complain of L sided neck pain and right-sided low back pain. She did experiencing epistaxis after the fall which has since resolved. Denies vision changes, N/V, CP, SOB. Patient is not on any blood thinners. Related Data Home Medications Medication Instructions Recorded Confirmed pioglitazone 15 mg tablet (Actos) 15 mg PO DAILY 04/25/20 02/18/23 oxybutynin chloride 5 mg tablet 5 mg PO DAILY 11/06/22 02/18/23 Allergies Allergy/AdvReac Type Severity Reaction Status Date / Time gabapentin AdvReac Mild Exsessive Verified 07/27/23 16:35 Sleepiness Review of Systems Review of Systems: CONSTITUTIONAL: Denies fever, chills, or sweats. EYES: Denies visual changes. CARDIOVASCULAR: Denies chest pain. RESPIRATORY: Denies dyspnea. GASTROINTESTINAL: Denies abdominal pain, nausea, vomiting. MUSCULOSKELETAL: See HPI. NEUROLOGIC: See HPI. All systems reviewed & are unremarkable except as noted in HPI and below PMFSH Past Medical History Medical History Arthritis Candidiasis of skin Cervical spondylosis Chronic back pain Degenerative lumbar spinal stenosis Diabetes Dizziness Encounter to establish care GERD (gastroesophageal reflux disease) Headache History of poliomyelitis Hyperlipidemia Hypothyroid Myelopathy Post-polio syndrome Radiculopathy due to disorder of intervertebral disc of lumbar spine Urinary incontinence Vertigo Vitamin D deficiency Surgical History Surgical History History of back surgery History of carpal tunnel surgery of left wrist History of carpal tunnel surgery of right wrist History of right cataract surgery Hx of tonsillectomy Family History Family History Other Cancer Diabetes mellitus Social History Social History Social History: patient lives with her daughter in a one-story home with 5 steps to enter and a basement. The patient reports she ambulates household distances at home without device. Patient also admits to frequent falls. Patient has a 2 wheeled walker, wheelchair, and a straight cane. The patient's daughters sanitation worker and there to college age grand children at home that can provide assistance. Patient states that she bathe and dress herself. Daughter performed meal prepping. Smoking status: Never smoker Second hand tobacco smoke exposure: No Alcohol intake: never Substance use: never Substance use type: does not use Lack of Transportation: No Lack of Food: Never True Current Housing: I Do Not Have Housing Concerned About Future Housing: No Difficulty Paying Gas/Electric Bills: No Difficulty Paying for Meds: No Currently Unemployed: No Education: High School Diploma/GED Spiritual care concerns: No Exam Narrative: GENERAL: Well appearing, well-nourished, non-toxic, in no acute distress. HEAD: Normocephalic. Mild swelling and bruising noted to
[2023-07-27] MEDS: ACETAMINOPHEN 325 MG TABLET 650 MG PO (17:41)
[2023-07-27 17:43] VITALS: BP 183/71; PULSE 65; RESP 16; O2SAT 100
[2023-07-27 18:12] VITALS: BP 177/77; PULSE 65; RESP 16; O2SAT 97
== END 2023-07-27 18:20 | disposition home or self-care (01) ==
PROVIDERS: Emergency Provider Physician Assistant; PCP Nurse Practitioner Family
DX: S09.90XA Unspecified injury of head, initial encounter (principal); E78.5 Hyperlipidemia, unspecified; E03.9 Hypothyroidism, unspecified; E11.9 Type 2 diabetes mellitus without complications; W06.XXXA Fall from bed, initial encounter
CPT/HCPCS: 70450; 70486; 72125; 72131; 99284; A9270

== ENCOUNTER 2024-01-23 11:38 | Emergency (ER) | payer MEDICARE, BC, SELFPAY ==
--- NOTE | 2024-01-23 11:39 | ED.GENADULT ---
HPI - General Adult General Chief complaint: Skin/Abscess/Foreign Body Stated complaint: Left Leg Rash Time Seen by Provider: 01/23/24 11:50 Source: patient, RN notes reviewed and old records reviewed Mode of arrival: ambulatory Limitations: no limitations History of Present Illness HPI narrative: 83-year-old female presents to the [facility] with complaints of a rash to her left anterior upper leg that started yesterday No treatment prior to arrival Related Data Home Medications Medication Instructions Recorded Confirmed ergocalciferol (vitamin D2) 1,250 1,250 mcg PO DAILY 01/23/24 01/23/24 mcg (50,000 unit) capsule Allergies Allergy/AdvReac Type Severity Reaction Status Date / Time gabapentin AdvReac Mild Exsessive Verified 01/23/24 11:46 Sleepiness Review of Systems Review of Systems: All systems reviewed & are unremarkable except as noted in HPI and below Constitutional: Constitutional: Reports no additional constitutional complaints Eyes: Eyes: Reports no additional eye complaints ENT: Reports system reviewed and no additional complaints, except as documented Cardiovascular: Cardiovascular: Reports no additional cardiovascular complaints, Denies chest pain and Denies dyspnea Respiratory: Respiratory: Reports no additional respiratory complaints, Denies chest congestion, Denies cough and Denies dyspnea Gastrointestinal: Gastrointestinal: Reports no additional gastrointestinal complaints, Denies abdominal pain, Denies nausea and Denies vomiting Musculoskeletal: Musculoskeletal: Reports no additional musculoskeletal complaints Integumentary/Breasts: Skin/Breast: Reports as per HPI Neurologic: Reports system reviewed and no additional complaints, except as documented Psychiatric: Psychiatric: Reports no additional psychiatric complaints Allergic/Immunologic: Allergic/Immunologic: Reports no additional allergic/immunologic complaints [facility] Past Medical History Medical History Anxiety Arthritis Candidiasis of skin Cervical spondylosis Chronic back pain Degenerative lumbar spinal stenosis Depression Diabetes Dizziness Encounter to establish care GERD (gastroesophageal reflux disease) Headache History of poliomyelitis Hyperlipidemia Hypothyroid Myelopathy Post-polio syndrome Radiculopathy due to disorder of intervertebral disc of lumbar spine Urinary incontinence Vertigo Vitamin D deficiency Surgical History Surgical History History of back surgery History of carpal tunnel surgery of left wrist History of carpal tunnel surgery of right wrist History of right cataract surgery Hx of tonsillectomy Family History Family History Other Cancer Diabetes mellitus Social History Social History Social History: patient lives with her daughter in a one-story home with 5 steps to enter and a basement. The patient reports she ambulates household distances at home without device. Patient also admits to frequent falls. Patient has a 2 wheeled walker, wheelchair, and a straight cane. The patient's daughters social work associate and there to college age grand children at home that can provide assistance. Patient states that she bathe and dress herself. Daughter performed meal prepping. Smoking status: Never smoker Second hand tobacco smoke exposure: No Alcohol intake: never Substance use: never Substance use type: does not use Lack of Transportation: No Lack of Food: Never True Current Housing: I Do Not Have Housing Concerned About Future Housing: No Difficulty Paying Gas/Electric Bills: No Difficulty Paying for Meds: No Currently Unemployed: No Education: High School Diploma/GED Spiritual care concerns: No Comments At the time of my signature, I
[2024-01-23 11:51] VITALS: BP 166/86; PULSE 78; RESP 16; TEMP 36.8; O2SAT 98
== END 2024-01-23 12:12 | disposition home or self-care (01) ==
PROVIDERS: Emergency Provider Nurse Practitioner; PCP Nurse Practitioner Family
DX: L03.116 Cellulitis of left lower limb (principal); M47.812 Spondylosis without myelopathy or radiculopathy, cervical region; M47.816 Spondylosis without myelopathy or radiculopathy, lumbar region; E11.9 Type 2 diabetes mellitus without complications; K21.9 Gastro-esophageal reflux disease without esophagitis; E78.5 Hyperlipidemia, unspecified; E03.9 Hypothyroidism, unspecified; E55.9 Vitamin D deficiency, unspecified; M19.90 Unspecified osteoarthritis, unspecified site
CPT/HCPCS: 99213; G0463

== ENCOUNTER 2024-05-28 13:15 | Inpatient (IN) | payer MEDICARE, BC, SELFPAY ==
[2024-05-28] VITALS (20 sets, daily range): BP systolic 126–163; BP diastolic 65–142; PULSE 80–96; RESP 12–22; TEMP 36.2–36.4; O2SAT 93–100; BMI 26.5
--- NOTE | ~2024-05-28 | CT_ITS ---
EXAMINATION: CTA chest PE protocol DATE: 05/28/2024 15:47 INDICATION: Chest pain, cough, upper respiratory infection. Positive d-dimer. Dizziness. TECHNIQUE: Computed tomography angiography (CTA) of the chest was performed with 100 mL Omnipaque-350 intravenous contrast timed to evaluate the pulmonary arteries. Coronal maximum intensity projection 3D-reconstructions were created by the technologist. Automated exposure control and iterative reconst ruction technique were employed. Exam dose: 280.96 mGy-cm total exam DLP. COMPARISON: 05/28/2024 2 view chest FINDINGS: There is diagnostic contrast enhancement of the pulmonary arteries and no evidence of pulmo nary embolism. No thoracic aortic aneurysm or dissection. Aortic and great vessel coronary artery calcifications. No hilar or mediastinal mass lesion or lymphadenopathy. Cardiomegaly. No pericardial or pleural effusion. There is a very large hiatal hernia containing the majority of the stomach. Calcified subcarinal nodes consistent with old granulomatous disease. Normal morphology of the adrenal glands. Spleen there is a fat-containing left foramen of Bochdalek hernia. Mild bilateral lower lobe mild atelectasis. No pulmonary infiltrate or consolidation. Degenerative changes of the lower cervical and thoracic spine. No suspicious osteolytic or osteoblast ic lesions are noted. IMPRESSION: No evidence of pulmonary embolism Large hiatal hernia containing majority of stomach Mild bilateral lower lobe atelectasis Cardiomegaly Reviewed, dictated and finalized at Location A. Reviewed, dictated and finalized at location A.
--- NOTE | ~2024-05-28 | CT_ITS ---
EXAMINATION: CT brain wo con DATE: 05/28/2024 14:42 INDICATION: Numbness, weakness TECHNIQUE: Computed tomography (CT) of the head was performed without intravenous contrast. The mA wa s adjusted according to patient size. Iterative reconstruction technique was employed. Exam dose: 60 5.33 mGy-cm total exam DLP. COMPARISON: 07/27/2023 CT brain FINDINGS: Vertebral and basilar artery calcifications. Carotid siphon arterial calcifications. There is nonspecific diminished attenuation the cerebral white matter, which may be due to chronic sm all vessel ischemic changes. No intracranial mass lesion or hemorrhage or cerebrovascular accident is detected. No midline shift or mass effect. There is moderately prominent central and cortical cerebral and moderate cerebellar atrophy. No subdural or epidural hematoma is detected. Mild echograms of the right maxillary sinus. Patchy soft tissue thickening in the ethmoid air cells b ilaterally. The frontal and sphenoid sinuses and mastoid air cells are unremarkable. No fracture or bone destruction of the cranial vault. IMPRESSION: Central and cortical cerebral and cerebellar atrophy Diminished attenuation of cerebral white matter, likely due to chronic small vessel ischemic changes No acute intracranial finding or significant change since 07/27/2023 Reviewed, dictated and finalized at Location A. Reviewed, dictated and finalized at location A. IMPRESSION: Central and cortical cerebral and cerebellar atrophy Diminished attenuation of cerebral white matter, likely due to chronic small ve ssel ischemic changes No acute intracranial finding or significant change since 07/27/2023
--- NOTE | ~2024-05-28 | XR_ITS ---
XR chest 2V DATE: 05/28/2024 14:20 INDICATION: Weakness TECHNIQUE: AP and lateral views COMPARISON: None FINDINGS: Cardiomegaly. Mitral annulus calcification. Aortic calcification. Large hiatal hernia. Minimal infiltrate or atelectasis is suggested in the left lower lobe. The lungs otherwise appear shania ar. Minimal if any pleural effusion. No pulmonary vascular congestion or pneumothorax. Osteopenia. Degenerative changes of the cervical and thoracic spine. IMPRESSION: Cardiomegaly Aortic atherosclerosis Large hiatal hernia Minimal infiltrate or atelectasis, left lower lobe Reviewed, dictated and finalized at location A.
--- NOTE | 2024-05-28 13:50 | ECG_ITS ---
Test Date: 2024-05-28 14:03:21 Measurements Intervals [place] Rate: 102 P: 63 GA: 187 QRS: -19 QRSD: 94 T: 99 QT: 375 QTc: 489 Interpretive Statements SINUS TACHYCARDIA DELAYED PRECORDIAL R/S TRANSITION INFERIOR INFARCT, AGE INDETERMINATE ST-T WAVE ABNORMALITY IN HIGH LATERAL LEADS- CONSIDER ISCHEMIA BASELINE ARTIFACT- I, II, III, AVR, AVL, AVF, V1-V6 ABNORMAL ECG No previous ECG available for comparison Electronically Signed On 05-28-2024 15:13:45 CDT by Thierno Kendrick D.O.
--- NOTE | 2024-05-28 14:11 | ED.WEAKNESS ---
HPI - Weakness General Chief complaint: Weakness <TROY Hook Last Filed: 05/28/24 19:13> Stated complaint: cold sx's, bowel/bladder incontience <TROY Hook Last Filed: 05/28/24 19:13> Time Seen by Provider: 05/28/24 13:57 <TROY Hook Last Filed: 05/28/24 19:13> Source: patient <TROY Hook Last Filed: 05/28/24 19:13> Mode of arrival: EMS <TROY Hook Last Filed: 05/28/24 19:13> Limitations: no limitations <TROY Hook Last Filed: 05/28/24 19:13> History of Present Illness HPI Narrative: Patient is an 84-year-old female who presents the ED via EMS from home, with report of weakness, cough. Patient reports she has been sick since Wednesday with a persistent cough. She also reports having weakness, dizziness, nausea, diarrhea, subjective fevers, general malaise. Reports having chest and abdominal soreness with coughing. Denies chest pain at rest. Denies shortness of breath. Denies lower extremity pain or swelling, hemoptysis, vomiting. Patient lives with her daughter who has been sick with similar symptoms. <TROY Hook Last Filed: 05/28/24 19:13> Related Data Home medications: Home Medications Medication Instructions Recorded Confirmed acetaminophen 500 mg tablet 500 mg PO DAILY 05/28/24 05/28/24 <TROY Hook Last Filed: 05/28/24 19:13> Allergies/Adverse reactions: Allergies Allergy/AdvReac Type Severity Reaction Status Date / Time gabapentin AdvReac Mild Exsessive Verified 05/28/24 19:49 Sleepiness <TROY Hook Last Filed: 05/28/24 19:13> Review of Systems Review of Systems: All systems reviewed & are unremarkable except as noted in HPI. 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 disc of lumbar spine Type 2 diabetes mellitus Vertigo Vitamin D deficiency <Pina Jc PA-C - Last Filed: 05/28/24 19:13> Surgical History Surgical History: Surgical History History of back surgery History of bilateral carpal tunnel release History of right cataract surgery History of tonsillectomy <Pina Jc PA-C - Last Filed: 05/28/24 19:13> Family History Family History: Family History Other Cancer Diabetes mellitus <Pina Jc PA-C - Last Filed: 05/28/24 19:13> Social History Social History: Social History (Updated 05/28/24 @ 20:29 by Judy Mcadams PA-C) Social History: Surrogate medical decision maker: Judit Lopez, daughter. Code status: Full code. Smoking status: Never smoker Second hand tobacco smoke exposure: No Alcohol intake: never Substance use: never Substance use type: does not use Do You Feel Safe in your Home?: Yes Lack of Transportation: No Lack of Food: Never True Current Housing: I Have Housing Concerned About Future Housing: No Difficulty Paying Gas/Electric Bills: No Difficulty Paying for Meds: No Currently Unemployed: No Education: High School Diploma/GED Difficulty w/ Childcare or Family Care: No Additional living arrangements comments: Lives with daughter in [place]. Spiritual care concerns: No <Pina Jc PA-C - Last F
[2024-05-28] MEDS: MECLIZINE HCL 25 MG TABLET PO (14:46)
[2024-05-28] MEDS: SODIUM CHLORIDE 0.9% IV 1,000 ML 999 ML IV CONT (14:46)
[2024-05-28 15:05] LABS: Basophils Absolute Auto 0.1 K/mm3 (0.0-0.1); Basophils Percent Auto 0.9 % (0.2-1.2); Hematocrit 39.3 % (37.0-47.0); Hemoglobin 12.7 g/dL (12.0-15.0); Immature Granulocyte Absolute 0.06 K/mm3 (0.00-0.031); Immature Granulocyte Percent A 0.5 % (0-0.5); Lymphocytes Absolute Auto 0.92 K/mm3 (0.9-3.2); Lymphocytes Percent Auto 7.7 % (18.3-44.2); Mean Corpuscular HGB Conc 32.3 g/dl (32-36); Mean Corpuscular Hemoglobin 25.6 pg (26-34); Mean Corpuscular Volume 79.2 fl (80-100); Mean Platelet Volume 10.4 fl (7.4-10.4); Monocytes Absolute Auto 0.7 K/mm3 (0.1-0.6); Monocytes Percent Auto 5.7 % (2.6-8.5); Neutrophils Absolute Auto 10.2 K/mm3 (1.3-6.7); Neutrophils Percent Auto 85.2 % (45.5-73.1); Platelet Count Result 328 k/mm3 (150-375); Red Blood Count 4.96 M/mm3 (4.2-5.4); Red Cell Distribution Width 14.5 % (11.5-14.5)
[2024-05-28 15:15] LABS: Prothrombin Time 13.5 Seconds (11.1-14.7)
[2024-05-28 15:16] LABS: Partial Thromboplastin Time 29.3 Seconds (22.3-36.8)
[2024-05-28 15:18] LABS: D Dimer 0.93 ug/mL (<0.48); Lipase 23 U/L (23-300); Magnesium 1.8 mg/dL (1.6-2.3)
[2024-05-28 15:19] LABS: Alanine Aminotransferase 32 U/L (6-35); Albumin Level 4.6 g/dL (3.5-5.1); Alkaline Phosphatase 147 U/L (38-126); Anion Gap 17 mmol/L (4-12); Aspartate Amino Transferase 62 U/L (14-36); Bilirubin,Total 0.8 mg/dL (0.2-1.3); Blood Urea Nitrogen 26 mg/dL (7-17); Carbon Dioxide 25 mmol/L (22-30); Chloride 92 mmol/L (98-107); Estimated Glomerular Filt Rate 39; Glucose 199 mg/dL (65-110); Potassium 3.5 mmol/L (3.4-5.0); Sodium 134 mmol/L (137-145)
[2024-05-28 15:31] LABS: NT Pro B Type Natriuretic Pept 1650 pg/mL (19.9-100); Troponin I 0.014 ng/mL (0.000-0.034)
[2024-05-28 15:41] LABS: Influenza A QL RT-PCR Negative (Negative); Influenza B QL RT-PCR Negative (Negative); RSV RNA, RT-PCR Negative (Negative); SARS-CoV-2 RNA PCR Positive (Negative)
[2024-05-28 16:11] LABS: Add Urine Microscopic? YES; Appearance Urine Cloudy (Clear); Bacteria Urine 4+ /hpf; Bilirubin Urine Negative (Negative); Blood Urine Trace (Negative); Budding Yeast Urine Present /hpf; Color Urine Dark Yellow (Yellow); Glucose Urine UA Negative (Negative); Ketones Urine 1+ mg/dL (Negative); Leukocyte Esterase Ur 1+ LEU/UL (Negative); Need Manual Microscopic Reviewed; Nitrate Urine Positive (Negative); Non Pathogenic Casts >20; Protein Urine 2+ mg/dL (Negative); Specific Grav Ur 1.028 (1.001-1.035); Squamous Epithelial Cell Urine Few /hpf (Few); WBC Urine >100 /hpf (0-3); pH Urine 5.5 (5.0-9.0)
[2024-05-28] MEDS: ACETAMINOPHEN 500 MG TABLET 1000 MG PO (16:25)
--- NOTE | 2024-05-28 18:00 | PM.IMHP ---
H&P: HPI History of Present Illness Date/Time: 05/28/24 18:00 Chief Complaint: Weakness. Narrative: This is a pleasant 84-year-old female with history of polio with bilateral lower extremity involvement, type 2 diabetes mellitus, hyperlipidemia, chronic kidney disease stage 3, anemia, and chronic back and leg pain who presented to the emergency department via EMS from home with weakness. The patient provides the following history. She has not been feeling well for several days with symptoms to include dry cough, poor appetite, occasional nausea, generalized weakness, dizziness with position changes, diarrhea, and urinary incontinence. She lives with her daughter who is also been sick with similar symptoms. She has not had a fever to her knowledge. She denies headache, neck ache, chest pain, pleuritic pain, vomiting, abdominal pain, low back pain, and overt dysuria. In the ED: Vitals on arrival include a temperature of 97.6?, blood pressure 131/65, pulse 89, respiratory rate 20, and an SpO2 of 93% on room air. Labs are significant for WBC count of 12.0, hemoglobin 12.7, MCV 79.2, D-dimer 0.93, sodium 134, chloride 92, BUN 26, creatinine 1.30, glucose 199, AST 62, troponin 0.014. EKG showed sinus tachycardia with ST T-wave abnormalities in the high lateral leads. Chest x-ray showed cardiomegaly with aortic atherosclerosis middle infiltrate or atelectasis in left lower lobe, and large hiatal hernia. Head CT and chest CTA were without acute findings. Urinalysis was nitrate leukocyte esterase positive with greater than 100 WBCs and 4+ bacteria noted on microscopy. She was given meclizine 25 mg p.o., a L normal saline, ceftriaxone 1 gm and she is being admitted in this setting for further treatment. Review of Systems Review of Systems: 12 systems were reviewed and are negative except for as per HPI. 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 Code status: Full code. Smoking status: Never smoker Second hand tobacco smoke exposure: No Alcohol intake: never Substance use: never Substance use type: does not use Do You Feel Safe in your Home?: Yes Lack of Transportation: No Lack of Food: Never True Current Housing: I Have Housing Concerned About Future Housing: No Difficulty Paying Gas/Electric Bills: No Difficulty Paying for Meds: No Currently Unemployed: No Education: High School Diploma/GED Difficulty w/ Childcare or Family Care: No Additional living arrangements comments: Lives with daughter in [place]. Spiritual care concerns: No Meds Home Medications and Allergies Home Medications Medication Instructions Recorded Confirmed Type levothyroxine 25 mcg tablet 25 mcg PO DAILY #90 tabs 01/13/24 05/28/24 Rx amitriptyline 10 mg tablet 10 mg PO QHS #30 tabs 05/03/24 05/28/24 Rx acetaminophen 500 mg tablet 500 mg PO DAILY 05/28/24 05/28/24 History Allergies Allergy/AdvReac Type Severity Reaction Status Date / Time gabapentin AdvReac Mild Exsessive Verified 05/28/24 19:49 Sleepiness
--- NOTE | 2024-05-28 18:01 | ECG_ITS ---
Test Date: 2024-05-28 18:07:11 Measurements Intervals [place] Rate: 80 P: 47 TN: 183 QRS: -23 QRSD: 89 T: 208 QT: 387 QTc: 449 Interpretive Statements SINUS RHYTHM DELAYED PRECORDIAL R/S TRANSITION CONSIDER INFERIOR INFARCT, AGE INDETERMINATE ST DEVIATION AND MODERATE T-WAVE ABNORMALITY, CONSIDER LATERAL ISCHEMIA BASELINE ARTIFACT- I, II, AVR, AVL, AVF, V3-V4 ABNORMAL ECG Compared to ECG 05/28/2024 14:03:21 HEART RATE HAS DECREASED Electronically Signed On 05-28-2024 20:01:43 CDT by Thierno Kendrick D.O.
[2024-05-28 18:33] LABS: Troponin I 0.013 ng/mL (0.000-0.034)
--- NOTE | 2024-05-28 19:10 | ADMGEN ---
This patient, Nely Sweeney, was admitted to Medical Room 248-01. Patient/family oriented to hospital policies and general routines including ID bracelet, bed and alarms, visiting hours, pain management, procedures, bathroom and other care routines, personal items, smoking policy, room service/diet, and visiting hours. Information on how to activate the Rapid Response Team has been discussed. Patient/Family are encouraged to report perceived risks to care and to ask questions if they do not understand what they are told or what they should do.
[2024-05-28 21:12] LABS: Glucose Point of Care 151 mg/dl (65-105)
[2024-05-28 21:28] LABS: Hemoglobin A1C 7.7 % (<5.7)
[2024-05-28] MEDS: AMITRIPTYLINE HCL 10 MG TABLET PO (21:31)
[2024-05-28] MEDS: REMDESIVIR 200 MG/NS 250 ML 200 MG/250 ML BAG 250 MG IVPB (21:31)
[2024-05-28 21:38] LABS: Troponin I 0.016 ng/mL (0.000-0.034)
[2024-05-28] MEDS: ACETAMINOPHEN 325 MG TABLET 650 MG PO (21:46)
[2024-05-29 04:51] VITALS: BP 149/62; PULSE 78; RESP 16; TEMP 37.1; O2SAT 96
[2024-05-29] MEDS: LEVOTHYROXINE SODIUM 25 MCG TABLET PO (05:58)
[2024-05-29 06:09] LABS: Mean Corpuscular HGB Conc 32.4 g/dl (32-36); Mean Corpuscular Volume 80.4 fl (80-100); Platelet Count Result 290 k/mm3 (150-375); Red Blood Count 4.23 M/mm3 (4.2-5.4); Red Cell Distribution Width 14.7 % (11.5-14.5); White Blood Count 8.6 K/mm3 (4.5-10.0)
[2024-05-29 06:25] LABS: Anion Gap 12 mmol/L (4-12); Blood Urea Nitrogen 25 mg/dL (7-17); Calcium 8.6 mg/dL (8.4-10.2); Carbon Dioxide 25 mmol/L (22-30); Chloride 99 mmol/L (98-107); Estimated Glomerular Filt Rate 47; Glucose 134 mg/dL (65-110); Lactate Dehydrogenase 198 U/L (120-246); Magnesium 1.8 mg/dL (1.6-2.3); Sodium 136 mmol/L (137-145)
[2024-05-29 06:43] LABS: CRP 13.4 mg/dL (<1.0)
[2024-05-29 07:51] LABS: Glucose Point of Care 136 mg/dl (65-105)
[2024-05-29] MEDS: ACETAMINOPHEN 325 MG TABLET 650 MG PO ×3 (08:52→20:51)
[2024-05-29] MEDS: ENOXAPARIN 30 MG/0.3 ML SYRINGE SUB-Q (08:53)
--- NOTE | 2024-05-29 09:19 | PM.IMPN ---
Progress Note: A&P Assessment and Plan (1) COVID: Code(s): U07.1 - COVID-19 Status: Acute Assessment and Plan: Stable. Remdesivir 250 mg IVPB daily. Monitor for fever, shortness of breath, or sputum with color. (2) Urinary tract infection: Code(s): N39.0 - Urinary tract infection, site not specified Status: Acute Assessment and Plan: Urine culture pending. Ceftriaxone 1 gram IVPB daily. (3) Diarrhea: Qualifiers: Diarrhea type: unspecified type Qualified Code(s): R19.7 - Diarrhea, unspecified Code(s): R19.7 - Diarrhea, unspecified Status: Acute Assessment and Plan: Patient having a couple of episodes today of diarrhea with odor per nurse. Send stool for c.diff studies. (4) C. difficile diarrhea: Code(s): A04.72 - Enterocolitis due to Clostridium difficile, not specified as recurrent Status: Acute Assessment and Plan: Add Fidaxomicin 200 mg PO Q12 x 10 days. Add contact precautions. Subjective Date/time seen: 05/29/24 09:19 Interval history: [facility] a [facility] 84[facility] with history of polio with bilateral lower extremity involvement, type 2 diabetes mellitus, hyperlipidemia, chronic kidney disease stage 3, anemia, and chronic back and leg pain who presented to the emergency department via EMS from home with weakness. The patient provides the following history. She has not been feeling well for several days with symptoms to include dry cough, poor appetite, generalized weakness, diarrhea, and urinary incontinence. She lives with her daughter who is also been sick with similar symptoms. Patient reports a headache that is a 5 , constant, and aching. Na+ 136, BUN 25, Creatinine 1.10, GFR 47, CRP 13.4. Review of Systems Constitutional: Constitutional: Denies chills Cardiovascular: Cardiovascular: Denies chest pain Respiratory: Respiratory: Reports cough and Denies dyspnea Gastrointestinal: Gastrointestinal: Denies abdominal pain, Reports diarrhea, Denies nausea and Denies vomiting Genitourinary: Genitourinary: Reports urinary incontinence Musculoskeletal: Musculoskeletal: Denies back pain Neurologic: Reports headache(s) Exam Narrative: General: Mildly ill but nontoxic in appearing elderly female in the semi-Quintero position in bed. Weight: 59.6 kg. BMI: 26.5. HEENT: PERRL, EOMI. Sclera anicteric. Tacky mucous membranes. Neck: Supple. Respiratory: Occasional dry cough. Respirations are nonlabored and she is speaking in full sentences. Lung sounds are clear to auscultation. Cardiovascular: Regular rate and rhythm with S1-S2. Gastrointestinal: Abdomen is soft, nontender, and nondistended with positive bowel sounds. Skin: Warm and dry. No rash or lesions on limited exam. Extremities: No cyanosis, clubbing, or edema. Generalized pallor. Neurological: Alert. Cranial nerves 2-12 are grossly intact. Generally weak without gross focal findings. Psychiatric: Pleasant and cooperative with normal mood and affect. Objective Data Vital Signs Vital Signs: Vital Signs - 24 hr 05/28/24 13:18 05/28/24 13:47 05/28/24 14:01 Temperature 97.6 F Pulse Rate 89 91 91 Respiratory Rate 20 22 H 18 Blood Pressure 131/65 158/112 H 130/71 Pulse Oximetry 93 100 95 Oxygen Delivery Room Air 05/28/24 15:53 05/28/24 16:17 05/28/24 16:17 Temperature Pulse Rate 89 88 88 Respiratory Rate 17 Blood Pressure 154/85 H 159/82 H 150/79 H Pulse Oximetry 100 Oxygen Delivery 05/28/24 16:18 05/28/24 16:15 05/28/24 16:16 Temperature Pulse Rate 88 96 93 Respiratory Rate 21 H 15 Blood Pressure 140/75 140/75 152/81 H Pulse Oximetry 94 93 Oxygen Delivery 05/28/24 16:31 05/28/24 16:46 05/28/24 17:01 Temperature Pulse Rate 87 84 85 Respiratory Rate 12 18 19 Blood Pressure 151/86 H 150/84 H 134/78 Pulse Oximetry 97 100 97 Oxygen Delivery 05/28/24 17:16 05/28/24 17:31 0
[2024-05-29 12:11] LABS: Toxigenic C. Diff POSITIVE (NEGATIVE)
[2024-05-29 12:20] LABS: Glucose Point of Care 128 mg/dl (65-105)
[2024-05-29] MEDS: FIDAXOMICIN 200 MG TABLET PO (13:07)
[2024-05-29 14:00] VITALS: BP 173/81; PULSE 94; RESP 16; TEMP 36.8; O2SAT 99
[2024-05-29 16:12] VITALS: BP 144/61; PULSE 89; RESP 18; O2SAT 100
[2024-05-29 17:03] LABS: Glucose Point of Care 164 mg/dl (65-105)
[2024-05-29 19:28] VITALS: BP 121/61; PULSE 86; RESP 18; TEMP 36.5; O2SAT 90
[2024-05-29 20:00] VITALS: PULSE 86; RESP 18; O2SAT 90
[2024-05-29 20:28] LABS: Glucose Point of Care 211 mg/dl (65-105)
[2024-05-29] MEDS: INSULIN ASPART (*BKC) 100 UNITS/ML SUB-Q (20:50)
[2024-05-29] MEDS: AMITRIPTYLINE HCL 10 MG TABLET PO (20:51)
[2024-05-29] MEDS: REMDESIVIR 100 MG/NS 250 ML 100 MG/250 ML BAG 250 MG IVPB (20:51)
[2024-05-30] MEDS: VANCOMYCIN HCL 125 MG ORAL CAPSULE PO ×4 (00:05→17:05)
[2024-05-30 05:18] VITALS: BP 142/70; PULSE 68; RESP 20; TEMP 37.1; O2SAT 99
[2024-05-30] MEDS: LEVOTHYROXINE SODIUM 25 MCG TABLET PO (05:43)
[2024-05-30 06:04] LABS: Basophils Absolute Auto 0.1 K/mm3 (0.0-0.1); Basophils Percent Auto 0.9 % (0.2-1.2); Eosinophils Absolute Auto 0.3 K/mm3 (0-0.3); Eosinophils Percent Auto 5.7 % (0-4.4); Hematocrit 32.4 % (37.0-47.0); Hemoglobin 10.3 g/dL (12.0-15.0); Immature Granulocyte Absolute 0.02 K/mm3 (0.00-0.031); Immature Granulocyte Percent A 0.4 % (0-0.5); Lymphocytes Absolute Auto 1.82 K/mm3 (0.9-3.2); Lymphocytes Percent Auto 32.6 % (18.3-44.2); Mean Corpuscular HGB Conc 31.8 g/dl (32-36); Mean Corpuscular Hemoglobin 25.5 pg (26-34); Mean Corpuscular Volume 80.2 fl (80-100); Mean Platelet Volume 10.1 fl (7.4-10.4); Monocytes Absolute Auto 0.6 K/mm3 (0.1-0.6); Monocytes Percent Auto 11.5 % (2.6-8.5); Neutrophils Absolute Auto 2.7 K/mm3 (1.3-6.7); Neutrophils Percent Auto 48.9 % (45.5-73.1); Platelet Count Result 304 k/mm3 (150-375); Red Blood Count 4.04 M/mm3 (4.2-5.4); Red Cell Distribution Width 14.4 % (11.5-14.5); White Blood Count 5.6 K/mm3 (4.5-10.0)
[2024-05-30 06:09] LABS: INR 0.9; Prothrombin Time 12.9 Seconds (11.1-14.7)
[2024-05-30 06:10] LABS: Alanine Aminotransferase 19 U/L (6-35); Albumin Level 3.6 g/dL (3.5-5.1); Alkaline Phosphatase 106 U/L (38-126); Anion Gap 10 mmol/L (4-12); Aspartate Amino Transferase 32 U/L (14-36); Bilirubin,Total 0.2 mg/dL (0.2-1.3); Blood Urea Nitrogen 28 mg/dL (7-17); Calcium 8.6 mg/dL (8.4-10.2); Carbon Dioxide 25 mmol/L (22-30); Chloride 103 mmol/L (98-107); Estimated Glomerular Filt Rate 47; Glucose 143 mg/dL (65-110); Potassium 3.3 mmol/L (3.4-5.0); Sodium 138 mmol/L (137-145)
[2024-05-30 08:05] LABS: Glucose Point of Care 139 mg/dl (65-105)
[2024-05-30] MEDS: ACETAMINOPHEN 325 MG TABLET 650 MG PO ×2 (10:19→20:20)
[2024-05-30] MEDS: POTASSIUM CHLORIDE 20 MEQ ER TABLET 40 MEQ PO (10:19)
[2024-05-30] MEDS: ENOXAPARIN 30 MG/0.3 ML SYRINGE SUB-Q (10:22)
--- NOTE | 2024-05-30 11:15 | PM.IMPN ---
Progress Note: A&P Assessment and Plan (1) COVID: Code(s): U07.1 - COVID-19 Status: Acute Assessment and Plan: Stable. Temp 98.7. WBC 5.6. Remdesivir 250 mg IVPB daily. Monitor for fever, shortness of breath, or sputum with color. (2) Urinary tract infection: Code(s): N39.0 - Urinary tract infection, site not specified Status: Acute Assessment and Plan: Urine culture showed Klebsiella pneumonia. Ceftriaxone 1 gram IVPB daily. (3) C. difficile diarrhea: Code(s): A04.72 - Enterocolitis due to Clostridium difficile, not specified as recurrent Status: Acute Assessment and Plan: Receiving Vancomycin 125 mg every 6 hours for 10 days. Patient denies diarrhea since yesterday afternoon. patient is on contact isolation. Encourage hydration, monitor bowel movements. (4) Hypokalemia: Code(s): E87.6 - Hypokalemia Status: Acute Assessment and Plan: Potassium 3.3, patient is supplemented with 40 mEq of potassium chloride x1. Recheck labs in the a.m. Subjective Date/time seen: 05/30/24 11:16 Interval history: Patient is a pleasant 84-year-old female with history of polio with bilateral lower extremity involvement, type 2 diabetes mellitus, hyperlipidemia, chronic kidney disease stage 3, anemia, and chronic back and leg pain who presented to the emergency department via EMS from home with weakness. The patient provides the following history. She has not been feeling well for several days with symptoms to include dry cough, poor appetite, generalized weakness, diarrhea, and urinary incontinence. She lives with her daughter who is also been sick with similar symptoms. Patient reports a headache that is a 2 , constant, and aching. Patient reports no bowel movement today diarrhea subsided last evening, patient was started on vancomycin p.o. for C diff yesterday Na+ 138, potassium 3.3, BUN 28, Creatinine 1.10, GFR 47, CRP 13.4. Review of Systems Review of Systems: 12 systems were reviewed and are negative except for as per HPI. Constitutional: Constitutional: Denies chills and Reports headache(s) ENT: Reports headache(s) Cardiovascular: Cardiovascular: Denies chest pain and Denies dyspnea Respiratory: Respiratory: Reports cough and Denies dyspnea Gastrointestinal: Gastrointestinal: Denies abdominal pain, Denies nausea and Denies vomiting Genitourinary: Genitourinary: Reports urinary incontinence Musculoskeletal: Musculoskeletal: Denies back pain Neurologic: Reports headache(s) Exam Narrative: General: Mildly ill but nontoxic in appearing elderly female in the semi-Quintero position in bed. Weight: 59.6 kg. BMI: 26.5. HEENT: PERRL, EOMI. Sclera anicteric. Tacky mucous membranes. Neck: Supple. Respiratory: Occasional dry cough. Respirations are nonlabored and she is speaking in full sentences. Lung sounds are clear to auscultation. Cardiovascular: Regular rate and rhythm with S1-S2. Gastrointestinal: Abdomen is soft, nontender, and nondistended with positive bowel sounds. Skin: Warm and dry. No rash or lesions on limited exam. Extremities: No cyanosis, clubbing, or edema. Generalized pallor. Neurological: Alert. Cranial nerves 2-12 are grossly intact. Generally weak without gross focal findings. Psychiatric: Pleasant and cooperative with normal mood and affect. Objective Data Vital Signs Vital Signs: Vital Signs - 24 hr 05/29/24 14:00 05/29/24 16:12 05/29/24 19:28 Temperature 98.2 F 97.7 F Pulse Rate 94 89 86 Respiratory Rate 16 18 18 Blood Pressure 173/81 H 144/61 H 121/61 Pulse Oximetry 99 100 90 Oxygen Delivery 05/29/24 20:00 05/30/24 05:18 Temperature 98.7 F Pulse Rate 86 68 Respiratory Rate 18 20 Blood Pressure 142/70 H Pulse Oximetry 90 99 Oxygen Delivery Room Air Intake/Output Intake/Output: Intake & Output 05/27/24 05/28/24 05/29/24 05/30/24 23:59 23:59 23:59 23:59 Inta
[2024-05-30 12:12] LABS: Glucose Point of Care 150 mg/dl (65-105)
[2024-05-30 14:00] VITALS: BP 153/93; PULSE 84; RESP 16; TEMP 36.2; O2SAT 96
[2024-05-30 16:48] LABS: Glucose Point of Care 168 mg/dl (65-105)
[2024-05-30 20:00] VITALS: PULSE 79; RESP 16; O2SAT 97
[2024-05-30 20:02] VITALS: BP 170/80; PULSE 79; RESP 16; TEMP 36.6; O2SAT 97
[2024-05-30 20:16] VITALS: BP 140/102
[2024-05-30] MEDS: AMITRIPTYLINE HCL 10 MG TABLET PO (20:20)
[2024-05-30] MEDS: INSULIN ASPART (*BKC) 100 UNITS/ML SUB-Q (20:21)
[2024-05-30] MEDS: REMDESIVIR 100 MG/NS 250 ML 100 MG/250 ML BAG 250 MG IVPB (20:21)
[2024-05-30 20:43] LABS: Glucose Point of Care 242 mg/dl (65-105)
[2024-05-31] MEDS: VANCOMYCIN HCL 125 MG ORAL CAPSULE PO ×5 (00:27→23:34)
[2024-05-31] MEDS: LEVOTHYROXINE SODIUM 25 MCG TABLET PO (05:01)
[2024-05-31 05:14] LABS: Basophils Absolute Auto 0.1 K/mm3 (0.0-0.1); Eosinophils Absolute Auto 0.5 K/mm3 (0-0.3); Eosinophils Percent Auto 8.3 % (0-4.4); Hematocrit 32.9 % (37.0-47.0); Hemoglobin 10.3 g/dL (12.0-15.0); Immature Granulocyte Absolute 0.03 K/mm3 (0.00-0.031); Immature Granulocyte Percent A 0.5 % (0-0.5); Lymphocytes Absolute Auto 2.25 K/mm3 (0.9-3.2); Lymphocytes Percent Auto 37.3 % (18.3-44.2); Mean Corpuscular HGB Conc 31.3 g/dl (32-36); Mean Corpuscular Hemoglobin 25.2 pg (26-34); Mean Corpuscular Volume 80.6 fl (80-100); Mean Platelet Volume 10.4 fl (7.4-10.4); Monocytes Absolute Auto 0.6 K/mm3 (0.1-0.6); Monocytes Percent Auto 10.3 % (2.6-8.5); Neutrophils Absolute Auto 2.6 K/mm3 (1.3-6.7); Neutrophils Percent Auto 42.6 % (45.5-73.1); Platelet Count Result 317 k/mm3 (150-375); Red Blood Count 4.08 M/mm3 (4.2-5.4); Red Cell Distribution Width 14.5 % (11.5-14.5)
[2024-05-31 05:21] VITALS: BP 149/83; PULSE 65; RESP 20; TEMP 36.8; O2SAT 98
[2024-05-31 05:34] LABS: Alanine Aminotransferase 17 U/L (6-35); Albumin Level 3.6 g/dL (3.5-5.1); Alkaline Phosphatase 101 U/L (38-126); Anion Gap 8 mmol/L (4-12); Aspartate Amino Transferase 34 U/L (14-36); Bilirubin,Total 0.2 mg/dL (0.2-1.3); Blood Urea Nitrogen 25 mg/dL (7-17); Carbon Dioxide 27 mmol/L (22-30); Chloride 103 mmol/L (98-107); Estimated Glomerular Filt Rate 53; Glucose 152 mg/dL (65-110); Potassium 4.6 mmol/L (3.4-5.0); Sodium 138 mmol/L (137-145)
[2024-05-31 08:06] LABS: Glucose Point of Care 137 mg/dl (65-105)
[2024-05-31] MEDS: ENOXAPARIN 40 MG/0.4 ML SYRINGE SUB-Q (08:52)
--- NOTE | 2024-05-31 10:53 | PM.IMPN ---
Progress Note: A&P Assessment and Plan (1) COVID: Code(s): U07.1 - COVID-19 Status: Acute Assessment and Plan: Improving. Temp 98.3. WBC 6.0. Remdesivir 250 mg IVPB daily. Monitor for fever, shortness of breath, or sputum with color. (2) Urinary tract infection: Code(s): N39.0 - Urinary tract infection, site not specified Status: Acute Assessment and Plan: Urine culture showed Klebsiella pneumonia. Ceftriaxone 1 gram IVPB daily. (3) C. difficile diarrhea: Code(s): A04.72 - Enterocolitis due to Clostridium difficile, not specified as recurrent Status: Acute Assessment and Plan: Receiving Vancomycin 125 mg every 6 hours for 10 days. Patient denies diarrhea since 2 days ago. Patient is on contact isolation. Encourage hydration, monitor bowel movements. (4) Hypokalemia: Code(s): E87.6 - Hypokalemia Status: Acute Assessment and Plan: Improved to 4.6 after being supplemented with 40 mEq of potassium chloride x1 yesterday for a potassium of 3.3. Recheck labs in the a.m. (5) Weakness: Code(s): R53.1 - Weakness Status: Acute Assessment and Plan: PT/OT working with patient. Patient reports feeling really sick to stomach when she got up with physical therapy yesterday. Subjective Date/time seen: 05/31/24 10:53 Interval history: Patient is a pleasant 84-year-old female with history of polio with bilateral lower extremity involvement, type 2 diabetes mellitus, hyperlipidemia, chronic kidney disease stage 3, anemia, and chronic back and leg pain who presented to the emergency department via EMS from home with weakness. The patient provides the following history. She has not been feeling well for several days with symptoms to include dry cough, poor appetite, generalized weakness, diarrhea, and urinary incontinence. She lives with her daughter who is also been sick with similar symptoms. Denies pain. Patient reports no bowel movement today diarrhea subsided last evening, patient was started on vancomycin p.o. for C diff. Patient reports feeling really sick to stomach when she got up with physical therapy yesterday. Patient daughter has COVID also. Patient needs to be strong enough to go home per patient. WBC 6.0. Na+ 138, potassium 4.6, BUN 28, Creatinine 1.00, GFR 53, CRP 13.4 Review of Systems Review of Systems: 12 systems were reviewed and are negative except for as per HPI. Constitutional: Constitutional: Denies chills and Reports lethargy ENT: Denies headache(s) Cardiovascular: Cardiovascular: Denies chest pain and Denies dyspnea Respiratory: Respiratory: Reports cough and Denies dyspnea Gastrointestinal: Gastrointestinal: Denies abdominal pain, Denies diarrhea, Denies nausea and Denies vomiting Genitourinary: Genitourinary: Reports urinary incontinence Musculoskeletal: Musculoskeletal: Denies back pain Neurologic: Denies headache(s) Exam Narrative: General: Mildly ill but nontoxic in appearing elderly female in the semi-Quintero position in bed. Weight: 59.6 kg. BMI: 26.5. HEENT: PERRL, EOMI. Sclera anicteric. Moist mucous membranes. Neck: Supple. Respiratory: Occasional dry cough. Respirations are nonlabored and she is speaking in full sentences. Lung sounds are clear to auscultation. Cardiovascular: Regular rate and rhythm with S1-S2. Gastrointestinal: Abdomen is soft, nontender, and nondistended with positive bowel sounds. Skin: Warm and dry. No rash or lesions on limited exam. Extremities: No cyanosis, clubbing, or edema. Generalized pallor. Neurological: Alert. Cranial nerves 2-12 are grossly intact. Generally weak without gross focal findings. Psychiatric: Pleasant and cooperative with normal mood and affect. Objective Data Vital Signs Vital Signs: Vital Signs - 24 hr 05/30/24 11:45 05/30/24 14:08 05/30/24 14:00 Temperature 97.1 F L Pulse Rate 84 Respiratory Rat
[2024-05-31 11:55] LABS: Glucose Point of Care 187 mg/dl (65-105)
--- NOTE | 2024-05-31 13:49 | PC.NURSE ---
Notified provider PJ that patient was successful in having a BM this afternoon. Provider stated patient will be discharged home today.
[2024-05-31 16:03] VITALS: BP 184/75; PULSE 73; RESP 16; TEMP 36.8; O2SAT 100
[2024-05-31] MEDS: AMOXICILLIN/CLAVULANATE K 500-125 MG TAB 1 TABLET PO ×2 (16:41→22:28)
[2024-05-31 17:02] LABS: Glucose Point of Care 140 mg/dl (65-105)
[2024-05-31] MEDS: ACETAMINOPHEN 325 MG TABLET 650 MG PO (18:41)
[2024-05-31 20:41] VITALS: BP 139/74; PULSE 88; RESP 17; TEMP 36.6; O2SAT 91
[2024-05-31 21:02] LABS: Glucose Point of Care 174 mg/dl (65-105)
[2024-05-31] MEDS: AMITRIPTYLINE HCL 10 MG TABLET PO (22:28)
[2024-05-31] MEDS: REMDESIVIR 100 MG/NS 250 ML 100 MG/250 ML BAG 250 MG IVPB (22:29)
[2024-06-01 04:14] VITALS: BP 154/84; PULSE 88; RESP 18; TEMP 36.7; O2SAT 100
[2024-06-01 05:42] LABS: Basophils Absolute Auto 0.1 K/mm3 (0.0-0.1); Eosinophils Absolute Auto 0.4 K/mm3 (0-0.3); Eosinophils Percent Auto 5.2 % (0-4.4); Hematocrit 32.7 % (37.0-47.0); Hemoglobin 10.6 g/dL (12.0-15.0); Immature Granulocyte Absolute 0.03 K/mm3 (0.00-0.031); Immature Granulocyte Percent A 0.4 % (0-0.5); Lymphocytes Absolute Auto 2.05 K/mm3 (0.9-3.2); Lymphocytes Percent Auto 28.2 % (18.3-44.2); Mean Corpuscular HGB Conc 32.4 g/dl (32-36); Mean Corpuscular Hemoglobin 25.9 pg (26-34); Mean Corpuscular Volume 79.8 fl (80-100); Mean Platelet Volume 10.6 fl (7.4-10.4); Monocytes Absolute Auto 0.5 K/mm3 (0.1-0.6); Neutrophils Absolute Auto 4.2 K/mm3 (1.3-6.7); Neutrophils Percent Auto 58.2 % (45.5-73.1); Platelet Count Result 327 k/mm3 (150-375); Red Cell Distribution Width 14.4 % (11.5-14.5); White Blood Count 7.3 K/mm3 (4.5-10.0)
[2024-06-01] MEDS: LEVOTHYROXINE SODIUM 25 MCG TABLET PO (05:45)
[2024-06-01] MEDS: VANCOMYCIN HCL 125 MG ORAL CAPSULE PO ×2 (05:45→12:28)
[2024-06-01 06:03] LABS: Alanine Aminotransferase 16 U/L (6-35); Albumin Level 3.7 g/dL (3.5-5.1); Alkaline Phosphatase 98 U/L (38-126); Anion Gap 12 mmol/L (4-12); Aspartate Amino Transferase 28 U/L (14-36); Bilirubin,Total 0.3 mg/dL (0.2-1.3); Blood Urea Nitrogen 22 mg/dL (7-17); Calcium 8.7 mg/dL (8.4-10.2); Carbon Dioxide 25 mmol/L (22-30); Chloride 99 mmol/L (98-107); Estimated Glomerular Filt Rate 53; Glucose 150 mg/dL (65-110); Potassium 3.5 mmol/L (3.4-5.0); Sodium 136 mmol/L (137-145)
[2024-06-01 06:07] LABS: INR 0.9; Prothrombin Time 12.7 Seconds (11.1-14.7)
[2024-06-01 08:21] LABS: Glucose Point of Care 143 mg/dl (65-105)
[2024-06-01] MEDS: AMOXICILLIN/CLAVULANATE K 500-125 MG TAB 1 TABLET PO (08:51)
[2024-06-01] MEDS: POTASSIUM CHLORIDE 20 MEQ ER TABLET PO (08:52)
[2024-06-01] MEDS: ENOXAPARIN 40 MG/0.4 ML SYRINGE SUB-Q (08:52)
--- NOTE | 2024-06-01 11:02 | PM.DS ---
DS: Admitting Diagnosis Discharge Date 06/01/2024 Admitting Diagnosis Weakness DS: Discharge Diagnosis Discharge Diagnosis (1) COVID-19: Code(s): U07.1 - COVID-19 Status: Acute (2) C. difficile diarrhea: Code(s): A04.72 - Enterocolitis due to Clostridium difficile, not specified as recurrent Status: Acute (3) UTI (urinary tract infection): Qualifiers: Hematuria presence: with hematuria Urinary tract infection type: acute cystitis Qualified Code(s): N30.01 - Acute cystitis with hematuria Code(s): N39.0 - Urinary tract infection, site not specified Status: Acute DS: Summary Hospital Course Reason for hospitalization: COVID, C. diff, UTI Hospital Course: Patient is a pleasant 84-year-old female with history of polio with bilateral lower extremity involvement, type 2 diabetes mellitus, hyperlipidemia, chronic kidney disease stage 3, anemia, and chronic back and leg pain who presented to the emergency department via EMS from home with weakness. COVID positive, C.diff positive, and positive for a UTI. Patient improved with Remdesivir and antibiotics. Diarrhea improved with Vancomycin PO. Improving mobility with PT/OT. Chest X-Ray 05/28/24 14:39 IMPRESSION: Cardiomegaly Aortic atherosclerosis Large hiatal hernia Minimal infiltrate or atelectasis, left lower lobe Head CT 05/28/24 16:20 IMPRESSION: Central and cortical cerebral and cerebellar atrophy Diminished attenuation of cerebral white matter, likely due to chronic small vessel ischemic changes No acute intracranial finding or significant change since 07/27/2023 Chest CTA 05/28/24 17:14 IMPRESSION: No evidence of pulmonary embolism Large hiatal hernia containing majority of stomach Mild bilateral lower lobe atelectasis Cardiomegaly Status at Discharge Functional status at discharge: uses cane/walker Overall status at discharge: patient is progressing back to baseline Time Spent with Patient Time attestation: Total time spent providing and/or coordinating discharge services: Time spent: Greater than 30 minutes Exam Narrative: General: Mildly ill but nontoxic in appearing elderly female in the semi-Quintero position in bed. Weight: 59 kg. BMI: 26.3. HEENT: PERRL, EOMI. Sclera anicteric. Moist mucous membranes. Neck: Supple. Respiratory: Occasional dry cough. Respirations are nonlabored and she is speaking in full sentences. Lung sounds are clear to auscultation. Cardiovascular: Regular rate and rhythm with S1-S2. Gastrointestinal: Abdomen is soft, nontender, and nondistended with positive bowel sounds. Skin: Warm and dry. No rash or lesions on limited exam. Extremities: No cyanosis, clubbing, or edema. Generalized pallor. Neurological: Alert. Cranial nerves 2-12 are grossly intact. Generally weak without gross focal findings. Psychiatric: Pleasant and cooperative with normal mood and affect. DS: Data Data Completed and Pending Labs on day of discharge: Labs from last 24 hours 06/01/24 06/01/24 05/31/24 08:18 05:14 20:36 WBC 7.3 RBC 4.10 L Hgb 10.6 L Hct 32.7 L MCV 79.8 L MCH 25.9 L MCHC 32.4 RDW 14.4 Plt Count 327 MPV 10.6 H Immature Gran % (Auto) 0.4 Neut % (Auto) 58.2 Lymph % (Auto) 28.2 Edmunds % (Auto) 7.0 Eos % (Auto) 5.2 H Baso % (Auto) 1.0 Lymph # (Auto) 2.05 Edmunds # (Auto) 0.5 Eos # (Auto) 0.4 H Baso # (Auto) 0.1 Abs Immat Gran (auto) 0.03 Absolute Neuts (auto) 4.2 Absolute Nucleated RBC 0.000 Nucleated RBC % 0.0 PT 12.7 INR 0.9 Sodium 136 L Potassium 3.5 Chloride 99 Carbon Dioxide 25 Anion Gap 12 BUN 22 H Creatinine 1.00 Estim Creat Clear Calc Not Reportable Estimated GFR 53 L Glucose 150 H POC Capillary Glucose 143 H 174 H Calcium 8.7 Total Bilirubin 0.3 Direct Bilirubin 0.0 AST 28 ALT 16 Alkaline Phosphatase 98 Tota
[2024-06-01 11:40] LABS: Glucose Point of Care 157 mg/dl (65-105)
[2024-06-01 14:00] VITALS: BP 173/80; PULSE 95; RESP 14; TEMP 36.6; O2SAT 98
[2024-06-01 16:42] VITALS: BP 155/87
== END 2024-06-01 17:30 | disposition home or self-care (01) | DRG 178 ==
LOC: ANHED 14:19 → ANH2MED 18:35
PROVIDERS: Physician Assistant; Student in an Organized Health Care Education/Training Program; Admitting Provider Internal Medicine; Emergency Provider Physician Assistant; PCP Nurse Practitioner Family; Visit Provider Nurse Practitioner Family
DX: U07.1 COVID-19 (principal); A04.72 Enterocolitis due to Clostridium difficile, not specified as recurrent; N39.0 Urinary tract infection, site not specified; N18.30 Chronic kidney disease, stage 3 unspecified; E11.22 Type 2 diabetes mellitus with diabetic chronic kidney disease; E87.6 Hypokalemia; E86.0 Dehydration; E78.5 Hyperlipidemia, unspecified; E03.9 Hypothyroidism, unspecified; E55.9 Vitamin D deficiency, unspecified; B96.1 Klebsiella pneumoniae [K. pneumoniae] as the cause of diseases classified elsewhere; K21.9 Gastro-esophageal reflux disease without esophagitis; M47.812 Spondylosis without myelopathy or radiculopathy, cervical region; M54.16 Radiculopathy, lumbar region; M48.061 Spinal stenosis, lumbar region without neurogenic claudication; M19.90 Unspecified osteoarthritis, unspecified site; G89.29 Other chronic pain; G14 Postpolio syndrome; F41.9 Anxiety disorder, unspecified; F32.A Depression, unspecified
CPT/HCPCS: 36415; 70450; 71046; 71275; 80048; 80053; 81001; 82248; 82728; 82948; 83036; 83615; 83690; 83735; 83880; 84484; 85025; 85027; 85380; 85610; 85730; 86140; 87077; 87086; 87088; 87186; 87493; 87637; 93005; 96361; 96365; 96375; 97110; 97116; 97161; 97165; 97530; 97535; 99285; A9270; G0378; J0248; J0696; J1650; J1815; J7030; Q9967

== ENCOUNTER 2025-02-02 19:48 | Emergency (ER) | payer MEDICARE, BC, SELFPAY ==
--- NOTE | ~2025-02-02 | CT_ITS ---
EXAMINATION: CT brain wo con DATE: 02/03/2025 01:38 INDICATION: Headache. Hypertension. TECHNIQUE: Computed tomography (CT) of the head was performed without intravenous contrast. Sagittal and coronal reconstructions were performed. The mA was adjusted according to patient size. Iterative reconstruction technique was employed. The dose-length product was 605.33 mGy-cm. COMPARISON: head CT dated 05/28/24 FINDINGS: No acute intracranial hemorrhage, acute infarction or abnormal extra axial fluid collection. There is moderate scattered white matter hypoattenuation consistent with chronic small vessel ischemic diseas e. Symmetric prominence of the sulci consistent with mild to moderate age-appropriate diffuse cerebra l volume loss. Ventricles are normal and symmetric. No mass/mass effect. The orbits, paranasal sinuse s and mastoid air cells are normal. IMPRESSION: 1. No acute intracranial process. 2. Age-related changes including mild to moderate diffuse on loss and moderate scattered white matter hypoattenuation consistent with chronic small vessel ischemic disease. Reviewed, dictated and finalized at location A. IMPRESSION: 1. No acute intracranial process. 2. Age-related changes including mild to moderate diffuse on loss and moderate scattered white matter hypoattenuation consistent with chronic small vessel isc hemic disease.
--- NOTE | ~2025-02-02 | XR_ITS ---
XR chest 2V Ordering provider: Dave Blandon History: 84 years Female with . sob . Comparison: May 28, 2024 FINDINGS: MEDIASTINUM: The cardiac silhouette is slightly enlarged. Sliding hiatus hernia. LUNGS: No effusions or pneumothorax. Opacification in the left lung base. OTHER: No free air under the diaphragm. Degenerative changes of the spine. IMPRESSION: Left basilar atelectasis versus pneumonia. Reviewed, dictated and finalized at location A.
--- NOTE | ~2025-02-02 | CT_ITS ---
EXAMINATION: CTA chest abdomen pelvis DATE: 02/03/2025 02:24 INDICATION: Low back pain. Hypertension. TECHNIQUE: Computed tomographic angiography (CTA) of the chest, abdomen, and pelvis was performed wit hout and with 100 mL Omnipaque-350 intravenous contrast. Volume-rendered 3D-reconstructions of the ao rta and large arteries were constructed by the technologist on a separate workstation. Automated expo sure control and iterative reconstruction technique were employed. The dose-length product was 553.83 mGy-cm. COMPARISON: Chest CT dated 06/07/24 FINDINGS: Chest: Mild emphysema. Groundglass opacities in both lungs with dependent basilar peripheral reticular opaci ties in both lungs and favor atelectasis over pneumonia or pulmonary edema. No pleural effusion. Mild cardiomegaly. Dense mitral annular calcific lesion. No pericardial effusion. There is enlargement of the central pulmonary arteries consistent with pulmonary arterial hypertension. No evident pulmonary embolism. Thoracic aorta is normal in caliber with no dissection. Calcified right hilar and mediasti nal lymph nodes consistent with old granulomatous disease. No pathologically enlarged thoracic lympha denopathy. Large sliding-type hiatal hernia. Severe thoracic spondylosis. Abdomen and pelvis: A few hepatic and splenic calcifications consistent with old granulomatous disease. Mild central intr ahepatic biliary ductal dilation. The common bile duct measures up to 8 mm diameter which is within n ormal limits for age. Normal gallbladder. Pancreas, left kidney and bilateral adrenal glands are norm al. Partially duplicated right renal collecting system draining to separate proximal ureters which ap pear to fuse at level of the mid ureters. Small fat-containing umbilical hernia. Mild scattered diver ticulosis with sigmoid colon predominance and without adjacent from trace stranding to suggest divert iculitis. Small bowel and appendix are normal. There are couple calcified uterine fibroids. Bladder a nd bilateral adnexa are unremarkable. There is mild scattered nonhemodynamically significant calcifie d atherosclerosis of the normal caliber aorta and many of the other arteries. No free intraperitoneal gas or fluid. No pathologically enlarged abdominal or pelvic lymphadenopathy. No aneurysm or dissect ion. Severe lumbar spondylosis. IMPRESSION: 1. Normal caliber aorta with no aneurysm or dissection. 2. Mild emphysema with atelectasis in the basilar and dependent lungs. 3. Large sliding-type hiatal hernia. 4. Mild intrahepatic biliary ductal dilation and borderline dilation the common bile duct without marcelino dent obstructing stone or mass. Correlate with liver function tests and if clinically indicated could consider HIDA scan for further evaluation. 5. Duplicated right renal collecting system. 6. Diverticulosis. 7. Calcified uterine fibroids. 8. Severe thoracic and lumbar spondylosis. Reviewed, dictated and finalized at location A. IMPRESSION: 1. Normal caliber aorta with no aneurysm or dissection. 2. Mild emphysema with atelectasis in the basilar and dependent lungs. 3. Large sliding-type hiatal hernia. 4. Mild intrahepatic biliary ductal dilation and borderline dilation the common bile duct without evident obstructing stone or mass. Correlate with liver func tion tests and if clinically indicated could consider HIDA scan for further raúl luation. 5. Duplicated right renal collecting system. 6. Diverticulosis. 7. Calcified uterine fibroids. 8. Severe thoracic and lumbar spondylosis.
[2025-02-02 19:57] VITALS: BP 191/111; PULSE 84; RESP 16; TEMP 36.6; O2SAT 99
--- NOTE | 2025-02-02 20:01 | ECG_ITS ---
Test Date: 2025-02-02 20:48:13 Measurements Intervals [place] Rate: 67 P: 39 ME: 186 QRS: -54 QRSD: 93 T: 71 QT: 427 QTc: 453 Interpretive Statements SINUS RHYTHM MARKED LEFT AXIS DEVIATION [QRS AXIS < -30] LEFT VENTRICULAR HYPERTROPHY AND ST-T CHANGE [VOLTAGE CRITERIA PLUS ST/T ABNORMALITY] ABNORMAL ECG Electronically Signed On 02-03-2025 08:06:41 CDT by Kg Perez M.D.
[2025-02-02 20:54] LABS: Basophils Absolute Auto 0.1 K/mm3 (0.0-0.1); Basophils Percent Auto 1.3 % (0.2-1.2); Eosinophils Absolute Auto 0.3 K/mm3 (0-0.3); Eosinophils Percent Auto 2.6 % (0-4.4); Hematocrit 33.8 % (37.0-47.0); Hemoglobin 10.5 g/dL (12.0-15.0); Immature Granulocyte Absolute 0.02 K/mm3 (0.00-0.031); Immature Granulocyte Percent A 0.2 % (0-0.5); Lymphocytes Absolute Auto 2.73 K/mm3 (0.9-3.2); Lymphocytes Percent Auto 28.9 % (18.3-44.2); Mean Corpuscular HGB Conc 31.1 g/dl (32-36); Mean Corpuscular Hemoglobin 23.9 pg (26-34); Mean Corpuscular Volume 76.8 fl (80-100); Monocytes Absolute Auto 0.7 K/mm3 (0.1-0.6); Monocytes Percent Auto 7.2 % (2.6-8.5); Neutrophils Absolute Auto 5.7 K/mm3 (1.3-6.7); Neutrophils Percent Auto 59.8 % (45.5-73.1); Platelet Count Result 435 k/mm3 (150-375); Red Cell Distribution Width 14.9 % (11.5-14.5); White Blood Count 9.5 K/mm3 (4.5-10.0)
[2025-02-02 21:05] LABS: Alanine Aminotransferase 19 U/L (6-35); Albumin Level 4.9 g/dL (3.5-5.1); Alkaline Phosphatase 115 U/L (38-126); Anion Gap 14 mmol/L (4-12); Aspartate Amino Transferase 41 U/L (14-36); Bilirubin,Total 0.5 mg/dL (0.2-1.3); Blood Urea Nitrogen 32 mg/dL (7-17); Calcium 9.5 mg/dL (8.4-10.2); Carbon Dioxide 20 mmol/L (22-30); Chloride 103 mmol/L (98-107); Estimated Glomerular Filt Rate 50; Glucose 144 mg/dL (65-110); Potassium 3.7 mmol/L (3.4-5.0); Sodium 137 mmol/L (137-145)
[2025-02-02 21:30] LABS: Influenza A QL RT-PCR Negative (Negative); Influenza B QL RT-PCR Negative (Negative); RSV RNA, RT-PCR Negative (Negative); SARS-CoV-2 RNA PCR Negative (Negative)
[2025-02-02 22:16] VITALS: BP 211/104; PULSE 68; RESP 18; TEMP 36.7; O2SAT 100
[2025-02-03] VITALS (8 sets, daily range): BP systolic 185–211; BP diastolic 77–91; PULSE 65–77; RESP 12–20; TEMP 36.5; O2SAT 96–100
[2025-02-03] MEDS: LACTATED RINGERS 1,000 ML 999 ML IV CONT (01:57)
--- NOTE | 2025-02-03 02:18 | ED.BACK ---
HPI - Back Pain/Injury General Chief Complaint: Back Pain/Injury Stated Complaint: Low back pain, hypertension Time Seen by Provider: 02/03/25 01:19 History of Present Illness HPI Narrative: 84-year-old female with history of polio, type 2 diabetes, hyperlipidemia, CKD, chronic back pain. Patient presents to the emergency room with concerns of elevated blood pressure readings and low back pain. She went to urgent care with complaints low back pain concerns that she might be having urinary tract infection. They referred her to the emergency department after they got triage vitals that showed blood pressure in the 200 systolic range. She does not have any symptoms such as dizziness, syncope, chest pain, shortness a breath, nausea, vomiting, neurological complaints. She states she does not take any blood pressure medications. On review of the EMR patient has had multiple visits here with elevated blood pressure readings but she is currently not taking any medication for this. She has a regular primary care provider that she follows up with. No trauma or injuries. She states that the back pain is chronic for her. Related Data Home Medications Medication Instructions Recorded Confirmed Last Taken Type acetaminophen 500 mg tablet 500 mg PO DAILY 05/28/24 07/31/24 Unknown History Allergies Allergy/AdvReac Type Severity Reaction Status Date / Time gabapentin AdvReac Mild Exsessive Verified 02/02/25 19:49 Sleepiness Review of Systems Review of Systems: As reviewed above in HPI [facility] Past Medical History Medical History Pruritus (~06/27/24) Gastroesophageal reflux disease Hypothyroidism Type 2 diabetes mellitus Chronic kidney disease, stage 3 Depression Anxiety Cervical spondylosis Vertigo Vitamin D deficiency Arthritis Degenerative lumbar spinal stenosis Hyperlipidemia Post-polio syndrome Radiculopathy due to disorder of intervertebral disc of lumbar spine Chronic back pain Surgical History Surgical History History of bilateral carpal tunnel release History of tonsillectomy History of back surgery History of right cataract surgery Family History Family History Other Cancer Diabetes mellitus Social History Social History Social History: Surrogate medical decision maker: Judit Lopez, daughter. Code status: Full code. Smoking status: Never smoker Second hand tobacco smoke exposure: No Alcohol intake: never Substance use: never Substance use type: does not use Do You Feel Safe in your Home?: Yes Lack of Transportation: No Lack of Food: Never True Current Housing: I Have Housing Concerned About Future Housing: No Difficulty Paying Gas/Electric Bills: No Difficulty Paying for Meds: No Currently Unemployed: No Education: High School Diploma/GED Difficulty w/ Childcare or Family Care: No Additional living arrangements comments: Lives with daughter in [place]. Spiritual care concerns: No Exam Narrative: GENERAL: [Well-appearing, well-nourished, and in no acute distress.] HEAD: [Normocephalic, atraumatic.] EYES: [PERRLA and EOMI.] ENT: Nares clear, no rhinorrhea or epistaxis. Mucous membranes moist. NECK: Supple. CHEST: [Clear to auscultation. No respiratory distress.] HEART: [Regular rate and rhythm]. No murmur heard. [Normal peripheral pulses.] ABDOMEN: [Soft, nondistended], [nontender], [No rigidity or guarding] EXTREMITIES: Normal range of motion. [No edema.] SKIN: Warm, dry, no rash. NEURO: [No focal deficits]. Alert and oriented [x3.] PSYCH: [Normal mood and affect.] Course Vital Signs Vital signs: Vital Signs Temperature 36.6 C 02/02/25 19:57 Pulse Rate 84 02/02/25 19:57 Respiratory Rate 16 02/02/25 19:57 Blood Pressure 191/111 H 02/02/25 19:57 Pulse Oximetry 99 02/02/25 19:57 Oxygen Delivery Room Air 02/02/25 19:57 Temperature 36.5 C 02/03/25 00:21 Pulse Rate 77 02/03/25 02:48 Respiratory Rate 18 02/03/25 02:48 Blood Pressure 185/88 H 02/03/25 02:48 Pulse Oximetry 99 02/03/25 02:48 Oxygen Delivery Room Air 02/02/25 19:57 MDM - Back Pain/Injury MDM Narrative Medical decision making narrative: 84-year-old female with a history of polio, type 2 diabetes, hyperlipidemia, CKD. Chronic back pain. Patient presents to the emergency depart with low back pain as well as hypertension. She is not complaining any neurological complaints, no chest pain, shortness a breath, nausea, vomiting, abdominal pain. She has a history of hypertension but not taking any blood pressure medications. No neurological complaints on her examination. She has no symptoms at this time and was checking in Urgent Care earlier for concerns or maybe a urinary infection causing her low back pain. She has strong symmetric pulses and otherwise appears well. Suspicion for hypertensive urgency or emergency is low. Patient has chronic low back pain as well as previous elevations or blood pressure and not taking any blood pressure medications. Patient most likely has asymptomatic hypertension given her age and risk factors a broad workup was ordered this time. CBC, CMP, COVID fluid RSV, chest x-ray, EKG, troponin, urinalysis and a CT of the brain was ordered. CT angiography of the chest abdomen pelvis was ordered for her blood pressure in the low 200s systolic. Patient has no leukocytosis. Chest x-ray shows some atelectasis but no signs of consolidation or infection. EKG shows no acute ST segment concerns. CT angiography shows no dissection, pulmonary embolism or any acute aortic process. No acute intra-abdominal findings. Spine is intact. CT of the head shows unremarkable findings. She was given a dose of amlodipine here and will be started on amlodipine 10 mg daily until she can see her primary care provider for her asymptomatic hypertensive urgency. Her laboratory studies are unremarkable and she is safely discharged home at this time with return precautions with family members agreeable with plan. Medical Records Attestation: I reviewed the patient's medical records. Lab Data Attestation: I reviewed the patient's lab results. 02/02/25 20:43 02/02/25 20:43 Labs: Lab Results 02/02/25 02/02/25 Range/Units 20:40 20:43 WBC 9.5 (4.5-10.0) K/mm3 RBC 4.40 (4.2-5.4) M/mm3 Hgb 10.5 L (12.0-15.0) g/dL Hct 33.8 L (37.0-47.0) % MCV 76.8 L (80-100) fl MCH 23.9 L (26-34) pg MCHC 31.1 L (32-36) g/dl RDW 14.9 H (11.5-14.5) % Plt Count 435 H (150-375) k/mm3 MPV 10.0 (7.4-10.4) fl Immature Gran % (Auto) 0.2 (0-0.5) % Neut % (Auto) 59.8 (45.5-73.1) % Lymph % (Auto) 28.9 (18.3-44.2) % [place] % (Auto) 7.2 (2.6-8.5) % Eos % (Auto) 2.6 (0-4.4) % Baso % (Auto) 1.3 H (0.2-1.2) % Lymph # (Auto) 2.73 (0.9-3.2) K/mm3 [place] # (Auto) 0.7 H (0.1-0.6) K/mm3 Eos # (Auto) 0.3 (0-0.3) K/mm3 Baso # (Auto) 0.1 (0.0-0.1) K/mm3 Abs Immat Gran (auto) 0.02 (0.00-0.031) K/mm3 Absolute Neuts (auto) 5.7 (1.3-6.7) K/mm3 Absolute Nucleated RBC 0.000 (0.0-0.012) K/mm3 Nucleated RBC % 0.0 (0.0-0.2) % Sodium 137 (137-145) mmol/L Potassium 3.7 (3.4-5.0) mmol/L Chloride 103 (98-107) mmol/L Carbon Dioxide 20 L (22-30) mmol/L Anion Gap 14 H (4-12) mmol/L BUN 32 H D (7-17) mg/dL Creatinine 1.05 H (0.7-1.0) mg/dL Estim Creat Clear Calc Not Reportable Estimated GFR 50 L (59 - ) Glucose 144 H (65-110) mg/dL Calcium 9.5 (8.4-10.2) mg/dL Total Bilirubin 0.5 (0.2-1.3) mg/dL AST 41 H (14-36) U/L ALT 19 (6-35) U/L Alkaline Phosphatase 115 (38-126) U/L Total Protein 8.0 (6.3-8.2) g/dL Albumin 4.9 (3.5-5.1) g/dL Influenza A (RT-PCR) Negative (Negative) Influenza B (RT-PCR) Negative (Negative) RSV (RT-PCR) Negative (Negative) SARS-CoV-2 RNA (RT-PCR) Negative (Negative) Discharge Plan Discharge Clinical Impression: Asymptomatic hypertensive urgency, Chronic back pain Patient Disposition: Home Condition: Stable Instructions: Antibiotic Form, Acute Low Back Pain (ED), Hypertension (ED) Additional Instructions: We will start her on a blood pressure medication to take daily. We have sent this prescription to your pharmacy. Call your primary care provider to establish a follow-up appointment regarding her blood pressure. No signs of any concern for urgent or emergencies based on your workup here in your imaging studies were reassuring. Return if you have any experienced chest pain, shortness a breath, intractable headaches, abdominal pain or any other concerns such as neurological deficits otherwise follow-up with regular doctor. Patient Language: Bahraini Prescriptions: New amlodipine 10 mg tablet 10 mg PO DAILY Qty: 30 0RF No Action hydroxyzine HCl 25 mg tablet 12.5 - 25 mg PO TID PRN (Reason: itching) Qty: 90 2RF acetaminophen 500 mg Tablet 500 mg PO DAILY citalopram 20 mg tablet 20 mg PO DAILY Qty: 30 11RF ergocalciferol (vitamin D2) [Vitamin D2] 1,250 mcg (50,000 unit) capsule 1,250 mcg PO .every other week Qty: 6 3RF metformin [Glucophage XR] 500 mg tablet extended release 24 hr 500 mg PO DAILY Qty: 30 5RF levothyroxine 25 mcg tablet 25 mcg PO DAILY Qty: 90 3RF Follow-up/Referrals: Jessica Chen NP [Primary Care Provider] - Time of Disposition: 06:21
[2025-02-03] MEDS: amLODIPine BESYLATE 10 MG TABLET PO (06:33)
== END 2025-02-03 07:35 | disposition home or self-care (01) ==
PROVIDERS: Emergency Provider Student in an Organized Health Care Education/Training Program; PCP Nurse Practitioner Family
DX: I12.9 Hypertensive chronic kidney disease with stage 1 through stage 4 chronic kidney disease, or unspecified chronic kidney disease (principal); E11.22 Type 2 diabetes mellitus with diabetic chronic kidney disease; N18.30 Chronic kidney disease, stage 3 unspecified; G89.29 Other chronic pain; M54.50 Low back pain, unspecified; E03.9 Hypothyroidism, unspecified; E78.5 Hyperlipidemia, unspecified; Z86.12 Personal history of poliomyelitis; Z79.899 Other long term (current) drug therapy; Z20.822 Contact with and (suspected) exposure to COVID-19
CPT/HCPCS: 36415; 70450; 71046; 71275; 74174; 80053; 85025; 87637; 93005; 96360; 99284; A9270; J7120; Q9967

== ENCOUNTER 2025-09-10 14:05 | Inpatient (IN) | payer MEDICARE, BC, SELFPAY ==
[2025-09-10] VITALS (11 sets, daily range): BP systolic 127–162; BP diastolic 73–104; PULSE 67–73; RESP 15–20; TEMP 36.2–37; O2SAT 94–100; BMI 25.4; BMI 25.5
[2025-09-10 16:12] LABS: Hematocrit 32.7 % (37.0-47.0); Hemoglobin 10.6 g/dL (12.0-15.0); Immature Granulocyte Percent A 0.3 % (0-0.5); Lymphocytes Absolute Auto 3.25 K/mm3 (0.9-3.2); Mean Corpuscular HGB Conc 32.4 g/dl (32-36); Mean Corpuscular Hemoglobin 24.9 pg (26-34); Mean Corpuscular Volume 76.9 fl (80-100); Nucleated Red Blood Cells Absolute Auto 0.000 K/mm3 (0.0-0.012); Nucleated Red Blood Cells Perc 0.0 % (0.0-0.2); Platelet Count Result 389 k/mm3 (150-375); Red Blood Count 4.25 M/mm3 (4.2-5.4); White Blood Count 10.2 K/mm3 (4.5-10.0)
[2025-09-10 16:27] LABS: INR 0.9; Prothrombin Time 12.4 Seconds (11.1-14.7)
[2025-09-10 16:28] LABS: Partial Thromboplastin Time 28.5 Seconds (22.3-36.8)
[2025-09-10 16:33] LABS: Alanine Aminotransferase 18 U/L (6-35); Albumin Level 4.8 g/dL (3.5-5.1); Alkaline Phosphatase 108 U/L (38-126); Anion Gap 15 mmol/L (4-12); Aspartate Amino Transferase 31 U/L (14-36); Bilirubin,Total 0.4 mg/dL (0.2-1.3); Blood Urea Nitrogen 19 mg/dL (7-17); Calcium 9.5 mg/dL (8.4-10.2); Carbon Dioxide 20 mmol/L (22-30); Chloride 102 mmol/L (98-107); Estimated Glomerular Filt Rate 48; Glucose 172 mg/dL (65-110); Lipase 65 U/L (23-300); Potassium 3.8 mmol/L (3.4-5.0); Sodium 137 mmol/L (137-145); Total Protein 8.0 g/dL (6.3-8.2)
--- NOTE | 2025-09-10 16:40 | ED_ITS ---
HPI - General Adult General Chief complaint: Nausea/Vomiting/Diarrhea Stated complaint: N/V, black stool Time Seen by Provider: 09/10/25 15:49 History of Present Illness HPI narrative: 85-year-old female present to the emergency department for evaluation for nausea vomiting and diarrhea. Patient started having coffee-ground emesis last night and then had dark tarry stools this morning. Patient does have prior history of a GI bleed and did require transfusion at that time. Patient has been taking pantoprazole. Patient has no blood thinners on her medication list. Patient does have some upper abdominal pain with this. Related Data Home Medications ?Medication ?Instructions ?Recorded ?Confirmed ?Last Taken ?Type acetaminophen 500 mg tablet 500 mg PO DAILY 05/28/24 1 11/11/24 09/10/25 History Allergies Allergy/AdvReac Type Severity Reaction Status Date / Time gabapentin AdvReac Mild Exsessive Verified 09/10/25 15:48 Sleepiness Review of Systems 2 Review of Systems: All systems reviewed & are unremarkable except as noted in HPI and below PMFSH Past Medical History Medical History (Updated 09/10/25 @ 17:21 by Genaro Bolton MD) Cough Shortness of breath on exertion Hypertension Urinary frequency Pruritus (~06/27/24) Gastroesophageal reflux disease Hypothyroidism Type 2 diabetes mellitus Chronic kidney disease, stage 3 Depression Anxiety Cervical spondylosis Vertigo Vitamin D deficiency Arthritis Degenerative lumbar spinal stenosis Hyperlipidemia Post-polio syndrome Radiculopathy due to disorder of intervertebral disc of lumbar spine Chronic back pain Surgical History Surgical History History of bilateral carpal tunnel release History of tonsillectomy History of back surgery History of right cataract surgery Family History Family History Other Cancer Diabetes mellitus Social History Social History Social History: Surrogate medical decision maker: Judit Lopez, daughter. Code status: Full code. Smoking status: Never smoker Second hand tobacco smoke exposure: No Alcohol intake: never Substance use: never Substance use type: does not use Lack of Transportation: No Lack of Food: Never True Current Housing: I Have Housing Concerned About Future Housing: No Difficulty Paying Gas/Electric Bills: No Difficulty Paying for Meds: No Currently Unemployed: No Education: High School Diploma/GED Difficulty w/ Childcare or Family Care: No Additional living arrangements comments: Lives with daughter in [place]. Spiritual care concerns: No Exam 2 Narrative: APPEARANCE: Well appearing, no pain, no distress, well-nourished. HEAD: normocephalic, atraumatic. EYES: PERRLA/EOMI, conjunctivae clear. NOSE: Normal no drainage EARS:TMS clear with good light reflex. THROAT: Pharynx clear, no exudate. NECK: Supple. No adenopathy, no masses. RESPIRATORY: Airway patent, respirations nonlabored. Clear to auscultation bilaterally, no rales, rhonchi, wheezing. CARDIOVASCULAR: Regular rate and rhythm without murmurs rubs or gallops. ABDOMINAL: Soft, nontender, nondistended, normal bowel sounds MUSCULOSKELETAL: Moves all extremities. Strength/ROM intact, No edema, No calf tenderness. NEURO: Alert. Cranial nerves II through XII intact. Grossly intact SKIN: Warm, dry. Normal Color rectal exam: Hemoccult positive melena stool Course Vital Signs Vital signs: Vital Signs Temperature 97.9 F 09/10/25 14:08 Pulse Rate 71 09/10/25 14:08 Respiratory Rate 18 09/10/25 14:08 Blood Pressure 127/83 09/10/25 14:08 Pulse Oximetry 100 09/10/25 14:08 Oxygen Delivery Room Air 09/10/25 14:08 Temperature 98.0 F 09/10/25 15:48 Pulse Rate 70 09/10/25 18:22 Respiratory Rate 15 09/10/25 18:22 Blood Pressure 145/73 H 09/10/25 18:22 Pulse Oximetry 99 09/10/25 18:22 Oxygen Delivery Room Air 09/10/25 15:48 [facility] MDM Narrative Medical decision making narrative: 85-year-old female with prior history GI bleed presents emergency department for evaluation for coffee-ground emesis at and melena stools. 0 patient is afebrile with a white blood cell count of 10.2 and hemoglobin of 10.6, this hemoglobin is similar to her baseline. Patient's INR 0.9. Patient's creatinine is 1.09 which is similar to her baseline. Urine was concerning for urinary tract infection, urine culture was ordered patient was started on IV Rocephin. Patient's blood type is A positive. Case was discussed with GI and they will see her as consult. Patient family were updated the results of the workup and plan for admission. Case was discussed with hospitalist patient was stable at time of admission. Differential Diagnosis Differential Diagnosis: Upper GI bleed, esophagitis, gastritis, lower GI bleed Lab Data MDM Lab Attestation statement: I personally reviewed the patient's lab results. 09/10/25 16:07 09/10/25 16:07 Labs: Lab Results 09/10/25 09/10/25 Range/Units 16:07 16:48 WBC 10.2 H (4.5-10.0) K/mm3 RBC 4.25 (4.2-5.4) M/mm3 Hgb 10.6 L (12.0-15.0) g/dL Hct 32.7 L (37.0-47.0) % MCV 76.9 L (80-100) fl MCH 24.9 L (26-34) pg MCHC 32.4 (32-36) g/dl RDW 16.0 H (11.5-14.5) % Plt Count 389 H (150-375) k/mm3 MPV 9.5 (7.4-10.4) fl Immature Gran % (Auto) 0.3 (0-0.5) % Neut % (Auto) 56.5 (45.5-73.1) % Lymph % (Auto) 31.8 (18.3-44.2) % [place] % (Auto) 7.1 (2.6-8.5) % Eos % (Auto) 3.0 (0-4.4) % Baso % (Auto) 1.3 H (0.2-1.2) % Lymph # (Auto) 3.25 H (0.9-3.2) K/mm3 [place] # (Auto) 0.7 H (0.1-0.6) K/mm3 Eos # (Auto) 0.3 (0-0.3) K/mm3 Baso # (Auto) 0.1 (0.0-0.1) K/mm3 Abs Immat Gran (auto) 0.03 (0.00-0.031) K/mm3 Absolute Neuts (auto) 5.8 (1.3-6.7) K/mm3 Absolute Nucleated RBC 0.000 (0.0-0.012) K/mm3 Nucleated RBC % 0.0 (0.0-0.2) % PT 12.4 (11.1-14.7) Seconds INR 0.9 APTT 28.5 (22.3-36.8) Seconds Sodium 137 (137-145) mmol/L Potassium 3.8 (3.4-5.0) mmol/L Chloride 102 (98-107) mmol/L Carbon Dioxide 20 L (22-30) mmol/L Anion Gap 15 H (4-12) mmol/L BUN 19 H D (7-17) mg/dL Creatinine 1.09 H (0.7-1.0) mg/dL Estim Creat Clear Calc Not Reportable Estimated GFR 48 L (59 - ) Glucose 172 H (65-110) mg/dL Calcium 9.5 (8.4-10.2) mg/dL Total Bilirubin 0.4 (0.2-1.3) mg/dL AST 31 (14-36) U/L ALT 18 (6-35) U/L Alkaline Phosphatase 108 (38-126) U/L Total Protein 8.0 (6.3-8.2) g/dL Albumin 4.8 (3.5-5.1) g/dL Lipase 65 (23-300) U/L Urine Color Yellow (Yellow) Urine Appearance Cloudy H (Clear) Urine pH 5.0 (5.0-9.0) Ur Specific [place] 1.022 (1.001-1.035) Urine Protein 2+ H (Negative) mg/dL Urine Glucose (UA) Negative (Negative) mg/dL Urine Ketones Trace H (Negative) mg/dL Ur Blood (Man) Negative (Negative) Urine Nitrate Negative (Negative) Urine Bilirubin Negative (Negative) Urine Urobilinogen 0.2 (<2.0) mg/dL Leukocyte Esterase Rfl 2+ H (Negative) MUNIRA/UL Urine RBC 0-2 (0-2) /hpf Urine WBC 51-100 H (0-3) /hpf Ur Squamous Epith Cells Few (Few) /hpf Urine Bacteria None seen /hpf Urine Casts 0-2 Blood Type A Positive Antibody Screen Negative Discharge Plan Discharge Clinical Impression: Acute upper GI bleed, Melena, Urinary tract infection Patient Disposition: Still a Patient Condition: Serious
[2025-09-10 16:57] LABS: Add Urine Microscopic? YES; Appearance Urine Cloudy (Clear); Glucose Urine UA Negative (Negative); Leukocyte Esterase Ur 2+ LEU/UL (Negative); Nitrate Urine Negative (Negative); Non Pathogenic Casts 0-2; Specific Grav Ur 1.022 (1.001-1.035)
[2025-09-10] MEDS: LACTATED RINGERS 1,000 ML 100 ML IV CONT (17:17)
[2025-09-10] MEDS: PANTOPRAZOLE SODIUM IV 40 MG VIAL IV PUSH ×2 (17:17→21:18)
--- NOTE | 2025-09-10 18:19 | PC.NURSE ---
per EDP, no blood cultures are needed at this time
--- NOTE | 2025-09-10 18:35 | PC.NURSE ---
pt IV fluids were paused to be given her IV abx
[2025-09-10] MEDS: cefTRIAXone 1 GM in SODIUM CHLORIDE 0.9% IV 50 ML 100 ML IVPB (18:36)
--- NOTE | 2025-09-10 21:27 | WPCEDHO ---
ED Hand Off Checklist All vitals saved: Yes IV Site documented: Yes All med administrations documented: Yes Triage Note Triage Note Patient presents with black 09/10/25 15:48 stool and emesis that started this am. patient has history of GI bleed and has had to receive blood transfusions in the past. patient denies blood thinners. VSS. this RN agrees with triage assessment pt is A&OX4 Allergies gabapentin Adverse Reaction (Mild, Verified 09/10/25 15:48) Exsessive Sleepiness Family History (Last Reviewed 05/31/25 @ 15:13 by Aaron Estrada [facility]) Other Cancer Diabetes mellitus Active Medications including assessments/comments Lactated Ringer's (Lr - Lactated Ringers Iv) 1,000 mls @ 100 mls/hr IV CONT .Q10H STA Stop: 09/11/25 02:38 Last Admin: 09/10/25 17:17 Dose: 100 mls/hr Documented By: LAWANDA Infusion/Titration Document 09/10/25 17:17 LAWANDA (Rec: 09/10/25 17:17 LAWANDA [id number]) Intake IV Site Peripheral Access Left Forearm Container Volume 1,000 Waste Amount 0 Dosing Infusion Rate 100 Cumulative Dose Not Applicable Increase/Decrease Started Elapsed Time Elapsed Time ( 0m minutes) Pantoprazole Sodium (Pantoprazole Sodium Iv 40 Mg Vial) 40 mg IV PUSH Q12HR SAMUEL Last Admin: 09/10/25 21:18 Dose: 40 mg Documented By: HATTIE Administered/Completed Medications Discontinued Medications Ceftriaxone Sodium 1 gm/ (Sodium Chloride) 50 mls @ 100 mls/hr IVPB ONCE STA Stop: 09/10/25 17:49 Last Infusion: 09/10/25 19:06 Dose: Infused Documented By: Admin: 09/10/25 18:36 Dose: 100 mls/hr Documented By: LAWANDA Pantoprazole Sodium (Pantoprazole Sodium Iv 40 Mg Vial) 40 mg IV PUSH ONCE STA Stop: 09/10/25 16:38 Last Admin: 09/10/25 17:17 Dose: 40 mg Documented By: LAWANDA Notes 09/10/25 18:35 Nurse Note by Madison Luna pt IV fluids were paused to be given her IV abx Initialized on 09/10/25 18:35 - END OF NOTE 09/10/25 18:19 Nurse Note by Madison Luna per EDP, no blood cultures are needed at this time Initialized on 09/10/25 18:19 - END OF NOTE Interventions/Assessments IV / Saline Lock, Insert Start: 09/10/25 14:15 Freq: STAT Status: Active Protocol: Document 09/10/25 16:23 KNW (Rec: 09/10/25 16:23 KNW [id number]) IV Assessment Peripheral Access Left Forearm IV Catheter Access Initiated IV Insertion Date 09/10/25 IV Insertion Time 16:23 Catheter Gauge 18 IV Insertion 1 Attempts Ultrasound Used for No Placement IV Site Assessment WNL IV Care and WNL Maintenance PA: Gastrointestinal Assessment Start: 09/10/25 14:06 Freq: Status: Active Protocol: Document 09/10/25 15:51 KNW (Rec: 09/10/25 15:52 KNW [id number]) GI Assessment Gastrointestinal Blood in Stool,Nausea,Vomiting Symptoms Description Soft,Non-Tender All Quadrants Bowel Sounds Active Date of Last Bowel 09/10/25 Movement Stool Black Characterisitics Nausea/Vomiting Assessment Nausea Frequency Intermittent Emesis Frequency Intermittent Emesis Description Coffee Grounds Last Vital Signs Temperature 98.6 F 09/10/25 21:16 Pulse Rate 67 09/10/25 21:16 Respiratory Rate 20 09/10/25 21:16 Pulse Oximetry 94 09/10/25 21:16 Blood Pressure 154/80 H 09/10/25 21:16 Blood Pressure Mean 104 09/10/25 21:16 Blood Pressure Position Supine 09/10/25 21:16 Oxygen Delivery Room Air 09/10/25 15:48 Weight 56.9 kg 09/10/25 15:48 Last Result - Abnormals Only WBC 10.2 K/mm3 (4.5-10.0) H 09/10/25 16:07 Hgb 10.6 g/dL (12.0-15.0) L 09/10/25 16:07 Hct 32.7 % (37.0-47.0) L 09/10/25 16:07 MCV 76.9 fl (80-100) L 09/10/25 16:07 MCH 24.9 pg (26-34) L 09/10/25 16:07 RDW 16.0 % (11.5-14.5) H 09/10/25 16:07 Plt Count 389 k/mm3 (150-375) H 09/10/25 16:07 Baso % (Auto) 1.3 % (0.2-1.2) H 09/10/25 16:07 Lymph # (Auto) 3.25 K/mm3 (0.9-3.2) H 09/10/25 16:07 [place] # (Auto) 0.7 K/mm3 (0.1-0.6) H 09/10/25 16:07 Carbon Dioxide 20 mmol/L (22-30) L 09/10/25 16:07 Anion Gap 15 mmol/L (4-12) H 09/10/25 16:07 BUN 19 mg/dL (7-17) H D 09/10/25 16:07 Creatinine 1.09 mg/dL (0.7-1.0) H 09/10/25 16:07 Estimated GFR 48 (59-) L 09/10/25 16:07 Glucose 172 mg/dL (65-110) H 09/10/25 16:07 Urine Appearance Cloudy (Clear) H 09/10/25 16:48 Urine Protein 2+ mg/dL (Negative) H 09/10/25 16:48 Urine Ketones Trace mg/dL (Negative) H 09/10/25 16:48 Leukocyte Esterase Rfl 2+ MUNIRA/UL (Negative) H 09/10/25 16:48 Urine WBC 51-100 /hpf (0-3) H 09/10/25 16:48 Most Recent Suicide Severity Rating Suicide Severity Rating NO RISK INDICATED 09/10/25 15:48
[2025-09-10 22:13] LABS: Hematocrit 30.4 % (37.0-47.0); Hemoglobin 9.8 g/dL (12.0-15.0)
[2025-09-11] VITALS (12 sets, daily range): BP systolic 117–141; BP diastolic 46–76; PULSE 57–72; RESP 16–22; TEMP 36.3–37; O2SAT 93–98
--- NOTE | 2025-09-11 00:17 | P.HP_ITS ---
H&P: HPI History of Present Illness Date/Time: 09/11/25 00:17 Chief Complaint: Black stools and coffee-ground emesis Narrative: 85-year-old female with a past medical history post-polio syndrome, type 2 diabetes mellitus on oral medications, chronic kidney disease stage III, GERD and prior GI bleed requiring transfusion in the distant past who presented to the ER due to melenic stools and coffee-ground emesis. She reports she began having hematemesis on the evening of the . The following afternoon she started having melenic stools. She reports she had similar symptoms many years ago when she had a prior upper GI bleed. She denies taking any blood thinners or NSAIDs. She does have intermittent GERD symptoms but has not noticed an increase from baseline. She has noted epigastric pain that started just prior to onset of vomiting. Pain is not reproducible. She has not had any other bloody stools since arrival to the hospital. Her stool was strongly occult positive in the ER. She denies any chest pain or shortness of breath. She has not had any increased fatigue. She reports that she has had great urine output since she received 1 L of LR in the ER. At the time of my evaluation the patient has pure wick catheter in place and has approximately 800 mL of nearly clear in the canister. She reports chronic urinary frequency but denies any recent dysuria, hematuria over increased urgency besides for after receiving fluids in the ER. He has not been having any fevers or chills. She reports intermittent pruritus that occurs at random times. It usually occurs at night and when it does occur it will last 2 or 3 days and then resolve. She takes hydroxyzine at home for with little relief in symptoms. She states that the symptoms are worse if she gets hot so when the symptoms started while she was here tonight she stripped down in bed and had the nurses turned the air conditioning on. She does not have a rash but reports generalized dry skin on her shoulders and back. Review of Systems 2 Review of Systems: 12 systems were reviewed with pertinent positives and negatives per HPI. Except as documented in the HPI, all other systems were reviewed and are negative. [facility] Past Medical History Medical History C. difficile diarrhea (05/2024) Hypertension Pruritus (~06/27/24) Gastroesophageal reflux disease Hypothyroidism Type 2 diabetes mellitus Chronic kidney disease, stage 3 Depression Anxiety Cervical spondylosis Vertigo Vitamin D deficiency Arthritis Degenerative lumbar spinal stenosis Hyperlipidemia Post-polio syndrome Radiculopathy due to disorder of intervertebral disc of lumbar spine Chronic back pain Surgical History Surgical History Hx of decompressive lumbar laminectomy History of bilateral carpal tunnel release History of tonsillectomy History of back surgery History of right cataract surgery Family History Family History Mother Diabetes mellitus Cirrhosis of liver Sibling Alzheimer dementia Sibling Cancer Social History Social History Social History: Code status: DNR/DNI Surrogate medical decision maker: Judit Lopez, daughter Smoking status: Never smoker Second hand tobacco smoke exposure: No Alcohol intake: never Substance use: never Substance use type: does not use Lack of Transportation: No Lack of Food: Never True Current Housing: I Have Housing Concerned About Future Housing: No Difficulty Paying Gas/Electric Bills: No Difficulty Paying for Meds: No Currently Unemployed: Decline to Answer Education: High School Diploma/GED Difficulty w/ Childcare or Family Care: Decline to Answer Additional living arrangements comments: Lives with daughter in [place]. Spiritual care concerns: No Meds Home Medications and Allergies Home Medications ?Medication ?Instructions ?Recorded ?Confirmed ?Type acetaminophen 500 mg tablet 500 mg PO DAILY 05/28/24 1 11/11/24 History ergocalciferol (vitamin D2) 1,250 1,250 mcg PO .every other week #6 10/17/24 09/10/25 Rx mcg (50,000 unit) capsule (Vitamin caps D2) levothyroxine 25 mcg tablet 25 mcg PO DAILY #90 tabs 0 01/12/25 09/10/25 Rx ezetimibe 10 mg tablet (Zetia) 10 mg PO DAILY #30 tabs 05/31/25 09/10/25 Rx ferrous sulfate 325 mg (65 mg 325 mg PO .3x/week #36 t abs 05/31/25 09/10/25 Rx iron) tablet mecobalamin (vitamin B12) 1,000 1,000 mcg sublingual D AILY #90 tabs 05/31/25 09/10/25 Rx mcg disintegrating tablet,sublingual amlodipine 10 mg tablet 10 mg PO DAILY #30 tabs 05/1409/10/25 Rx citalopram 20 mg tablet 20 mg PO HS 09/10/25 5 History hydroxyzine HCl 25 mg tablet 25 mg PO TID PRN itching 09/10/25 09/10/25 History metformin 500 mg tablet,extended 500 mg PO HS 09/10/25 09/10/25 History release 24 hr (Glucophage XR) pantoprazole 40 mg tablet,delayed 40 mg PO HS 09/10/25 09/10/25 History release Allergies Allergy/AdvReac Type Severity Reaction Status Date / Time gabapentin AdvReac Mild Exsessive Verified 09/10/25 22:14 Sleepiness Vital Signs Vital Signs - 24 hr 09/10/25 14:08 09/10/25 15:48 09/10/25 16:24 Temperature 97.9 F 98.0 F Pulse Rate 71 68 69 Respiratory Rate 18 19 16 Blood Pressure 127/83 158/82 H 145/78 H Pulse Oximetry 100 100 98 Oxygen Delivery Room Air Room Air 09/10/25 17:12 09/10/25 18:22 09/10/25 19:01 Temperature Pulse Rate 72 70 72 Respiratory Rate 16 15 17 Blood Pressure 150/81 H 145/73 H 162/82 H Pulse Oximetry 97 99 99 Oxygen Delivery 09/10/25 20:01 09/10/25 20:31 09/10/25 21:16 Temperature 98.6 F Pulse Rate 70 70 67 Respiratory Rate 16 18 20 Blood Pressure 152/104 H 157/73 H 154/80 H Pulse Oximetry 97 97 94 Oxygen Delivery 09/10/25 21:31 09/10/25 22:07 Temperature 98.6 F 97.2 F L Pulse Rate 73 73 Respiratory Rate 20 18 Blood Pressure 154/80 H 132/73 Pulse Oximetry 99 96 Oxygen Delivery Exam 2 Narrative: Weight 57.4 kg BMI 25.6 Const: Other: Overweight, no acute distress, appears stated age, lying naked in bed HENMT: Other: Head is normocephalic atraumatic, mucous membranes are tacky, no oral pharyngeal erythema, upper dentures in place, edentulous in lower jaw Eyes: Other: Pupils are equal and reactive, no scleral icterus, no conjunctival pallor Neck: Other: No JVD, large neck circumference Resp: Other: Clear to auscultation bilaterally, no increased work of breathing Cardio: Other: Faint cardiac murmur, regular rate, regular rhythm, 2+ bilateral radial pedal pulses GI: Other: Soft, nontender, normoactive bowel sounds distended : Other: Pure wick catheter in place Skin: Other: No pallor, non jaundice, dry skin to the back and shoulders, no rash Neuro: Other: Alert orient x4, speech is clear, no facial asymmetry, no localizing neurologic deficits noted during the course of conversation Extrem: Other: No clubbing, cyanosis or edema Psych: Other: Appropriate mood and affect, pleasant and cooperative, judgment and insight intact Results Labs Labs: Laboratory Tests 09/10/25 22:08 09/10/25 16:07 09/10/25 09/10/25 09/10/25 16:07 16:48 22:08 WBC 10.2 H RBC 4.25 Hgb 10.6 L 9.8 L Hct 32.7 L 30.4 L MCV 76.9 L MCH 24.9 L MCHC 32.4 RDW 16.0 H Plt Count 389 H MPV 9.5 Immature Gran % (Auto) 0.3 Neut % (Auto) 56.5 Lymph % (Auto) 31.8 [place] % (Auto) 7.1 Eos % (Auto) 3.0 Baso % (Auto) 1.3 H Lymph # (Auto) 3.25 H [place] # (Auto) 0.7 H Eos # (Auto) 0.3 Baso # (Auto) 0.1 Abs Immat Gran (auto) 0.03 Absolute Neuts (auto) 5.8 Absolute Nucleated RBC 0.000 Nucleated RBC % 0.0 PT 12.4 INR 0.9 APTT 28.5 Sodium 137 Potassium 3.8 Chloride 102 Carbon Dioxide 20 L Anion Gap 15 H BUN 19 H D Creatinine 1.09 H Estim Creat Clear Calc Not Reportable Estimated GFR 48 L Glucose 172 H Calcium 9.5 Total Bilirubin 0.4 AST 31 ALT 18 Alkaline Phosphatase 108 Total Protein 8.0 Albumin 4.8 Lipase 65 Urine Color Yellow Urine Appearance Cloudy H Urine pH 5.0 Ur Specific [place] 1.022 Urine Protein 2+ H Urine Glucose (UA) Negative Urine Ketones Trace H Ur Blood (Man) Negative Urine Nitrate Negative Urine Bilirubin Negative Urine Urobilinogen 0.2 Leukocyte Esterase Rfl 2+ H Urine RBC 0-2 Urine WBC 51-100 H Ur Squamous Epith Cells Few Urine Bacteria None seen Urine Casts 0-2 Blood Type A Positive Antibody Screen Negative Quality VTE Prophylaxis VTE prophylaxis: mechanical ordered (SCDs) Assessment and Plan Assessment and plan (1) Acute upper GI bleed: Code(s): K92.2 - Gastrointestinal hemorrhage, unspecified Status: Acute (2) Melena: Code(s): K92.1 - Melena Status: Acute (3) Sterile pyuria: Code(s): R82.81 - Pyuria Status: Acute Plan Patient coffee-ground emesis with melena likely due to upper GI bleed. Will hold patient's home Protonix and will place patient on Protonix 40 mg IV b.i.d.. Gastroenterology has been consulted and the patient is NPO for possible EGD evaluation. Will monitor H&H closely. The patient had recent iron studies which demonstrated iron deficiency anemia. She is on oral iron supplementation at home but she denies history of dark stools with taking her oral iron supplements. Will continue home oral iron supplementation on discharge. Patient has an abnormal urinalysis but no evidence of bacteria in her urine. She has chronic urinary frequency but no significant leukocytosis. These findings are most consistent with sterile pyuria. UTI seems less likely. Would like to avoid any unnecessary antibiotic therapy in the general population but is specially in this patient who has had a prior history of C diff colitis a little over a year ago. Will discontinue Rocephin was started in the ER. Hospitalist MIPS Advance Care Plan I have confirmed that the patient's Advanced Care Plan is present, code status is documented, or surrogate decision maker is listed in patient medical record.: Yes Medication Reconciliation I have utilized all available resources to obtain, update and review the patients current medications (includes all prescriptions, OTC, herbals, cannabis, and nutritional supplements).: Yes
[2025-09-11] MEDS: CITALOPRAM HYDROBROMIDE 20 MG TABLET PO ×2 (01:39→21:08)
[2025-09-11 04:37] LABS: Hematocrit 31.0 % (37.0-47.0); Hemoglobin 10.0 g/dL (12.0-15.0)
[2025-09-11] MEDS: LEVOTHYROXINE SODIUM 25 MCG TABLET PO (05:33)
--- NOTE | 2025-09-11 07:35 | P.PNIM_ITS ---
Assessment and Plan Assessment and Plan (1) Acute upper GI bleed: Code(s): K92.2 - Gastrointestinal hemorrhage, unspecified Status: Acute Assessment and Plan: * Monitor serum electrolytes, CBC, hemoglobin/hematocrit q.8 hours. If hemoglobin drops below 7 transfuse packed red blood cells * Monitor for bloody bowel movements,chest pain,SOB or dizziness/lightheadedness * GI consult * Pantoprazole BID * Diet: NPO * DVT Px: SCDs * Avoid anti-coagulations * EGD planning for today at 3:15 p.m. (2) Melena: Code(s): K92.1 - Melena Status: Acute Assessment and Plan: * see above (3) Sterile pyuria: Code(s): R82.81 - Pyuria Status: Acute Assessment and Plan: * UA abnormal although no evidence of bacteria * Hx of chronic urinary frequency but no significant leukocytosis * previous micro reviewed * started on Rocephin in ER - discontinue Subjective Date/time seen: 09/11/25 07:35 Interval history: 85-year-old female with a past medical history post-polio syndrome, type 2 diabetes mellitus on oral medications, chronic kidney disease stage III, GERD and prior GI bleed requiring transfusion in the distant past who presented to the ER due to melenic stools and coffee-ground emesis. 09/11/2025 Patient sitting comfortably In bed at time of examination. Denies any chest pain, shortness of breath nausea/ vomiting or abdominal pain at this time. Planning for EGD today at 3:15 p.m.. H&H stable, however hemoglobin low at 9.7. Review of Systems Review of Systems: 12 systems were reviewed with pertinent positives and negatives per HPI. Except as documented in the HPI, all other systems were reviewed and are negative. Exam Narrative: Weight 57.4 kg BMI 25.6 Objective Data Vital Signs Vital Signs: Vital Signs - 24 hr 09/10/25 14:08 09/10/25 15:48 09/10/25 16:24 Temperature 97.9 F 98.0 F Pulse Rate 71 68 69 Respiratory Rate 18 19 16 Blood Pressure 127/83 158/82 H 145/78 H Pulse Oximetry 100 100 98 Oxygen Delivery Room Air Room Air 09/10/25 17:12 09/10/25 18:22 09/10/25 19:01 Temperature Pulse Rate 72 70 72 Respiratory Rate 16 15 17 Blood Pressure 150/81 H 145/73 H 162/82 H Pulse Oximetry 97 99 99 Oxygen Delivery 09/10/25 20:01 09/10/25 20:31 09/10/25 21:16 Temperature 98.6 F Pulse Rate 70 70 67 Respiratory Rate 16 18 20 Blood Pressure 152/104 H 157/73 H 154/80 H Pulse Oximetry 97 97 94 Oxygen Delivery 09/10/25 21:31 09/10/25 22:07 09/11/25 00:00 Temperature 98.6 F 97.2 F L Pulse Rate 73 73 71 Respiratory Rate 20 18 Blood Pressure 154/80 H 132/73 Pulse Oximetry 99 96 Oxygen Delivery 09/11/25 04:00 09/11/25 04:31 09/11/25 06:00 Temperature 97.4 F L Pulse Rate 62 62 Respiratory Rate 18 Blood Pressure 141/67 H Pulse Oximetry 97 Oxygen Delivery Room Air Intake/Output Intake/Output: Intake & Output 09/08/25 09/09/25 09/10/25 09/11/25 23:59 23:59 23:59 23:59 Intake Total 50 1000 Output Total 1800 Balance 50 -800 Meds/Results Medications: Active Medications Generic Name Dose Route Start Last Admin Trade Name Freq PRN Reason Stop Dose Admin Amlodipine Besylate 10 mg 09/11/25 09:00 Amlodipine Besylate 10 Mg Tablet PO DAILY [facility] Citalopram Hydrobromide 20 mg 09/11/25 00:20 09/11/25 01:39 Citalopram Hydrobromide 20 Mg Tablet PO 20 mg HS SAMUEL Administration Hydroxyzine HCl 50 mg 09/11/25 05:34 Hydroxyzine Hcl 25 Mg Tablet PO TID PRN Itching Levothyroxine Sodium 25 mcg 09/11/25 06:30 09/11/25 05:33 Levothyroxine Sodium 25 Mcg Tablet PO 25 mcg DAILY@0630 SAMUEL Administration Pantoprazole Sodium 40 mg 09/10/25 21:00 09/10/25 21:18 Pantoprazole Sodium Iv 40 Mg Vial IV PUSH 40 mg Q12HR SAMUEL Administration Labs Labs: Laboratory Results - last 24 hr 09/10/25 09/10/25 09/10/25 16:07 16:48 22:08 WBC 10.2 H RBC 4.25 Hgb 10.6 L 9.8 L Hct 32.7 L 30.4 L MCV 76.9 L MCH 24.9 L MCHC 32.4 RDW 16.0 H Plt Count 389 H MPV 9.5 Immature Gran % (Auto) 0.3 Neut % (Auto) 56.5 Lymph % (Auto) 31.8 [place] % (Auto) 7.1 Eos % (Auto) 3.0 Baso % (Auto) 1.3 H Lymph # (Auto) 3.25 H [place] # (Auto) 0.7 H Eos # (Auto) 0.3 Baso # (Auto) 0.1 Abs Immat Gran (auto) 0.03 Absolute Neuts (auto) 5.8 Absolute Nucleated RBC 0.000 Nucleated RBC % 0.0 PT 12.4 INR 0.9 APTT 28.5 Sodium 137 Potassium 3.8 Chloride 102 Carbon Dioxide 20 L Anion Gap 15 H BUN 19 H D Creatinine 1.09 H Estim Creat Clear Calc Not Reportable Estimated GFR 48 L Glucose 172 H Calcium 9.5 Total Bilirubin 0.4 AST 31 ALT 18 Alkaline Phosphatase 108 Total Protein 8.0 Albumin 4.8 Lipase 65 Urine Color Yellow Urine Appearance Cloudy H Urine pH 5.0 Ur Specific [place] 1.022 Urine Protein 2+ H Urine Glucose (UA) Negative Urine Ketones Trace H Ur Blood (Man) Negative Urine Nitrate Negative Urine Bilirubin Negative Urine Urobilinogen 0.2 Leukocyte Esterase Rfl 2+ H Urine RBC 0-2 Urine WBC 51-100 H Ur Squamous Epith Cells Few Urine Bacteria None seen Urine Casts 0-2 Blood Type A Positive Antibody Screen Negative 09/11/25 04:31 WBC RBC Hgb 10.0 L Hct 31.0 L MCV MCH MCHC RDW Plt Count MPV Immature Gran % (Auto) Neut % (Auto) Lymph % (Auto) [place] % (Auto) Eos % (Auto) Baso % (Auto) Lymph # (Auto) [place] # (Auto) Eos # (Auto) Baso # (Auto) Abs Immat Gran (auto) Absolute Neuts (auto) Absolute Nucleated RBC Nucleated RBC % PT INR APTT Sodium Potassium Chloride Carbon Dioxide Anion Gap BUN Creatinine Estim Creat Clear Calc Estimated GFR Glucose Calcium Total Bilirubin AST ALT Alkaline Phosphatase Total Protein Albumin Lipase Urine Color Urine Appearance Urine pH Ur Specific [place] Urine Protein Urine Glucose (UA) Urine Ketones Ur Blood (Man) Urine Nitrate Urine Bilirubin Urine Urobilinogen Leukocyte Esterase Rfl Urine RBC Urine WBC Ur Squamous Epith Cells Urine Bacteria Urine Casts Blood Type Antibody Screen Quality VTE Prophylaxis VTE prophylaxis: mechanical ordered
[2025-09-11] MEDS: PANTOPRAZOLE SODIUM IV 40 MG VIAL IV PUSH (08:22)
[2025-09-11] MEDS: SODIUM CHLORIDE 0.9% IV 1,000 ML 100 ML IV CONT (08:29)
[2025-09-11 10:30] LABS: Hematocrit 30.3 % (37.0-47.0); Hemoglobin 9.7 g/dL (12.0-15.0)
[2025-09-11 11:31] LABS: Immature Granulocyte Percent A 0.5 % (0-0.5); Lymphocytes Absolute Auto 2.10 K/mm3 (0.9-3.2); Mean Corpuscular HGB Conc 31.8 g/dl (32-36); Mean Corpuscular Hemoglobin 24.6 pg (26-34); Mean Corpuscular Volume 77.2 fl (80-100); Nucleated Red Blood Cells Absolute Auto 0.000 K/mm3 (0.0-0.012); Nucleated Red Blood Cells Perc 0.0 % (0.0-0.2); Platelet Count Result 370 k/mm3 (150-375); Red Blood Count 3.99 M/mm3 (4.2-5.4); White Blood Count 8.5 K/mm3 (4.5-10.0)
[2025-09-11 11:42] LABS: Alanine Aminotransferase 13 U/L (6-35); Albumin Level 4.1 g/dL (3.5-5.1); Alkaline Phosphatase 96 U/L (38-126); Anion Gap 7 mmol/L (4-12); Aspartate Amino Transferase 26 U/L (14-36); Bilirubin,Total 0.7 mg/dL (0.2-1.3); Blood Urea Nitrogen 12 mg/dL (7-17); Calcium 9.5 mg/dL (8.4-10.2); Carbon Dioxide 27 mmol/L (22-30); Chloride 103 mmol/L (98-107); Estimated Glomerular Filt Rate 54; Glucose 125 mg/dL (65-110); Potassium 3.6 mmol/L (3.4-5.0); Sodium 137 mmol/L (137-145); Total Protein 6.7 g/dL (6.3-8.2)
[2025-09-11] MEDS: LACTATED RINGERS 1,000 ML 150 ML IV CONT (14:18)
--- NOTE | 2025-09-11 14:18 | P.CONGI_ITS ---
Assessment and Plan Assessment and plan (1) Acute upper GI bleed: Code(s): K92.2 - Gastrointestinal hemorrhage, unspecified Status: Acute Assessment and Plan: h/o ulcer per patient will proceed with egd today, differential esophagitis, ulcer, avm, etc iv protonix for now trend h/h (2) Melena: Code(s): K92.1 - Melena Status: Acute Assessment and Plan: hemoglobin low but relatively stable (3) GERD (gastroesophageal reflux disease): Code(s): K21.9 - Gastro-esophageal reflux disease without esophagitis Status: Acute Assessment and Plan: continue with ppi (4) Anemia: Code(s): D64.9 - Anemia, unspecified Status: Acute (5) Epigastric pain: Code(s): R10.13 - Epigastric pain Status: Acute Assessment and Plan: this has improved (6) Chronic kidney disease, stage 3: Code(s): N18.30 - Chronic kidney disease, stage 3 unspecified Status: Acute GI Consult Note Consult date/time: 09/11/25 14:18 Reason for consult: melena, coffee ground emesis HPI: Nely Sweeney is a 85 year old female past medical history post-polio syndrome, type 2 diabetes mellitus on oral medications, chronic kidney disease stage III, GERD and prior GI bleed requiring transfusion during covid time (had EGD and colonoscopy at another hospital, apparently had ulcer). She is here with new onset of melenic stools and coffee-ground emesis. She reports she began having hematemesis on the evening of the and the following afternoon melenic stools. She denies taking any blood thinners or NSAIDs. She does have intermittent GERD symptoms, also had epigastric pain that started just prior to onset of vomiting. Pain is not reproducible. She is taking pantoprazole. Hgb is 9-10 Review of Systems 2 Constitutional: Constitutional: Denies chills Eyes: Eyes: Denies blurry vision ENT: Reports Normal hearing present Cardiovascular: Cardiovascular: Denies chest pain Respiratory: Respiratory: Denies cough Gastrointestinal: Gastrointestinal: Reports melena, Reports nausea and Reports vomiting Musculoskeletal: Musculoskeletal: Denies neck pain Integumentary/Breasts: Skin/Breast: Denies rash Neurologic: Denies confusion Psychiatric: Psychiatric: Denies behavioral changes [facility] Past Medical History Medical History (Updated 09/11/25 @ 14:22 by Miguel Marshall MD) Epigastric pain C. difficile diarrhea (05/2024) Hypertension Pruritus (~06/27/24) Gastroesophageal reflux disease Hypothyroidism Type 2 diabetes mellitus Chronic kidney disease, stage 3 Depression Anxiety Cervical spondylosis Vertigo Vitamin D deficiency Arthritis Degenerative lumbar spinal stenosis Hyperlipidemia Post-polio syndrome Radiculopathy due to disorder of intervertebral disc of lumbar spine Chronic back pain Surgical History Surgical History Hx of decompressive lumbar laminectomy History of bilateral carpal tunnel release History of tonsillectomy History of back surgery History of right cataract surgery Family History Family History Mother Diabetes mellitus Cirrhosis of liver Sibling Alzheimer dementia Sibling Cancer Social History Social History Social History: Code status: DNR/DNI Surrogate medical decision maker: Judit Lopez, daughter Smoking status: Never smoker Second hand tobacco smoke exposure: No Alcohol intake: never Substance use: never Substance use type: does not use Lack of Transportation: No Lack of Food: Never True Current Housing: I Have Housing Concerned About Future Housing: No Difficulty Paying Gas/Electric Bills: No Difficulty Paying for Meds: No Currently Unemployed: Decline to Answer Education: High School Diploma/GED Difficulty w/ Childcare or Family Care: Decline to Answer Additional living arrangements comments: Lives with daughter in [place]. Spiritual care concerns: No Meds Home Medications and Allergies Home Medications ?Medication ?Instructions ?Recorded ?Confirmed ?Type acetaminophen 500 mg tablet 500 mg PO DAILY 05/28/24 1 11/11/24 History ergocalciferol (vitamin D2) 1,250 1,250 mcg PO .every other week #6 10/17/24 09/10/25 Rx mcg (50,000 unit) capsule (Vitamin caps D2) levothyroxine 25 mcg tablet 25 mcg PO DAILY #90 tabs 0 01/12/25 09/10/25 Rx ezetimibe 10 mg tablet (Zetia) 10 mg PO DAILY #30 tabs 05/31/25 09/10/25 Rx ferrous sulfate 325 mg (65 mg 325 mg PO .3x/week #36 t abs 05/31/25 09/10/25 Rx iron) tablet mecobalamin (vitamin B12) 1,000 1,000 mcg sublingual D AILY #90 tabs 05/31/25 09/10/25 Rx mcg disintegrating tablet,sublingual amlodipine 10 mg tablet 10 mg PO DAILY #30 tabs 05/1409/10/25 Rx citalopram 20 mg tablet 20 mg PO HS 09/10/25 5 History hydroxyzine HCl 25 mg tablet 25 mg PO TID PRN itching 09/10/25 09/10/25 History metformin 500 mg tablet,extended 500 mg PO HS 09/10/25 09/10/25 History release 24 hr (Glucophage XR) pantoprazole 40 mg tablet,delayed 40 mg PO HS 09/10/25 09/10/25 History release Allergies Allergy/AdvReac Type Severity Reaction Status Date / Time gabapentin AdvReac Mild Exsessive Verified 09/11/25 14:19 Sleepiness Vital Signs Vital Signs - 24 hr 09/10/25 15:48 09/10/25 16:24 09/10/25 17:12 Temperature 98.0 F Pulse Rate 68 69 72 Respiratory Rate 19 16 16 Blood Pressure 158/82 H 145/78 H 150/81 H Pulse Oximetry 100 98 97 Oxygen Delivery Room Air 09/10/25 18:22 09/10/25 19:01 09/10/25 20:01 Temperature Pulse Rate 70 72 70 Respiratory Rate 15 17 16 Blood Pressure 145/73 H 162/82 H 152/104 H Pulse Oximetry 99 99 97 Oxygen Delivery 09/10/25 20:31 09/10/25 21:16 09/10/25 21:31 Temperature 98.6 F 98.6 F Pulse Rate 70 67 73 Respiratory Rate 18 20 20 Blood Pressure 157/73 H 154/80 H 154/80 H Pulse Oximetry 97 94 99 Oxygen Delivery 09/10/25 22:07 09/11/25 00:00 09/11/25 04:00 Temperature 97.2 F L Pulse Rate 73 71 62 Respiratory Rate 18 Blood Pressure 132/73 Pulse Oximetry 96 Oxygen Delivery 09/11/25 04:31 09/11/25 06:00 Temperature 97.4 F L Pulse Rate 62 Respiratory Rate 18 Blood Pressure 141/67 H Pulse Oximetry 97 Oxygen Delivery Room Air Exam 2 Const: General: comfortable and no acute distress HENMT: Face/Nose/Sinus: Normal nares present Eyes: General: appearance normal, both eyes and all related structures Neck: Neck: supple Resp: Auscultation: clear to auscultation bilaterally Cardio: Rate: regular rate Rhythm: regular rhythm GI: Inspection: non-distended GI Palp: Yes Soft to palpation and No Tenderness to palpation present (GI) Auscultation: normal bowel sounds Skin: General skin exam: normal color Neuro: Speech: normal speech Extrem: General: normal to inspection Psych: Mental Status: mental status grossly normal Results Labs 09/11/25 10:08 09/11/25 10:08 Labs: Short CBC 09/10/25 09/10/25 09/11/25 Range/Units 16:07 22:08 04:31 WBC 10.2 H (4.5-10.0) K/mm3 Hgb 10.6 L 9.8 L 10.0 L (12.0-15.0) g/dL Hct 32.7 L 30.4 L 31.0 L (37.0-47.0) % Plt Count 389 H (150-375) k/mm3 09/11/25 Range/Units 10:08 WBC 8.5 (4.5-10.0) K/mm3 Hgb 9.7 L (12.0-15.0) g/dL Hct 30.3 L (37.0-47.0) % Plt Count 370 (150-375) k/mm3 BMP 09/10/25 09/11/25 16:07 10:08 Sodium 137 137 Potassium 3.8 3.6 Chloride 102 103 Carbon Dioxide 20 L 27 BUN 19 H D 12 D Creatinine 1.09 H 0.98 Glucose 172 H 125 H Calcium 9.5 9.5 Liver Function 09/10/25 09/11/25 Range/Units 16:07 10:08 Total Bilirubin 0.4 0.7 (0.2-1.3) mg/dL AST 31 26 (14-36) U/L ALT 18 13 (6-35) U/L Alkaline Phosphatase 108 96 (38-126) U/L Albumin 4.8 4.1 (3.5-5.1) g/dL Urine 09/10/25 Range/Units 16:48 Urine Color Yellow (Yellow) Urine Appearance Cloudy H (Clear) Urine pH 5.0 (5.0-9.0) Ur Specific [place] 1.022 (1.001-1.035) Urine Protein 2+ H (Negative) mg/dL Urine Glucose (UA) Negative (Negative) mg/dL
--- NOTE | 2025-09-11 14:46 | WPDANESEPPF ---
Anes - Initial Pre Proc Eval Procedure: Operation Date: 09/11/25 15:15 Proposed Procedures p Esophagogastroduodenoscopy - Miguel Marshall MD Date/Time: 09/11/25 14:46 Surgeon: Harjit Duarte MD Pre Op Diagnosis: GI Bleed Patient Data Age: 85 Gender: F Height: 1.5 m Weight: 57.4 kg Last Vital Signs Temp 97.5 F L 09/11/25 14:20 Pulse 72 09/11/25 14:20 Resp 18 09/11/25 14:20 BP 130/64 09/11/25 14:20 Pulse Ox 97 09/11/25 14:20 O2 Del Method Room Air 09/11/25 14:20 Allergies Allergy/AdvReac Type Severity Reaction Status Date / Time gabapentin AdvReac Mild Exsessive Verified 09/11/25 14:19 Sleepiness Home Medications ?Medication ?Instructions ?Recorded ?Confirmed ?Type acetaminophen 500 mg tablet 500 mg PO DAILY 05/28/24 09/10/25 History ergocalciferol (vitamin D2) 1,250 1,250 mcg PO .every other week #6 10/17/24 09/10/25 Rx mcg (50,000 unit) capsule (Vitamin caps D2) levothyroxine 25 mcg tablet 25 mcg PO DAILY #90 tabs 01/12/25 09/10/25 Rx ezetimibe 10 mg tablet (Zetia) 10 mg PO DAILY #30 tabs 05/31/25 09/10/25 Rx ferrous sulfate 325 mg (65 mg 325 mg PO .3x/week #36 tabs 05/31/25 09/10/25 Rx iron) tablet mecobalamin (vitamin B12) 1,000 1,000 mcg sublingual DAILY #90 tabs 05/31/25 09/10/25 Rx mcg disintegrating tablet,sublingual amlodipine 10 mg tablet 10 mg PO DAILY #30 tabs 08/27/25 09/10/25 Rx citalopram 20 mg tablet 20 mg PO HS 09/10/25 09/10/25 History hydroxyzine HCl 25 mg tablet 25 mg PO TID PRN itching 09/10/25 09/10/25 History metformin 500 mg tablet,extended 500 mg PO HS 09/10/25 09/10/25 History release 24 hr (Glucophage XR) pantoprazole 40 mg tablet,delayed 40 mg PO HS 09/10/25 09/10/25 History release Laboratory Tests 09/10/25 09/10/25 09/10/25 16:07 16:48 22:08 WBC 10.2 H K/mm3 (4.5-10.0) RBC 4.25 M/mm3 (4.2-5.4) Hgb 10.6 L g/dL 9.8 L g/dL (12.0-15.0) (12.0-15.0) Hct 32.7 L % 30.4 L % (37.0-47.0) (37.0-47.0) MCV 76.9 L fl (80-100) MCH 24.9 L pg (26-34) MCHC 32.4 g/dl (32-36) RDW 16.0 H % (11.5-14.5) Plt Count 389 H k/mm3 (150-375) MPV 9.5 fl (7.4-10.4) Immature Gran % (Auto) 0.3 % (0-0.5) Neut % (Auto) 56.5 % (45.5-73.1) Lymph % (Auto) 31.8 % (18.3-44.2) [place] % (Auto) 7.1 % (2.6-8.5) Eos % (Auto) 3.0 % (0-4.4) Baso % (Auto) 1.3 H % (0.2-1.2) Lymph # (Auto) 3.25 H K/mm3 (0.9-3.2) [place] # (Auto) 0.7 H K/mm3 (0.1-0.6) Eos # (Auto) 0.3 K/mm3 (0-0.3) Baso # (Auto) 0.1 K/mm3 (0.0-0.1) Abs Immat Gran (auto) 0.03 K/mm3 (0.00-0.031) Absolute Neuts (auto) 5.8 K/mm3 (1.3-6.7) Absolute Nucleated RBC 0.000 K/mm3 (0.0-0.012) Nucleated RBC % 0.0 % (0.0-0.2) PT 12.4 Seconds (11.1-14.7) INR 0.9 APTT 28.5 Seconds (22.3-36.8) Sodium 137 mmol/L (137-145) Potassium 3.8 mmol/L (3.4-5.0) Chloride 102 mmol/L (98-107) Carbon Dioxide 20 L mmol/L (22-30) Anion Gap 15 H mmol/L (4-12) BUN 19 H D mg/dL (7-17) Creatinine 1.09 H mg/dL (0.7-1.0) Estim Creat Clear Calc Not Reportable Estimated GFR 48 L (59 - ) Glucose 172 H mg/dL (65-110) POC Capillary Glucose Calcium 9.5 mg/dL (8.4-10.2) Total Bilirubin 0.4 mg/dL (0.2-1.3) AST 31 U/L (14-36) ALT 18 U/L (6-35) Alkaline Phosphatase 108 U/L (38-126) Total Protein 8.0 g/dL (6.3-8.2) Albumin 4.8 g/dL (3.5-5.1) Lipase 65 U/L (23-300) Urine Color Yellow (Yellow) Urine Appearance Cloudy H (Clear) Urine pH 5.0 (5.0-9.0) Ur Specific [place] 1.022 (1.001-1.035) Urine Protein 2+ H mg/dL (Negative) Urine Glucose (UA) Negative mg/dL (Negative) Urine Ketones Trace H mg/dL (Negative) Ur Blood (Man) Negative (Negative) Urine Nitrate Negative (Negative) Urine Bilirubin Negative (Negative) Urine Urobilinogen 0.2 mg/dL (<2.0) Leukocyte Esterase Rfl 2+ H MUNIRA/UL (Negative) Urine RBC 0-2 /hpf (0-2) Urine WBC 51-100 H /hpf (0-3) Ur Squamous Epith Cells Few /hpf (Few) Urine Bacteria None seen /hpf Urine Casts 0-2 Blood Type A Positive Antibody Screen Negative 09/11/25 09/11/25 09/11/25 04:31 10:08 14:19 WBC 8.5 K/mm3 (4.5-10.0) RBC 3.99 L M/mm3 (4.2-5.4) Hgb 10.0 L g/dL 9.7 L g/dL (12.0-15.0) (12.0-15.0) Hct 31.0 L % 30.3 L % (37.0-47.0) (37.0-47.0) MCV 77.2 L fl (80-100) MCH 24.6 L pg (26-34) MCHC 31.8 L g/dl (32-36) RDW 15.9 H % (11.5-14.5) Plt Count 370 k/mm3 (150-375) MPV 10.4 fl (7.4-10.4) Immature Gran % (Auto) 0.5 % (0-0.5) Neut % (Auto) 61.1 % (45.5-73.1) Lymph % (Auto) 24.7 % (18.3-44.2) [place] % (Auto) 7.1 % (2.6-8.5) Eos % (Auto) 5.3 H % (0-4.4) Baso % (Auto) 1.3 H % (0.2-1.2) Lymph # (Auto) 2.10 K/mm3 (0.9-3.2) [place] # (Auto) 0.6 K/mm3 (0.1-0.6) Eos # (Auto) 0.5 H K/mm3 (0-0.3) Baso # (Auto) 0.1 K/mm3 (0.0-0.1) Abs Immat Gran (auto) 0.04 H K/mm3 (0.00-0.031) Absolute Neuts (auto) 5.2 K/mm3 (1.3-6.7) Absolute Nucleated RBC 0.000 K/mm3 (0.0-0.012) Nucleated RBC % 0.0 % (0.0-0.2) PT INR APTT Sodium 137 mmol/L (137-145) Potassium 3.6 mmol/L (3.4-5.0) Chloride 103 mmol/L (98-107) Carbon Dioxide 27 mmol/L (22-30) Anion Gap 7 mmol/L (4-12) BUN 12 D mg/dL (7-17) Creatinine 0.98 mg/dL (0.7-1.0) Estim Creat Clear Calc Not Reportable Estimated GFR 54 L (59 - ) Glucose 125 H mg/dL (65-110) POC Capillary Glucose 118 H mg/dl (65-105) Calcium 9.5 mg/dL (8.4-10.2) Total Bilirubin 0.7 mg/dL (0.2-1.3) AST 26 U/L (14-36) ALT 13 U/L (6-35) Alkaline Phosphatase 96 U/L (38-126) Total Protein 6.7 g/dL (6.3-8.2) Albumin 4.1 g/dL (3.5-5.1) Lipase Urine Color Urine Appearance Urine pH Ur Specific [place] Urine Protein Urine Glucose (UA) Urine Ketones Ur Blood (Man) Urine Nitrate Urine Bilirubin Urine Urobilinogen Leukocyte Esterase Rfl Urine RBC Urine WBC Ur Squamous Epith Cells Urine Bacteria Urine Casts Blood Type Antibody Screen Patient hx anesthesia problems: none Family hx anesthesia problems: none Results Review: All pre-operative results and documents have been reviewed as part of the pre-operative evaluation. [facility] [place] Past Medical History Medical History Epigastric pain C. difficile diarrhea (05/2024) Hypertension Pruritus (~06/27/24) Gastroesophageal reflux disease Hypothyroidism Type 2 diabetes mellitus Chronic kidney disease, stage 3 Depression Anxiety Cervical spondylosis Vertigo Vitamin D deficiency Arthritis Degenerative lumbar spinal stenosis Hyperlipidemia Post-polio syndrome Radiculopathy due to disorder of intervertebral disc of lumbar spine Chronic back pain Surgical History Surgical History Hx of decompressive lumbar laminectomy History of bilateral carpal tunnel release History of tonsillectomy History of back surgery History of right cataract surgery Family History Family History Mother Diabetes mellitus Cirrhosis of liver Sibling Alzheimer dementia Sibling Cancer Social History Social History Social History: Code status: DNR/DNI Surrogate medical decision maker: Judit Lopez, daughter Smoking status: Never smoker Second hand tobacco smoke exposure: No Alcohol intake: never Substance use: never Substance use type: does not use Lack of Transportation: No Lack of Food: Never True Current Housing: I Have Housing Concerned About Future Housing: No Difficulty Paying Gas/Electric Bills: No Difficulty Paying for Meds: No Currently Unemployed: Decline to Answer Education: High School Diploma/GED Difficulty w/ Childcare or Family Care: Decline to Answer Additional living arrangements comments: Lives with daughter in [place]. Spiritual care concerns: No Anes - Eval Final PreProcedure Day of Procedure 09/11/25 14:46 Patient weight: normal Lungs: normal air movement Airway: Mallampati scale class II Neurological: alert and oriented Last oral intake: >/= 8 hours ASA classification: IV Emergent: no Anesthetic plan: proceed Anesthesia type and monitoring: general GIVS and standard monitoring Results Review: All pre-operative results and documents have been reviewed as part of the pre-operative evaluation. Anemia/melena, CKD stage 3, DM fsbs 118, hx of postpolio syndrome, now for EGD for eval for melena. Informed Consent: The patient's anesthetic plan and its attendant risks and benefits were discussed with the patient/family/POA. Questions were solicited and answers provided to the satisfaction of the patient/family/POA.
--- NOTE | 2025-09-11 14:57 | S_PTH ---
PATIENT: Nely Sweeney LOC: [id number] U#:[id number] AGE/SX: 85/F ROOM: 342 RE09/11/[address]: Alex Lagunas PA-C : 1940 BED: 01 DIS: 09/12/2025 SPEC #: [id number] RECD: 09/12/25 09:54 STATUS: CLAUDIA RELisette #: [id number] ALEX: 09/11/25 14:[address]: Miguel Marshall DEPT: [facility] Surgical RECD BY: Claribel Quesada ENTERED: 09/12/25 09:55 SP TYPE: Surgical OTHR DR: TROY Morataya MD Larissa Jones, APRN Tissues: A - Gastric Biopsy Procedures: Hematoxylin and Eosin Stain Gross and Microscopic Level 4 H.Pylori
[2025-09-11 16:09] LABS: Hematocrit 30.6 % (37.0-47.0); Hemoglobin 9.6 g/dL (12.0-15.0)
[2025-09-11] MEDS: PANTOPRAZOLE 40 MG TABLET PO (21:08)
[2025-09-12] VITALS: PULSE 61
[2025-09-12 04:00] VITALS: PULSE 52
[2025-09-12 05:19] VITALS: BP 133/61; PULSE 62; RESP 16; TEMP 36.6; O2SAT 97
[2025-09-12 06:12] LABS: Hematocrit 28.2 % (37.0-47.0); Hemoglobin 9.0 g/dL (12.0-15.0); Immature Granulocyte Percent A 0.3 % (0-0.5); Lymphocytes Absolute Auto 2.27 K/mm3 (0.9-3.2); Mean Corpuscular HGB Conc 31.9 g/dl (32-36); Mean Corpuscular Hemoglobin 24.5 pg (26-34); Mean Corpuscular Volume 76.8 fl (80-100); Nucleated Red Blood Cells Absolute Auto 0.000 K/mm3 (0.0-0.012); Nucleated Red Blood Cells Perc 0.0 % (0.0-0.2); Platelet Count Result 334 k/mm3 (150-375); Red Blood Count 3.67 M/mm3 (4.2-5.4); White Blood Count 7.7 K/mm3 (4.5-10.0)
[2025-09-12] MEDS: LEVOTHYROXINE SODIUM 25 MCG TABLET PO (06:19)
[2025-09-12 06:47] LABS: Alanine Aminotransferase 12 U/L (6-35); Albumin Level 3.6 g/dL (3.5-5.1); Alkaline Phosphatase 84 U/L (38-126); Anion Gap 5 mmol/L (4-12); Aspartate Amino Transferase 24 U/L (14-36); Bilirubin,Total 0.5 mg/dL (0.2-1.3); Blood Urea Nitrogen 17 mg/dL (7-17); Calcium 8.9 mg/dL (8.4-10.2); Carbon Dioxide 25 mmol/L (22-30); Chloride 106 mmol/L (98-107); Estimated Glomerular Filt Rate 49; Glucose 149 mg/dL (65-110); Potassium 3.6 mmol/L (3.4-5.0); Sodium 136 mmol/L (137-145); Total Protein 6.2 g/dL (6.3-8.2)
--- NOTE | 2025-09-12 07:38 | P.PNIM_ITS ---
Assessment and Plan Assessment and Plan (1) Acute upper GI bleed: Code(s): K92.2 - Gastrointestinal hemorrhage, unspecified Status: Acute Assessment and Plan: * Monitor serum electrolytes, CBC, hemoglobin/hematocrit q.8 hours. If hemoglobin drops below 7 transfuse packed red blood cells * Monitor for bloody bowel movements,chest pain,SOB or dizziness/lightheadedness * GI consult * Pantoprazole BID * Diet: NPO * DVT Px: SCDs * Avoid anti-coagulations (2) Melena: Code(s): K92.1 - Melena Status: Acute Assessment and Plan: * see above (3) Sterile pyuria: Code(s): R82.81 - Pyuria Status: Acute Assessment and Plan: * UA abnormal although no evidence of bacteria * Hx of chronic urinary frequency but no significant leukocytosis * previous micro reviewed * started on Rocephin in ER - discontinue Subjective Date/time seen: 09/12/25 07:38 Interval history: 85-year-old female with a past medical history post-polio syndrome, type 2 diabetes mellitus on oral medications, chronic kidney disease stage III, GERD and prior GI bleed requiring transfusion in the distant past who presented to the ER due to melenic stools and coffee-ground emesis. 09/12/2025 Patient sitting comfortably In bed at time of examination. Review of Systems Review of Systems: 12 systems were reviewed with pertinent positives and negatives per HPI. Except as documented in the HPI, all other systems were reviewed and are negative. Exam Narrative: Weight 57.4 kg BMI 25.6 Const: Other: Overweight, no acute distress, appears stated age, lying naked in bed HENMT: Other: Head is normocephalic atraumatic, mucous membranes are tacky, no oral pharyngeal erythema, upper dentures in place, edentulous in lower jaw Eyes: Other: Pupils are equal and reactive, no scleral icterus, no conjunctival pallor Neck: Other: No JVD, large neck circumference Resp: Other: Clear to auscultation bilaterally, no increased work of breathing Cardio: Other: Faint cardiac murmur, regular rate, regular rhythm, 2+ bilateral radial pedal pulses GI: Other: Soft, nontender, normoactive bowel sounds distended : Other: Pure wick catheter in place Skin: Other: No pallor, non jaundice, dry skin to the back and shoulders, no rash Neuro: Other: Alert orient x4, speech is clear, no facial asymmetry, no localizing neurologic deficits noted during the course of conversation Extrem: Other: No clubbing, cyanosis or edema Psych: Other: Appropriate mood and affect, pleasant and cooperative, judgment and insight intact Objective Data Vital Signs Vital Signs: Vital Signs - 24 hr 09/11/25 08:00 09/11/25 12:00 09/11/25 14:20 Temperature 97.5 F L Pulse Rate 63 70 72 Respiratory Rate 18 Blood Pressure 130/64 Pulse Oximetry 97 Oxygen Delivery Room Air 09/11/25 15:00 09/11/25 15:10 09/11/25 15:20 Temperature Pulse Rate 68 71 64 Respiratory Rate 20 20 22 H Blood Pressure 124/48 L 122/46 L 117/76 Pulse Oximetry 98 97 98 Oxygen Delivery Room Air Room Air Room Air 09/11/25 16:00 09/11/25 20:00 09/11/25 20:00 Temperature Pulse Rate 67 57 L Respiratory Rate Blood Pressure Pulse Oximetry Oxygen Delivery Room Air 09/11/25 20:50 09/12/25 00:00 09/12/25 04:00 Temperature 98.6 F Pulse Rate 70 61 52 L Respiratory Rate 16 Blood Pressure 128/57 L Pulse Oximetry 93 Oxygen Delivery 09/12/25 05:19 Temperature 97.8 F Pulse Rate 62 Respiratory Rate 16 Blood Pressure 133/61 Pulse Oximetry 97 Oxygen Delivery Intake/Output Intake/Output: Intake & Output 09/09/25 09/10/25 09/11/25 09/12/25 23:59 23:59 23:59 23:59 Intake Total 50 1250 300 Output Total 2375 150 Balance 50 -1125 150 Meds/Results Medications: Active Medications Generic Name Dose Route Start Last Admin Trade Name Freq PRN Reason Stop Dose Admin Amlodipine Besylate 10 mg 09/11/25 09:00 09/11/25 08:23 Amlodipine Besylate 10 Mg Tablet PO 10 mg DAILY SAMUEL Administration Citalopram Hydrobromide 20 mg 09/11/25 00:20 09/11/25 21:08 Citalopram Hydrobromide 20 Mg Tablet PO 20 mg HS SAMUEL Administration Hydroxyzine HCl 50 mg 09/11/25 05:34 09/11/25 21:12 Hydroxyzine Hcl 25 Mg Tablet PO 50 mg TID PRN Administration Itching Levothyroxine Sodium 25 mcg 09/11/25 06:30 09/12/25 06:19 Levothyroxine Sodium 25 Mcg Tablet PO 25 mcg DAILY@0630 SAMUEL Administration Pantoprazole Sodium 40 mg 09/11/25 21:00 09/11/25 21:08 Pantoprazole 40 Mg Tablet PO 40 mg Q12HR SAMUEL Administration Labs Labs: Laboratory Results - last 24 hr 09/11/25 09/11/25 09/11/25 10:08 14:19 15:56 WBC 8.5 RBC 3.99 L Hgb 9.7 L 9.6 L Hct 30.3 L 30.6 L MCV 77.2 L MCH 24.6 L MCHC 31.8 L RDW 15.9 H Plt Count 370 MPV 10.4 Immature Gran % (Auto) 0.5 Neut % (Auto) 61.1 Lymph % (Auto) 24.7 [place] % (Auto) 7.1 Eos % (Auto) 5.3 H Baso % (Auto) 1.3 H Lymph # (Auto) 2.10 [place] # (Auto) 0.6 Eos # (Auto) 0.5 H Baso # (Auto) 0.1 Abs Immat Gran (auto) 0.04 H Absolute Neuts (auto) 5.2 Absolute Nucleated RBC 0.000 Nucleated RBC % 0.0 Sodium 137 Potassium 3.6 Chloride 103 Carbon Dioxide 27 Anion Gap 7 BUN 12 D Creatinine 0.98 Estim Creat Clear Calc Not Reportable Estimated GFR 54 L Glucose 125 H POC Capillary Glucose 118 H Calcium 9.5 Total Bilirubin 0.7 AST 26 ALT 13 Alkaline Phosphatase 96 Total Protein 6.7 Albumin 4.1 09/12/25 06:06 WBC 7.7 RBC 3.67 L Hgb 9.0 L Hct 28.2 L MCV 76.8 L MCH 24.5 L MCHC 31.9 L RDW 15.7 H Plt Count 334 MPV 9.6 Immature Gran % (Auto) 0.3 Neut % (Auto) 52.7 Lymph % (Auto) 29.7 [place] % (Auto) 8.2 Eos % (Auto) 7.8 H Baso % (Auto) 1.3 H Lymph # (Auto) 2.27 [place] # (Auto) 0.6 Eos # (Auto) 0.6 H Baso # (Auto) 0.1 Abs Immat Gran (auto) 0.02 Absolute Neuts (auto) 4.0 Absolute Nucleated RBC 0.000 Nucleated RBC % 0.0 Sodium 136 L Potassium 3.6 Chloride 106 Carbon Dioxide 25 Anion Gap 5 BUN 17 Creatinine 1.07 H Estim Creat Clear Calc Not Reportable Estimated GFR 49 L Glucose 149 H POC Capillary Glucose Calcium 8.9 Total Bilirubin 0.5 AST 24 ALT 12 Alkaline Phosphatase 84 Total Protein 6.2 L Albumin 3.6 Quality VTE Prophylaxis VTE prophylaxis: mechanical ordered (SCDs)
[2025-09-12 08:00] VITALS: PULSE 76; PULSE 99
[2025-09-12] MEDS: PANTOPRAZOLE 40 MG TABLET PO (08:38)
--- NOTE | 2025-09-12 10:14 | P.DS_ITS ---
DS: Admitting Diagnosis Discharge Date 09/12/2025 Admitting Diagnosis GI bleed DS: Discharge Diagnosis Discharge Diagnosis (1) Acute upper GI bleed: Code(s): K92.2 - Gastrointestinal hemorrhage, unspecified Status: Acute Assessment and Plan: * Monitor serum electrolytes, CBC, hemoglobin/hematocrit q.8 hours. If hemoglobin drops below 7 transfuse packed red blood cells * Monitor for bloody bowel movements,chest pain,SOB or dizziness/lightheadedness * GI consult * Pantoprazole BID * Diet: NPO * DVT Px: SCDs * Avoid anti-coagulations (2) Melena: Code(s): K92.1 - Melena Status: Acute Assessment and Plan: * see above (3) Sterile pyuria: Code(s): R82.81 - Pyuria Status: Acute Assessment and Plan: * UA abnormal although no evidence of bacteria * Hx of chronic urinary frequency but no significant leukocytosis * previous micro reviewed * started on Rocephin in ER - discontinue DS: Summary Hospital Course Reason for hospitalization: Weakness, gi bleed Hospital Course: The patient is an 85-year-old female with a history of GERD, prior upper GI bleed requiring transfusion, CKD stage III, type 2 diabetes, and post-polio syndrome who presented with coffee-ground emesis and melena. On arrival, she was hemodynamically stable with no ongoing hematemesis and only one reported episode of melena prior to admission. Initial labs demonstrated [id number] microcytic anemia with hemoglobin decreasing from 10.6 g/dL to a blane of approximately 9.7 g/dL, without evidence of hemodynamic instability or need for transfusion. She was made NPO, her home oral pantoprazole was held, and she was started on IV pantoprazole twice daily. Serial hemoglobin and hematocrit remained relatively stable. Gastroenterology was consulted, and given her prior history of ulcer disease, an upper GI source was suspected with differential including peptic ulcer disease, esophagitis, or vascular lesion; EGD was planned for further evaluation. During admission, urinalysis showed pyuria without bacteriuria or systemic signs of infection, felt to be most consistent with sterile pyuria. Given her lack of urinary symptoms and prior history of C. difficile colitis, empiric ceftriaxone started in the emergency department was discontinued. Renal function improved with IV fluids, and CKD remained at baseline. Epigastric pain and nausea improved with acid suppression, and no further episodes of overt GI bleeding were observed during hospitalization. EGD was performed on 09/11 which showed normal mucosa with no varices esophagitis ulcers or mass. Alert hiatal hernia was found at the GE junction with a depth of 32 cm to 38 cm from incisors. Moderate gastritis in the antrum with moderate erythematous and edematous changes. A single benign ulcer, nonbleeding was visualized in the antrum. The bulb in the 2nd portion of the duodenum was normal with no ulcers or masses. Discussed the case with Dr. Peoples who recommended discharge at this time with follow-up in the outpatient setting in his office in 1 week. H&H has remained stable throughout hospitalization. She is otherwise hemodynamically stable at this point and feels ready for discharge. She requires no other acute intervention and can be safely discharged with appropriate follow-up with GI in 1 week. Status at Discharge Functional status at discharge: independent ambulation Overall status at discharge: patient is back to baseline Time Spent with Patient Time attestation: Total time spent providing and/or coordinating discharge services: 30 Exam Narrative: Weight 57.4 kg BMI 25.6 Const: Other: Overweight, no acute distress, appears stated age, lying naked in bed HENMT: Other: Head is normocephalic atraumatic, mucous membranes are tacky, no oral pharyngeal erythema, upper dentures in place, edentulous in lower jaw Eyes: Other: Pupils are equal and reactive, no scleral icterus, no conjunctival pallor Neck: Other: No JVD, large neck circumference Resp: Other: Clear to auscultation bilaterally, no increased work of breathing Cardio: Other: Faint cardiac murmur, regular rate, regular rhythm, 2+ bilateral radial pedal pulses GI: Other: Soft, nontender, normoactive bowel sounds distended Skin: Other: No pallor, non jaundice, dry skin to the back and shoulders, no rash Neuro: Other: Alert orient x4, speech is clear, no facial asymmetry, no localizing neurologic deficits noted during the course of conversation Extrem: Other: No clubbing, cyanosis or edema Psych: Other: Appropriate mood and affect, pleasant and cooperative, judgment and insight intact DS: Data Data Completed and Pending Pending studies at discharge: Pending at discharge 09/11/25 14:57 Surgical [PTH] Routine Labs on day of discharge: Labs from last 24 hours 09/12/25 09/11/25 09/11/25 06:06 15:56 14:19 WBC 7.7 RBC 3.67 L Hgb 9.0 L 9.6 L Hct 28.2 L 30.6 L MCV 76.8 L MCH 24.5 L MCHC 31.9 L RDW 15.7 H Plt Count 334 MPV 9.6 Immature Gran % (Auto) 0.3 Neut % (Auto) 52.7 Lymph % (Auto) 29.7 [place] % (Auto) 8.2 Eos % (Auto) 7.8 H Baso % (Auto) 1.3 H Lymph # (Auto) 2.27 [place] # (Auto) 0.6 Eos # (Auto) 0.6 H Baso # (Auto) 0.1 Abs Immat Gran (auto) 0.02 Absolute Neuts (auto) 4.0 Absolute Nucleated RBC 0.000 Nucleated RBC % 0.0 Sodium 136 L Potassium 3.6 Chloride 106 Carbon Dioxide 25 Anion Gap 5 BUN 17 Creatinine 1.07 H Estim Creat Clear Calc Not Reportable Estimated GFR 49 L Glucose 149 H POC Capillary Glucose 118 H Calcium 8.9 Total Bilirubin 0.5 AST 24 ALT 12 Alkaline Phosphatase 84 Total Protein 6.2 L Albumin 3.6 09/11/25 10:08 WBC 8.5 RBC 3.99 L Hgb 9.7 L Hct 30.3 L MCV 77.2 L MCH 24.6 L MCHC 31.8 L RDW 15.9 H Plt Count 370 MPV 10.4 Immature Gran % (Auto) 0.5 Neut % (Auto) 61.1 Lymph % (Auto) 24.7 [place] % (Auto) 7.1 Eos % (Auto) 5.3 H Baso % (Auto) 1.3 H Lymph # (Auto) 2.10 [place] # (Auto) 0.6 Eos # (Auto) 0.5 H Baso # (Auto) 0.1 Abs Immat Gran (auto) 0.04 H Absolute Neuts (auto) 5.2 Absolute Nucleated RBC 0.000 Nucleated RBC % 0.0 Sodium 137 Potassium 3.6 Chloride 103 Carbon Dioxide 27 Anion Gap 7 BUN 12 D Creatinine 0.98 Estim Creat Clear Calc Not Reportable Estimated GFR 54 L Glucose 125 H POC Capillary Glucose Calcium 9.5 Total Bilirubin 0.7 AST 26 ALT 13 Alkaline Phosphatase 96 Total Protein 6.7 Albumin 4.1 Preliminary micro results at discharge 09/10/25 16:48 - Preliminary Urine Clean Catch Gram negative bacilli isolated Discharge Plan Discharge Attending physician on discharge: Adair Gimenez Consulting providers: Alex Lagunas; Miguel Marshall Discharging Clinician: Alex Lagunas Anticipated Discharge Date/Time: 09/12/25 09:44 Patient Disposition: Home Activity: as tolerated Diet: regular Discharge Instructions: Discharge disposition: Home Take medications as prescribed Monitor blood pressures Take caution while standing, rising, or moving Change positions slowly taking a break between each position change If you standing feel dizzy sit back down and take a break Encouraged to continue with yearly vaccinations Return to the emergency department if you develop sudden shortness of breath, chest pain, nausea, vomiting, upset stomach or intractable diarrhea Return to the emergency department if you develop fever greater than 101.5 Follow-up with the primary care physician within 1-2 weeks Follow-up with Dr. Marshall with Gastroenterology in 1 week regarding the results of your EGD Thank you for [facility] for your healthcare needs Patient Instructions: Antibiotic Form Patient Language: Slovenian Stand Alone Forms: General Discharge Information Follow-up/Referrals: Jessica Chen APRN [Primary Care Provider, Family Practice] Miguel Marshall MD [Physician, Gastroenterology] Discharge Medications: Continued ezetimibe [Zetia] 10 mg tablet 10 mg PO DAILY Qty: 30 11RF ferrous sulfate 325 mg (65 mg iron) tablet 325 mg PO .3x/week Qty: 36 3RF Rx Instructions: take at least 4 hours after levothyroxine mecobalamin (vitamin B12) 1,000 mcg tablet,disintegrating 1,000 mcg sublingual DAILY Qty: 90 3RF Rx Instructions: place tablet under tongue and allow to dissolve for at least30 secs before swallowing acetaminophen 500 mg Tablet 500 mg PO DAILY citalopram 20 mg tablet 20 mg PO HS pantoprazole 40 mg tablet,delayed release (DR/EC) 40 mg PO HS hydroxyzine HCl 25 mg tablet 25 mg PO TID PRN (Reason: itching) ergocalciferol (vitamin D2) [Vitamin D2] 1,250 mcg (50,000 unit) capsule 1,250 mcg PO .every other week Qty: 6 3RF levothyroxine 25 mcg tablet 25 mcg PO DAILY Qty: 90 3RF amlodipine 10 mg tablet 10 mg PO DAILY Qty: 30 5RF Discontinued metformin [Glucophage XR] 500 mg tablet extended release 24 hr 500 mg PO HS Date of admission: 09/11/25 10:39 Primary Care Provider: Jessica Chen Admitting Provider: Ignacio Duarte Attending physician on admission: Ignacio Duarte Condition: Stable Quality VTE Prophylaxis VTE prophylaxis: mechanical ordered (SCDs)
[2025-09-12] MEDS: INFLUENZA VACCINE HIGH DOSE (>64) 180 MCG/0.5 ML SYRINGE IM (11:03)
== END 2025-09-12 11:17 | disposition home or self-care (01) | DRG 379 ==
LOC: ANHED 17:21 → ANH3MEDSUR 17:51 → ANH3MED 21:24
PROVIDERS: Internal Medicine; Internal Medicine Gastroenterology; Admitting Provider Internal Medicine; Emergency Provider Emergency Medicine; PCP Nurse Practitioner Family; Visit Provider Physician Assistant
PROC: 0DJ08ZZ Inspection of Upper Intestinal Tract, Via Natural or Artificial Opening Endoscopic (ICD-10-PCS; principal; 2025-09-11 15:15)
DX: K25.4 Chronic or unspecified gastric ulcer with hemorrhage (principal); K29.70 Gastritis, unspecified, without bleeding; K44.9 Diaphragmatic hernia without obstruction or gangrene; E11.22 Type 2 diabetes mellitus with diabetic chronic kidney disease; I12.9 Hypertensive chronic kidney disease with stage 1 through stage 4 chronic kidney disease, or unspecified chronic kidney disease; N18.30 Chronic kidney disease, stage 3 unspecified; R82.81 Pyuria; K21.9 Gastro-esophageal reflux disease without esophagitis; Z23 Encounter for immunization; G14 Postpolio syndrome; D64.9 Anemia, unspecified; E03.9 Hypothyroidism, unspecified; Z79.85 Long-term (current) use of injectable non-insulin antidiabetic drugs; M19.90 Unspecified osteoarthritis, unspecified site
CPT/HCPCS: 36415; 80053; 81001; 82948; 83690; 85014; 85018; 85025; 85610; 85730; 86850; 86900; 86901; 87086; 87186; 88305; 88342; 90471; 90662; 96365; 96375; 96376; 99285; A9270; G0008; G0378; J0696; J2003; J2470; J2704; J7030; J7120